=== PATIENT | female | born 1980 | race Caucasian/White ===

== ENCOUNTER → 2018-06-20 | Outpatient (CLI) | payer OTHER ==
[2018-06-20 15:00] VITALS: BP 138/72; PULSE 78; TEMP 98.2
--- NOTE | 2018-06-20 15:24 | P.HPBAR ---
Bariatric H&P - History & Physicial H&P Date: 06/20/18 History & Physicial: Visit/CC: inital clinic visit Patient initial contact: Initial weight: Initial weight in pounds: Height: 5 ft 2 in Initial BMI: Last weight: Current weight: Current weight in pounds: Current BMI: [place] body weight (based on NIH guidelines): 49.895 kg Excess body weight loss: The patient is a 38 year-old F who presents for Bariatric Assessment. Patient presents today as a new patient bariatric evaluation. Patient recently went to a seminar put on by Dr. Latham. She just recently started a 6 month supervised weight loss program. She has done 2 months so far. Patient suffers from GERD symptoms. No DVT or dysphagia in the past. Interested in sleeve gastrectomy. Review of Systems The patient denies any acute changes in vision or hearing, no dysphagia or odynophagia, no chest pain or shortness of breath, no dysuria or hematuria, no headache, no runny nose, no rectal bleeding or melena, no unexplained weight loss Past Medical History Past Medical History: Osteoarthritis (OA) History of Any Multi-Drug Resistant Organisms: None Reported Past Surgical History: Section, Tonsillectomy Past Anesthesia/Blood Transfusion Reactions: No Reported Reaction Past Psychological History: No Psychological Hx Reported Smoking Status: Former smoker Past Alcohol Use History: None Reported Additional Past Alcohol Use History / Comment(s): quit 6 months ago Past Drug Use History: None Reported Surgical - Exam Vital Signs Temp Pulse BP 98.2 F 78 138/72 06/20/18 14:52 06/20/18 14:52 06/20/18 14:52 Physical exam: General: Well-developed, well-nourished HEENT: Normocephalic, sclerae nonicteric Abdomen: Nontender, nondistended Extremities: No edema Neuro: Alert and oriented Bariatric Assessment & Plan (1) Morbid obesity Narrative/Plan: 38-year-old female with morbid obesity. Surgical risks and benefits of sleeve gastrectomy and gastric bypass reviewed. Patient remains interested in sleeve gastrectomy. The risks of bleeding, infection, stenosis, stricture, leak, abscess, fistula formation, peritonitis, poor weight loss, reflux, vomiting, conversion to an open procedure, aborting sleeve gastrectomy, UT, PE, DVT, and were discussed. The patient understands and wishes to proceed. Status: Acute Bariatric Checklist Checklist: Plan: Checklist: EGD: 1. Hiatal hernia: 2. H. Pylori: HgbA1c: Vitamin D: Smoking: Former smoker Primary care physician referral: dr brownlee Psychiatry clearance: Cardiology clearance: Sleep study: Diet journal: VTE risk score: VTE risk level: Rehab needs at discharge:
== END | disposition home or self-care (01) ==
LOC: BARWHC3 14:16
PROVIDERS: ATTEND Surgery
DX: E66.01 Morbid (severe) obesity due to excess calories (principal); Z87.891 Personal history of nicotine dependence; Z68.42 Body mass index [BMI] 45.0-49.9, adult
CPT/HCPCS: 99201

== ENCOUNTER 2020-10-14 15:38 | Emergency (ER) | payer OTHER ==
[2020-10-14 16:00] VITALS: BP 131/75; PULSE 98; RESP 18; TEMP 99.1
[2020-10-14] MEDS ORDERED: KETOROLAC 15 MG/ML 1 ML VIAL IM STA (16:19)
--- NOTE | 2020-10-14 16:38 | ED ---
General Adult HPI - General Chief complaint: Extremity Problem,Nontraumatic Stated complaint: R Leg Pain Time Seen by Provider: 10/14/20 16:03 Source: patient, RN notes reviewed, old records reviewed Mode of arrival: ambulatory Limitations: no limitations - History of Present Illness Initial comments: 40-year-old female patient to the ED for evaluation of right posterior hamstring pain. Patient reports that she has some localized tenderness in her left posterior hamstring region. Denies any other areas of pain or any falls or trauma. Denies any back pain, saddle anesthesia, new onset paresthesias or weakness. Systemic: Pt denies fatigue, fever/chills, rash. Pt denies weakness, night sweats, weight loss. Neuro: Pt denies headache, visual disturbances, syncope or pre-syncope. HEENT: Pt denies ocular discharge or irritation, otalgia, rhinorrhea, pharyngitis or notable lymphadenopathy. Cardiopulmonary: Pt denies chest pain, SOB, heart palpitations, dyspnea on exertion. Abdominal/GI: Pt denies abdominal pain, n/v/d. : Pt denies dysuria, burning w/ urination, frequency/urgency. Denies new onset urinary or bowel incontinence. MSK: Pt denies loss of strength or function in extremities. Neuro: Pt denies new onset weakness, paresthesias. - Related Data Home Medications Medication Instructions Recorded Confirmed Phentermine HCl [Adipex P] 15 mg PO DAILY 06/20/18 06/20/18 Allergies Allergy/AdvReac Type Severity Reaction Status Date / Time shellfish derived [Shellfish] Allergy Rash/Hives Verified 10/14/20 16:00 latex AdvReac Rash/Hives Verified 10/14/20 16:00 Review of Systems ROS Statement: Those systems with pertinent positive or pertinent negative responses have been documented in the HPI. ROS Other: All systems not noted in ROS Statement are negative. Past Medical History Past Medical History: Osteoarthritis (OA) History of Any Multi-Drug Resistant Organisms: None Reported Past Surgical History: Section, Tonsillectomy Additional Past Surgical History / Comment(s): lithotripsy Past Anesthesia/Blood Transfusion Reactions: No Reported Reaction Past Psychological History: Anxiety Smoking Status: Current every day smoker Past Alcohol Use History: None Reported Past Drug Use History: None Reported General Exam - General Exam Comments Initial Comments: Constitutional: NAD, AOX3, Pt has pleasant affect. HEENT: NC/AT, trachea midline, neck supple, no lymphadenopathy. Posterior pharynx non erythematous, without exudates. External ears appear normal, without discharge. Mucous membranes moist. Eyes PERRLA, EOM intact. There is no scleral icterus. No pallor noted. Cardiopulmonary: RRR, no murmurs, rubs or gallops, no JVD noted. Lungs CTAB in anterior and posterior cleary. No peripheral edema. Abdominal exam: Abdomen soft and non-distended. Abdomen non-tender to palpation in all 4 quadrants. Bowel sounds active in LLQ. No hepatosplenomegaly. No ecchymosis Neuro: CN II-XII grossly intact. No nuchal rigidity. No raccon eyes, no flores sign, no hemotympanum. No cervical spinal tenderness. MSK: mild tenderness to the right posterior hamstring region. No skin changes. Distal strength intact and equal. Distal pulses intact and equal. No posterior calf tenderness bilaterally, homans sign negative bilaterally. Posterior tibialis and radial pulse +2 bilaterally. Sensation intact in upper and lower extremities. Full active ROM in upper and lower extremities, 5/5 stregnth. Limitations: no limitations Course Vital Signs 10/14/20 10/14/20 10/14/20 15:57 16:59 17:20 Temperature 99.1 F 99.1 F Pulse Rate 98 98 Respiratory 18 18 18 Rate Blood Pressure 131/75 131/75 O2 Sat by Pulse 97 97 Oximetry Medical Decision Making - Medical Decision Making 40-year-old female patient ED for left posterior hamstring pain. Ultrasound was negative for DVT. There is no external skin changes. Pain reproducible with movement, appears to be musculoskeletal. Distal pulses and strength intact and equal. Patient will use [id number] analgesia Tylenol and Motrin will follow-up with primary care provider tomorrow and return for any worsening symptoms. Case discussed with Dr. Maurice. Disposition Clinical Impression: Myalgia Disposition: HOME SELF-CARE Condition: Stable Instructions (If sedation given, give patient instructions): Musculoskeletal Pain (ED) Additional Instructions: Follow up with PCP tomorrow. Return to ED with any worsening symptoms. Is patient prescribed a controlled substance at d/c from ED?: No Referrals: Henry Coyne MD [Primary Care Provider] - 1-2 days
--- NOTE | 2020-10-14 16:46 | US ---
EXAMINATION TYPE: US venous doppler duplex LE RT DATE OF EXAM: 10/14/2020 4:40 PM COMPARISON: NONE CLINICAL HISTORY: pain. right leg pain x 2 days, no h/o dvt SIDE PERFORMED: Right TECHNIQUE: The lower extremity deep venous system is examined utilizing real time linear array sonog soumya with graded compression, doppler sonography and color-flow sonography. VESSELS IMAGED: Common Femoral Vein Deep Femoral Vein Greater Saphenous Vein * Femoral Vein Popliteal Vein Small Saphenous Vein * Proximal Calf Veins (* superficial vessels) Right Leg: Negative for DVT IMPRESSION: No evidence of deep vein thrombosis in the right leg.
== END 2020-10-14 17:23 | disposition home or self-care (01) ==
LOC: EC 15:38
DX: M79.10 Myalgia, unspecified site (principal); F17.200 Nicotine dependence, unspecified, uncomplicated; Z79.899 Other long term (current) drug therapy; Z91.013 Allergy to seafood; Z91.040 Latex allergy status
CPT/HCPCS: 93971; 99284; 96372; J1885

== ENCOUNTER 2023-03-13 21:20 | Emergency (ER) | payer OTHER ==
[2023-03-13 21:30] VITALS: BP 150/105; PULSE 72; RESP 16; TEMP 98.2
[2023-03-13] MEDS ORDERED: SODIUM CHLORIDE 0.9% 1,000 ML IV STA (21:55)
[2023-03-13] MEDS ORDERED: methylPREDNISolone SOD SUCCI 125 MG/2 ML VIAL IV STA (21:56)
[2023-03-13] MEDS ORDERED: FAMOTIDINE 20 MG/2 ML VIAL IV STA (21:56)
[2023-03-13] MEDS ORDERED: diphenhydrAMINE 50 MG/ML 1 ML VIAL IVP STA (21:56)
--- NOTE | 2023-03-13 22:05 | ED ---
Dizziness HPI - General Chief Complaint: Dizziness Stated Complaint: vertigo Time Seen by Provider: 03/13/23 21:41 Source: patient, RN notes reviewed Mode of arrival: ambulatory Limitations: no limitations - History of Present Illness Initial Comments: This is a 42-year-old female who presents to the emergency department for dizziness. States that over the last 3-4 days, she has had dizziness that seems to get worse with positional changes. Describes this as a room spinning sensation. Believes that she is having problems with vertigo. However, her largest concern is that after the dizziness episodes, she goes into a "brain fog", where she is slow to respond and almost confused for a period of time. She did have some problems with chest pain a couple of days ago and is currently experiencing sinus pressure. However, she believes that the chest pain was indigestion, as it resolved with Tums. Denies any shortness of breath, nausea, or vomiting. Denies any upper respiratory symptoms. Denies any hearing loss, she does have ringing in the ears, however that is not a new problem. Denies any fevers, chills, sore throat, cough, dyspnea, palpitations, abdominal pain, nausea, vomiting, diarrhea, or back pain. MD Complaint: dizziness, lightheadedness Onset/Timin -: days(s) Description: "room spinning" History of Same: No History of Trauma: No - Related Data Home Medications Medication Instructions Recorded Confirmed Phentermine HCl [Adipex P] 15 mg PO DAILY 06/20/18 06/20/18 Previous Rx's Medication Instructions Recorded Meclizine [Antivert] 25 mg PO TID PRN #20 tab 03/13/23 Metoclopramide [Reglan] 10 mg PO Q6H PRN #20 tab 03/13/23 Allergies Allergy/AdvReac Type Severity Reaction Status Date / Time shellfish derived [Shellfish] Allergy Rash/Hives Verified 03/13/23 21:26 latex AdvReac Rash/Hives Verified 03/13/23 21:26 Review of Systems ROS Statement: Those systems with pertinent positive or pertinent negative responses have been documented in the HPI. ROS Other: All systems not noted in ROS Statement are negative. Past Medical History Past Medical History: Osteoarthritis (OA) History of Any Multi-Drug Resistant Organisms: None Reported Past Surgical History: Section, Tonsillectomy Additional Past Surgical History / Comment(s): lithotripsy Past Anesthesia/Blood Transfusion Reactions: No Reported Reaction Past Psychological History: Anxiety Smoking Status: Former smoker, Vaper Past Alcohol Use History: Rare Past Drug Use History: Marijuana General Exam Limitations: no limitations General appearance: alert, in no apparent distress Head exam: Present: atraumatic, normocephalic, normal inspection Eye exam: Present: normal appearance, PERRL, EOMI. Absent: scleral icterus, conjunctival injection, periorbital swelling Pupils: Present: normal accommodation ENT exam: Present: TM's normal bilaterally, normal external ear exam Respiratory exam: Present: normal lung sounds bilaterally. Absent: respiratory distress, wheezes, rales, rhonchi, stridor Cardiovascular Exam: Present: regular rate, normal rhythm, normal heart sounds. Absent: systolic murmur, diastolic murmur, rubs, gallop, clicks Neurological exam: Present: alert, oriented X3, CN II-XII intact Expanded Cerebellar function: Finger to Nose: Normal, Heel to Isabel: Normal, Romberg: Normal Motor strength exam: RUE: 5, LUE: 5, RLE: 5, LLE: 5 Psychiatric exam: Present: normal affect, normal mood Skin exam: Present: warm, dry, intact, normal color. Absent: rash Course Vital Signs 03/13/23 21:26 Temperature 98.2 F Pulse Rate 72 Respiratory 16 Rate Blood Pressure 150/105 O2 Sat by Pulse 99 Oximetry Medical Decision Making - Medical Decision Making This is a 42-year-old female who presents to the emergency department for dizziness. Was pt. sent in by a medical professional or institution? @ -No Did you speak to anyone other than the patient for history? @ -Her spouse Did you review nursing and triage notes? @ -Yes, and I agree, it is accurate with regards to the patient's symptoms. Were old charts reviewed? @ -No Differential Diagnosis? @ -Differential Dizziness: Benign paroxysmal positional Vertigo, Menieres disease, otitis media, acoustic neuroma, vertebrobasilar insufficiency, cerebellar stroke, encephalitis, hypovolemic, arrhythmia, coronary artery syndrome, anemia, this is not meant to be an all-inclusive list EKG interpreted by me (3pts min.)? @ -Sinus bradycardia. Ventricular rate 56 bpm, OR interval 172 ms, QRS duratio n 86 ms, QTC [address] interpreted by me (1pt min.)? @ -Computed tomography scan of the brain without contrast and CT angiogram of the head and neck obtained. My interpretation identifies no evidence of any ischemic changes, intracranial hemorrhage, aneurysm, or mass effect. What testing was considered but not performed? (CT, X-rays, U/S, labs)? Why? @ -None What meds were considered but not given? Why? @ -None Did you discuss the management of the patient with other professionals? @ -No Did you reconcile home meds? @ -No Was smoking cessation discussed for >3mins.? @ -No Was critical care preformed (if so, how long)? @ -No Were there social determinants of health that impacted care today? How? (Homelessness, low income, unemployed, alcoholism, drug addiction, transportation, low edu. Level, literacy, decrease access to med. care, [facility] [facility], rehab)? @ -No Was there de-escalation of care discussed even if they declined? (Discuss DNR or withdrawal of care, Hospice)? @ -No What co-morbidities impacted this encounter? (DM, HTN, Smoking, COPD, CAD, Cancer, CVA, Hep., AIDS, mental health diagnosis, sleep apnea, morbid obesity)? @ -None Was patient admitted / discharged? @ -Discharged. Lab work obtained and found to be nonactionable. The bradycardia on her EKG is a chronic finding according to the patient. Given that she does not have a history of vertigo, stroke workup was obtained with a computed tomography scan of the brain without contrast and CT angiogram of the head and neck. Imaging reveals no acute findings. She does have a shellfish allergy and was given Solu-Medrol, Benadryl, and Pepcid prior to the computed tomography scan. Because she received the Benadryl, she was not immediately given meclizine. However, she did feel like she had improvement in symptoms following the Benadryl. She was able to turn her head and walk around without the dizziness returning. Given that symptoms improved with an antihistamine, are positional in nature, and because her workup was otherwise unremarkable, symptoms most likely related to a vertigo. Additionally, she has no HEAD CAGER signs or symptoms to suggest a central lesion. Patient overall feels substantially improved and requests discharge home. Prescription for meclizine and Reglan provided with dosing instructions reviewed. Advised she start with the meclizine, and if that is not effective, she can try taking the Reglan. Also advised she look up the half somersault maneuver by Dr. Deya Allen on YouTube for additional treatment options. She will follow up with her primary care provider for reevaluation of ongoing symptoms. Undiagnosed new problem with uncertain prognosis? @ -None Drug Therapy requiring intensive monitoring for toxicity (Heparin, Nitro, Insulin, Cardizem)? @ -None Were any procedures done? @ -None Diagnosis/symptom? @ -BPPV Acute, or Chronic, or Acute on Chronic? @ -Acute Uncomplicated (without systemic symptoms) or Complicated (systemic symptoms)? @ -Uncomplicated Side effects of treatment? @ -None Exacerbation, Progression, or Severe Exacerbation] @ -Not applicable Poses a threat to life or bodily function? @ -No Return precautions reviewed in depth, the patient is instructed to return to the emergency department with any new, worsening, or concerning symptoms. Patient verbalized understanding. This case was discussed in detail with the attending ED physician, Dr. Stuart. Presentation, findings, and treatment plan discussed in detail as well. - Lab Data Result diagrams: 03/13/23 22:20 03/13/23 22:20 Lab Results 03/13/23 03/13/23 03/13/23 Range/Units 22:08 22:20 22:20 WBC 6.5 (3.8-10.6) k/uL RBC 3.88 (3.80-5.40) m/uL Hgb 12.5 (11.4-16.0) gm/dL Hct 37.5 (34.0-46.0) % MCV 96.5 (80.0-100.0) fL MCH 32.2 (25.0-35.0) pg MCHC 33.4 (31.0-37.0) g/dL RDW 12.2 (11.5-15.5) % Plt Count 193 (150-450) k/uL MPV 8.5 Neutrophils % 62 % Lymphocytes % 30 % Monocytes % 5 % Eosinophils % 2 % Basophils % 1 % Neutrophils # 4.1 (1.3-7.7) k/uL Lymphocytes # 1.9 (1.0-4.8) k/uL Monocytes # 0.3 (0-1.0) k/uL Eosinophils # 0.1 (0-0.7) k/uL Basophils # 0.0 (0-0.2) k/uL PT 9.9 (9.0-12.0) sec INR 0.9 (<1.2) Sodium (137-145) mmol/L Potassium (3.5-5.1) mmol/L Chloride (98-107) mmol/L Carbon Dioxide (22-30) mmol/L Anion Gap mmol/L BUN (7-17) mg/dL Creatinine (0.52-1.04) mg/dL Est GFR (CKD-EPI)AfAm (>60 ml/min/1.73 sqM) Est GFR (CKD-EPI)NonAf (>60 ml/min/1.73 sqM) Glucose (74-99) mg/dL Plasma Lactic Acid Parveen (0.7-2.0) mmol/L Calcium (8.4-10.2) mg/dL Total Bilirubin (0.2-1.3) mg/dL AST (14-36) U/L ALT (4-34) U/L Alkaline Phosphatase (38-126) U/L Troponin I (0.000-0.034) ng/mL Total Protein (6.3-8.2) g/dL Albumin (3.5-5.0) g/dL Urine Color Light Yellow Urine Appearance Clear (Clear) Urine pH 7.0 (5.0-8.0) Ur Specific Harvey 1.014 (1.001-1.035) Urine Protein Negative (Negative) Urine Glucose (UA) Negative (Negative) Urine Ketones Negative (Negative) Urine Blood Small H (Negative) Urine Nitrite Negative (Negative) Urine Bilirubin Negative (Negative) Urine Urobilinogen <2.0 (<2.0) mg/dL Ur Leukocyte Esterase Negative (Negative) Urine RBC 4 (0-5) /hpf Urine WBC <1 (0-5) /hpf Ur Squamous Epith Cells 1 (0-4) /hpf Urine Mucus Rare H (None) /hpf Urine Opiates Screen Not Detected (NotDetected) Ur Oxycodone Screen Not Detected (NotDetected) Urine Methadone Screen Not Detected (NotDetected) Ur Propoxyphene Screen Not Detected (NotDetected) Ur Barbiturates Screen Not Detected (NotDetected) U Tricyclic Antidepress Not Detected (NotDetected) Ur Phencyclidine Scrn Not Detected (NotDetected) Ur Amphetamines Screen Not Detected (NotDetected) U Methamphetamines Scrn Not Detected (NotDetected) U Benzodiazepines Scrn Not Detected (NotDetected) Urine Cocaine Screen Not Detected (NotDetected) U Marijuana (THC) Screen Detected H (NotDetected) 03/13/23 03/13/23 03/13/23 Range/Units 22:20 22:20 22:20 WBC (3.8-10.6) k/uL RBC (3.80-5.40) m/uL Hgb (11.4-16.0) gm/dL Hct (34.0-46.0) % MCV (80.0-100.0) fL MCH (25.0-35.0) pg MCHC (31.0-37.0) g/dL RDW (11.5-15.5) % Plt Count (150-450) k/uL MPV Neutrophils % % Lymphocytes % % Monocytes % % Eosinophils % % Basophils % % Neutrophils # (1.3-7.7) k/uL Lymphocytes # (1.0-4.8) k/uL Monocytes # (0-1.0) k/uL Eosinophils # (0-0.7) k/uL Basophils # (0-0.2) k/uL PT (9.0-12.0) sec INR (<1.2) Sodium 134 L (137-145) mmol/L Potassium 4.2 (3.5-5.1) mmol/L Chloride 106 (98-107) mmol/L Carbon Dioxide 23 (22-30) mmol/L Anion Gap 5 mmol/L BUN 18 H (7-17) mg/dL Creatinine 0.73 (0.52-1.04) mg/dL Est GFR (CKD-EPI)AfAm >90 (>60 ml/min/1.73 sqM) Est GFR (CKD-EPI)NonAf >90 (>60 ml/min/1.73 sqM) Glucose 114 H (74-99) mg/dL Plasma Lactic Acid Parveen 0.6 L (0.7-2.0) mmol/L Calcium 8.4 (8.4-10.2) mg/dL Total Bilirubin 0.4 (0.2-1.3) mg/dL AST 21 (14-36) U/L ALT 22 (4-34) U/L Alkaline Phosphatase 59 (38-126) U/L Troponin I <0.012 (0.000-0.034) ng/mL Total Protein 6.3 (6.3-8.2) g/dL Albumin 3.6 (3.5-5.0) g/dL Urine Color Urine Appearance (Clear) Urine pH (5.0-8.0) Ur Specific Harvey (1.001-1.035) Urine Protein (Negative) Urine Glucose (UA) (Negative) Urine Ketones (Negative) Urine Blood (Negative) Urine Nitrite (Negative) Urine Bilirubin (Negative) Urine Urobilinogen (<2.0) mg/dL Ur Leukocyte Esterase (Negative) Urine RBC (0-5) /hpf Urine WBC (0-5) /hpf Ur Squamous Epith Cells (0-4) /hpf Urine Mucus (None) /hpf Urine Opiates Screen (NotDetected) Ur Oxycodone Screen (NotDetected) Urine Methadone Screen (NotDetected) Ur Propoxyphene Screen (NotDetected) Ur Barbiturates Screen (NotDetected) U Tricyclic Antidepress (NotDetected) Ur Phencyclidine Scrn (NotDetected) Ur Amphetamines Screen (NotDetected) U Methamphetamines Scrn (NotDetected) U Benzodiazepines Scrn (NotDetected) Urine Cocaine Screen (NotDetected) U Marijuana (THC) Screen (NotDetected) - Radiology Data Radiology results: report reviewed, image reviewed Disposition Clinical Impression: BPPV (benign paroxysmal positional vertigo) Disposition: HOME SELF-CARE Instructions (If sedation given, give patient instructions): Vertigo (ED), Benign Paroxysmal Positional Vertigo (ED), Dizziness (ED) Additional Instructions: Return to the emergency department with any new, worsening, or concerning symptoms. If symptoms return, try taking the Antivert. If that is not effective, you can try taking the Reglan. The Reglan can also be used for nausea. You can also look up the half sommersault maneuver on Youtube by Dr. Deya Allen. This is another treatment option for vertigo symptoms. Follow up with your primary care provider in 1-2 days. Prescriptions: Meclizine [Antivert] 25 mg PO TID PRN #20 tab PRN Reason: Nausea And Vomiting Metoclopramide [Reglan] 10 mg PO Q6H PRN #20 tab PRN Reason: Nausea And Vomiting Is patient prescribed a controlled substance at d/c from ED?: No Referrals: Henry Coyne MD [Primary Care Provider] - 1-2 days
[2023-03-13 22:44] LABS: Basophils % (A) 1 %; Eosinophils # (A) 0.1 k/uL (0-0.7); Eosinophils % (A) 2 %; HCT 37.5 % (34.0-46.0); HGB 12.5 gm/dL (11.4-16.0); Lymphocytes # (A) 1.9 k/uL (1.0-4.8); Lymphocytes % (A) 30 %; MCH 32.2 pg (25.0-35.0); MCHC 33.4 g/dL (31.0-37.0); MCV 96.5 fL (80.0-100.0); Mean Platelet Volume 8.5; Monocytes # (A) 0.3 k/uL (0-1.0); Monocytes % (A) 5 %; Neutrophils # (A) 4.1 k/uL (1.3-7.7); Neutrophils % (A) 62 %; Platelet Count 193 k/uL (150-450); RBC 3.88 m/uL (3.80-5.40); RDW 12.2 % (11.5-15.5); WBC 6.5 k/uL (3.8-10.6)
[2023-03-13 22:49] LABS: INR 0.9 (<1.2); Prothrombin Time 9.9 sec (9.0-12.0)
[2023-03-13 23:05] LABS: Appearance,Urine Clear (Clear); Bilirubin,Urine Negative (Negative); Blood,Urine Small (Negative); Color,Urine Light Yellow; Glucose,Urine (UA) Negative (Negative); Ketones,Urine Negative (Negative); Leukocyte Esterase,Urine Negative (Negative); Mucus,Urine Rare /hpf; Nitrite,Urine Negative (Negative); Protein,Urine Negative (Negative); RBC,Urine 4 /hpf (0-5); Specific Gravity,Urine 1.014 (1.001-1.035); Squamous Epithelial Cell,Urine 1 /hpf (0-4); Urobilinogen,Urine <2.0 mg/dL (<2.0); WBC,Urine <1 /hpf (0-5)
[2023-03-13 23:07] LABS: Amphetamine Screen,Urine Not Detected (NotDetected); Barbiturate Screen,Urine Not Detected (NotDetected); Benzodiazepines Screen,Urine Not Detected (NotDetected); Cocaine Screen,Urine Not Detected (NotDetected); Methadone Screen, Urine Not Detected (NotDetected); Opiate Screen,Urine Not Detected (NotDetected); Oxycodone Screen, Urine Not Detected (NotDetected); Phencyclidine Screen,Urine Not Detected (NotDetected); Tricyclic Antidepressant,Urine Not Detected (NotDetected); Urn Cannabinoid Scrn Detected (NotDetected)
[2023-03-13 23:09] LABS: ALT 22 U/L (4-34); AST 21 U/L (14-36); African American GFR (CKD) >90 (>60 ml/min/1.73 sqM); Albumin 3.6 g/dL (3.5-5.0); Alkaline Phosphatase 59 U/L (38-126); Anion Gap 5 mmol/L; Blood Urea Nitrogen 18 mg/dL (7-17); Calcium 8.4 mg/dL (8.4-10.2); Carbon Dioxide 23 mmol/L (22-30); Chloride 106 mmol/L (98-107); Glucose 114 mg/dL (74-99); Non-African American GFR(CKD) >90 (>60 ml/min/1.73 sqM); Potassium 4.2 mmol/L (3.5-5.1); Sodium 134 mmol/L (137-145); Total Bilirubin 0.4 mg/dL (0.2-1.3); Total Protein 6.3 g/dL (6.3-8.2)
--- NOTE | 2023-03-13 23:24 | CT ---
EXAMINATION TYPE: CT brain wo con CT DLP: 2126.9 mGycm, Automated exposure control for dose reduction was used. DATE OF EXAM: 03/13/2023 11:20 PM COMPARISON: None. CLINICAL INDICATION:Female, 42 years old with history of dizziness, dizzy TECHNIQUE: Brain: Multiple axial CT images of the brain were obtained without IV contrast. Coronal and sagittal reformats reviewed. FINDINGS: Brain: Extra-axial spaces: No abnormal extra-axial fluid collections. Ventricular system: Within normal limits Cerebral parenchyma: No acute intraparenchymal hemorrhage or mass effect. The epps-white junction is well differentiated. Cerebellum: Unremarkable. Mass effect: No evidence of midline shift. Intracranial vasculature: unremarkable Soft tissues: Normal. Calvarium/osseous structures: No depressed skull fracture. Paranasal sinuses and mastoid air cells: Clear Visualized orbits: Orbital contents are intact. IMPRESSION: No acute intracranial process.
--- NOTE | 2023-03-13 23:28 | CT ---
EXAMINATION TYPE: CT angio head neck CT DLP: 2126.9 mGycm, Automated exposure control for dose reduction was used. DATE OF EXAM: 03/13/2023 11:20 PM COMPARISON: CT brain of the same date. CLINICAL INDICATION:Female, 42 years old with history of Dizziness, disorientation; PHH, dizzy TECHNIQUE: Axially acquired helical CT angiogram of the head and neck was obtained with contrast util izing 65 cc of Isovue-370 administered intravenously. Axial images are supplemented with 3D reconstru ctions which were post-processed at an independent workstation. NASCET criteria used. FINDINGS: CTA HEAD: No evidence of acute intracranial hemorrhage, mass effect, or midline shift. The ventricles, sulci, a nd cisterns are unremarkable. The visualized portions of the internal carotid arteries, middle cerebral arteries, anterior cerebral arteries, and posterior cerebral arteries are patent. The basilar and vertebral arteries are patent. CTA NECK: Right Carotid System: The common carotid artery and external carotid artery are patent. The carotid bifurcation demonstrate s no evidence of hemodynamically significant stenosis. The remaining portions of the internal carotid artery demonstrate normal size without significant narrowing. Left Carotid System: The common carotid artery and external carotid artery are patent. The carotid bifurcation demonstrate s no evidence of hemodynamically significant stenosis. The remaining portions of the internal carotid artery demonstrate normal size without significant narrowing. Vertebral arteries are patent without evidence hemodynamically significant stenosis. There is a three-vessel aortic arch. The origins of the great vessels are patent. No evidence of hemo dynamically significant stenosis. IMPRESSION: 1. No evidence of dissection of the cervical internal carotid arteries or vertebral arteries or any e vidence of significant stenosis at the carotid bifurcations. 2. No evidence of high-grade stenosis or intracranial aneurysm.
[2023-03-13] MEDS ORDERED: METOCLOPRAMIDE 10 MG TAB PO STA (23:41)
[2023-03-13] MEDS ORDERED: MECLIZINE 12.5 MG TAB PO STA (23:41)
== END 2023-03-14 00:54 | disposition home or self-care (01) ==
LOC: EC 21:20
DX: H81.13 Benign paroxysmal vertigo, bilateral (principal); F17.290 Nicotine dependence, other tobacco product, uncomplicated; F12.90 Cannabis use, unspecified, uncomplicated; Z91.040 Latex allergy status; Z91.018 Allergy to other foods
CPT/HCPCS: 36415; 93005; 80053; 83605; 84484; 85025; 85610; 81001; 80306; 70496; 70450; 70498; 99284; 96374; 96375 ×2; 96361; J1200; J2930; Q9967

== ENCOUNTER 2023-04-13 18:57 | Inpatient (IN) | payer OTHER ==
[2023-04-13] MEDS ORDERED: methylPREDNISolone SOD SUCCIN 1,000 MG in SODIUM CHLORIDE 0.9% 250 ML IVPB STA (21:40)
[2023-04-13 22:13] LABS: Basophils % (A) 1 %; Eosinophils # (A) 0.1 k/uL (0-0.7); Eosinophils % (A) 1 %; HCT 42.4 % (34.0-46.0); HGB 14.6 gm/dL (11.4-16.0); Lymphocytes # (A) 2.4 k/uL (1.0-4.8); Lymphocytes % (A) 27 %; MCH 32.8 pg (25.0-35.0); MCHC 34.5 g/dL (31.0-37.0); MCV 95.1 fL (80.0-100.0); Monocytes # (A) 0.4 k/uL (0-1.0); Monocytes % (A) 4 %; Neutrophils # (A) 6.1 k/uL (1.3-7.7); Neutrophils % (A) 67 %; Platelet Count 238 k/uL (150-450); RBC 4.46 m/uL (3.80-5.40); RDW 12.2 % (11.5-15.5); WBC 9.1 k/uL (3.8-10.6)
[2023-04-13 22:26] LABS: ALT 24 U/L (4-34); AST 22 U/L (14-36); African American GFR (CKD) >90 (>60 ml/min/1.73 sqM); Albumin 4.1 g/dL (3.5-5.0); Alkaline Phosphatase 69 U/L (38-126); Anion Gap 10 mmol/L; Blood Urea Nitrogen 17 mg/dL (7-17); Calcium 9.1 mg/dL (8.4-10.2); Carbon Dioxide 21 mmol/L (22-30); Chloride 106 mmol/L (98-107); Glucose 95 mg/dL (74-99); Non-African American GFR(CKD) >90 (>60 ml/min/1.73 sqM); Potassium 3.9 mmol/L (3.5-5.1); Sodium 137 mmol/L (137-145); Total Bilirubin 0.5 mg/dL (0.2-1.3); Total Protein 6.9 g/dL (6.3-8.2)
[2023-04-13 22:27] LABS: C Reactive Protein <0.5 mg/dL (<1.0)
--- NOTE | 2023-04-13 23:08 | CT ---
EXAMINATION TYPE: CT brain wo con CT DLP: 1143.4 mGycm, Automated exposure control for dose reduction was used. DATE OF EXAM: 04/13/2023 11:01 PM COMPARISON: 03/13/2022. CLINICAL INDICATION:Female, 42 years old with history of optic neuritis, Vision loss to Left eye x3da ys. Rt leg tingling and numbness x1wk. TECHNIQUE: Brain: Axial CT images of the brain were obtained with coronal and sagittal reformats created and rev iewed. Contrast used: None. Oral contrast used: None. FINDINGS: Brain: Extra-axial spaces: No abnormal extra-axial fluid collections. Ventricular system: Within normal limits Cerebral parenchyma: No specific low-density area in the right posterior parietal region is unchanged from prior No acute intraparenchymal hemorrhage or mass effect. The epps-white junction is well dif ferentiated. Cerebellum: Unremarkable. Mass effect: No evidence of midline shift. Intracranial vasculature: unremarkable Soft tissues: Normal. Calvarium/osseous structures: No depressed skull fracture. Paranasal sinuses and mastoid air cells: Mild scattered paranasal sinus disease. Visualized orbits: Orbital contents are intact. IMPRESSION: Nonspecific white matter changes within the right posterior parietal region, consider further evaluat ion with MRI as clinically warranted. Similar to 03/13/2023. Finding could represent demyelination.
--- NOTE | 2023-04-13 23:10 | ED ---
General Adult HPI - General Chief complaint: Eye Problems Stated complaint: vision issues Time Seen by Provider: 04/13/23 21:13 Source: patient Mode of arrival: ambulatory Limitations: no limitations - History of Present Illness Initial comments: 42-year-old female presents to the emergency department reporting left vision loss. States that it has been progressive over the past couple of days. She awoke this morning and had complete vision loss in the left eye. States that it hurts. She saw a vp securities at 3:50 PM. States that she was there for 3 hours and had a full eye exam. Patient does have a piece of paper accompanying her which states that there is concern for optic neuritis on the left. Recommend MRI and steroids. Patient also admits to paresthesias in the right lower extremity. No history of similar issues in the past. Does admit to a headache. No fevers. No head trauma. No weakness in her extremities. Upper extremities are not affected at this time. No other alleviating, precipitating or modifying factors - Related Data Home Medications Medication Instructions Recorded Confirmed Ibuprofen [Motrin] 800 mg PO TID PRN 04/14/23 04/14/23 Previous Rx's Medication Instructions Recorded Acetaminophen Tab [Tylenol] 650 mg PO Q6HR PRN tab 04/17/23 Ergocalciferol [Vitamin D2 (1250 1,250 mcg PO Q7D #10 cap 04/17/23 Mcg = 99972 Iu)] predniSONE 10 mg PO DAILY #30 tab 04/17/23 Allergies Allergy/AdvReac Type Severity Reaction Status Date / Time shellfish derived [Shellfish] Allergy Rash/Hives Verified 04/14/23 11:04 latex AdvReac Rash/Hives Verified 04/14/23 11:04 Review of Systems ROS Statement: Those systems with pertinent positive or pertinent negative responses have been documented in the HPI. ROS Other: All systems not noted in ROS Statement are negative. Past Medical History Past Medical History: Osteoarthritis (OA) Additional Past Medical History / Comment(s): Kidney stones History of Any Multi-Drug Resistant Organisms: None Reported Past Surgical History: Section, Tonsillectomy Additional Past Surgical History / Comment(s): lithotripsy Past Anesthesia/Blood Transfusion Reactions: No Reported Reaction Past Psychological History: Anxiety Smoking Status: Former smoker, Vaper Past Alcohol Use History: Rare Past Drug Use History: Marijuana - Past Family History Mother Family Medical History: Cancer, Hypertension Father Family Medical History: Hypertension General Exam Limitations: no limitations General appearance: alert, in no apparent distress Head exam: Present: atraumatic, normocephalic, normal inspection Eye exam: Present: normal appearance, PERRL, EOMI. Absent: scleral icterus, conjunctival injection, periorbital swelling ENT exam: Present: normal exam, mucous membranes moist Neck exam: Present: normal inspection. Absent: tenderness, meningismus, lymphadenopathy Respiratory exam: Present: normal lung sounds bilaterally. Absent: respiratory distress, wheezes, rales, rhonchi, stridor Cardiovascular Exam: Present: regular rate, normal rhythm, normal heart sounds. Absent: systolic murmur, diastolic murmur, rubs, gallop, clicks GI/Abdominal exam: Present: soft, normal bowel sounds. Absent: distended, tenderness, guarding, rebound, rigid Extremities exam: Present: normal inspection, full ROM, normal capillary refill. Absent: tenderness, pedal edema, joint swelling, calf tenderness Back exam: Present: normal inspection Neurological exam: Present: alert, oriented X3, CN II-XII intact Psychiatric exam: Present: normal affect, normal mood Skin exam: Present: warm, dry, intact, normal color. Absent: rash Course Vital Signs 04/13/23 04/14/23 18:58 02:24 Temperature 97.7 F Pulse Rate 73 63 Respiratory 20 16 Rate Blood Pressure 122/74 109/63 O2 Sat by Pulse 100 97 Oximetry Medical Decision Making - Medical Decision Making Was pt. sent in by a medical professional or institution (, PA, POLICE WORKER, urgent care, hospital, or fci...) When possible be specific @ -no Did you speak to anyone other than the patient for history (EMS, parent, family, police, friend...)? What history was obtained from this source @ -no Did you review nursing and triage notes (agree or disagree)? Why? @ -I reviewed and agree with nursing and triage notes Were old charts reviewed (outside hosp., previous admission, EMS record, old EKG, old radiological studies, urgent care reports/EKG's, fci records)? Report findings @ -no old charts were reviewed Differential Diagnosis (chest pain, altered mental status, abdominal pain women, abdominal pain men, vaginal bleeding, weakness, fever, dyspnea, syncope, headache, dizziness, GI bleed, back pain, seizure, CVA, palpatations, mental health, musculoskeletal)? @ -cva,CRVO, CRAO, retinal detachment EKG interpreted by me (3pts min.). @ -not done X-rays interpreted by me (1pt min.). @ -not done CT interpreted by me (1pt min.). @ -yes - concerning for MS U/S interpreted by me (1pt. min.). @ -None done What testing was considered but not performed or refused? (CT, X-rays, U/S, labs)? Why? @ -None What meds were considered but not given or refused? Why? @ -None Did you discuss the management of the patient with other professionals (professionals i.e. , PA, POLICE WORKER, lab, RT, psych nurse, mental health social worker, state superintendent of schools, teacher, loan servicing officer, business case analyst)? Give summary @ -Dr Saxena - reqesting MRI Was smoking cessation discussed for >3mins.? @ -No Was critical care preformed (if so, how long)? @ -No Were there social determinants of health that impacted care today? How? (Homelessness, low income, unemployed, alcoholism, drug addiction, tra nsportation, low edu. Level, literacy, decrease access to med. care, halfway, rehab)? @ -No Was there de-escalation of care discussed even if they declined (Discuss DNR or withdrawal of care, Hospice)? DNR status @ -No What co-morbidities impacted this encounter? (DM, HTN, Smoking, COPD, CAD, Cancer, CVA, ARF, Chemo, Hep., AIDS, mental health diagnosis, sleep apnea, morbid obesity)? @ -None Was patient admitted / discharged? Hospital course, mention meds given and route, prescriptions, significant lab abnormalities, going to OR and other pertinent info. @ -Upon arrival the patient is placed into room 19. A thorough history and physical exam was performed. His visual acuity is assessed and is extremely poor in the left eye - hand waving only appreciated. Laboratory studies are conducted. Patient is sent for CT which demonstrates concern for demyelinating condition. Patient was given 1 g of methylprednisolone. Recommended admission. Called and spoke with Dr. saxena Is Requesting MRI of the Brain and Orbits. Spoke with Dr. martin for admission Undiagnosed new problem with uncertain prognosis? @ -yes Drug Therapy requiring intensive monitoring for toxicity (Heparin, Nitro, Insulin, Cardizem)? @ -No Were any procedures done? @ -no Diagnosis/symptom? @ -acute visal loss left eye, acute optic neuritis left eye, suspected MS Acute, or Chronic, or Acute on Chronic? @ -acute Uncomplicated (without systemic symptoms) or Complicated (systemic symptoms)? @ -complicated Side effects of treatment? @ -No Exacerbation, Progression, or Severe Exacerbation? @ -No Poses a threat to life or bodily function? How? (Chest pain, [place], [place], pneumonia, PE, COPD, DKA, ARF, appy, cholecystitis, CVA, Diverticulitis, Homicidal, Suicidal, threat to staff... and all critical care pts) @ -no - Lab Data Result diagrams: 04/15/23 06:01 04/15/23 06:01 Lab Results 04/13/23 04/13/23 Range/Units 21:45 21:45 WBC 9.1 (3.8-10.6) k/uL RBC 4.46 (3.80-5.40) m/uL Hgb 14.6 (11.4-16.0) gm/dL Hct 42.4 (34.0-46.0) % MCV 95.1 (80.0-100.0) fL MCH 32.8 (25.0-35.0) pg MCHC 34.5 (31.0-37.0) g/dL RDW 12.2 (11.5-15.5) % Plt Count 238 (150-450) k/uL MPV 8.0 Neutrophils % 67 % Lymphocytes % 27 % Monocytes % 4 % Eosinophils % 1 % Basophils % 1 % Neutrophils # 6.1 (1.3-7.7) k/uL Lymphocytes # 2.4 (1.0-4.8) k/uL Monocytes # 0.4 (0-1.0) k/uL Eosinophils # 0.1 (0-0.7) k/uL Basophils # 0.0 (0-0.2) k/uL ESR 9 (0-20) mm/hr Sodium 137 (137-145) mmol/L Potassium 3.9 (3.5-5.1) mmol/L Chloride 106 (98-107) mmol/L Carbon Dioxide 21 L (22-30) mmol/L Anion Gap 10 mmol/L BUN 17 (7-17) mg/dL Creatinine 0.66 (0.52-1.04) mg/dL Est GFR (CKD-EPI)AfAm >90 (>60 ml/min/1.73 sqM) Est GFR (CKD-EPI)NonAf >90 (>60 ml/min/1.73 sqM) Glucose 95 (74-99) mg/dL Calcium 9.1 (8.4-10.2) mg/dL Total Bilirubin 0.5 (0.2-1.3) mg/dL AST 22 (14-36) U/L ALT 24 (4-34) U/L Alkaline Phosphatase 69 (38-126) U/L C-Reactive Protein <0.5 (<1.0) mg/dL Total Protein 6.9 (6.3-8.2) g/dL Albumin 4.1 (3.5-5.0) g/dL Disposition Clinical Impression: Vision loss of left eye, Multiple sclerosis Disposition: ADMITTED IP TO THIS [facility] Condition: Good Is patient prescribed a controlled substance at d/c from ED?: No Time of Disposition: 23:53 Decision to Admit Reason: Admit from EC Decision Date: 04/13/23 Decision Time: 23:53
[2023-04-13 23:14] LABS: Erythrocyte Sedimentation Rate 9 mm/hr (0-20)
[2023-04-13] MEDS ORDERED: NALOXONE 0.4 MG/ML 1 ML VIAL IV PRN (23:54)
[2023-04-14] MEDS ORDERED: LORazepam 1 MG TAB PO STA (08:22)
--- NOTE | 2023-04-14 14:26 | MR ---
EXAMINATION TYPE: MR brain/orbits wo/w con DATE OF EXAM: 04/14/2023 COMPARISON: CT brain April 13, 2023 HISTORY: MS. Vision loss to Left eye x4days. Rt leg tingling and numbness x1wk TECHNIQUE: Multiplanar, multisequence images of the brain and brainstem along with orbits are all performed with out and with IV contrast, utilizing 10 mL intravenous Gadavist gadolinium contrast is administered in travenously. Demyelinating disease protocol with additional Sagittal Flair sequence performed. FINDINGS: T2 Lesions Present : Yes Approximate Number of Lesions: Approximately 15 Locations Identified : Scattered Size of Reference Lesion(s): 1. 9 x 9 x 8 mm deep right parietal lesion axial image 17 and sagittal image 191 Enhancing Lesion(s) Present: No T1 Hypointense Lesion(s) Present: Yes Change from Prior: n/a Diffusion weighted images demonstrate no evidence of a recent infarct or other diffusion abnormality. There is no worrisome extra-axial fluid collection. The ventricular system and cisternal spaces ar e normal in size and appearance. The brain volume is age appropriate. Midline structures demonstrate normal morphology. The craniocervical junction appears within normal limits. Post contrast images demonstrate no abnormal enhancement. The dural venous sinuses appear pa tent. The paranasal sinuses are clear. The globes appear intact bilaterally. Intraconal fat is preserved. Rectus muscles are symmetric and w ithin normal limits. There is asymmetric enhancement segment of the left optic nerve proximally rough ly 1.2 cm segment just posterior to the retina seen best image 10 series 901. Suprasellar cistern is maintained. Optic chiasm is not effaced. IMPRESSION: 1. Mild nonspecific white matter changes present in the basis of known multiple sclerosis. No abnorma l enhancing lesions are evident. 2. Abnormal enhancement of the left optic nerve consistent with active optic neuritis which correlate s with patient's symptoms.
[2023-04-14] MEDS ORDERED: LACTULOSE 20 GM/30 ML CUP PO PRN (16:29)
[2023-04-14] MEDS ORDERED: ONDANSETRON 4 MG/2 ML VIAL IVP PRN (16:29)
[2023-04-14] MEDS ORDERED: CALCIUM CARBONATE 500 MG CHEWABLE PO PRN (16:29)
--- NOTE | 2023-04-14 16:30 | P.HPIM ---
History of Present Illness H&P Date: 04/14/23 Chief Complaint: Loss of vision left eye This is a very pleasant 42-year-old patient who follows with Dr. Coyne. Chronic stable medical conditions include kidney stones, urinary incontinence, GERD, anxiety. Patient is accompanied by her mother and aunt at the bedside. About 5 days ago patient is developed pain in the left eye. Started getting a bit blurry. went to see Dr. Dr. Coyne. He then referred her to Dr. Hudson professor of biostatistics. Patient with diagnosed diabetic retrobulbar optic neuritis and send out of the ER. Patient for last 10 days also noticed some numbness in the right leg. No trouble walking. About a month ago patient had an episode of vertigo was having some trouble with his speech stent. Also has been feeling some heaviness in the left arm. Patient is chronically incontinent. No headache. Started on steroids in the ER. Review of systems: GEN.: Tired EYES: None HEENT: None NECK: None RESPIRATORY: None CARDIOVASCULAR: None GASTROINTESTINAL: None GENITOURINARY: None MUSCULOSKELETAL: None LYMPHATICS: None HEMATOLOGICAL: None PSYCHIATRY: None NEUROLOGICAL: As above, does sleep quite a bit Past medical history to include: Kidney stones, urinary incontinence, GERD, anxiety Social history: Patient lives with her 2 children ages 14 and 17. 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 Physical examination: VITAL SIGNS: 98.9, 69, 14, 1:30/87, 95% room air GENERAL: BMI 43.9, sitting up but awake not in distress. EYES: Pupils equal. Conjunctiva normal. HEENT: External appearance of nose and ears normal, oral cavity grossly normal. NECK: JVD not raised; masses not palpable. HEART: First and second heart sounds are normal; no edema. LUNGS: Respiratory rate normal; clear to auscultation. ABDOMEN: Soft, nontender, liver spleen not palpable, no masses palpable. PSYCH: Alert and oriented x3; mood and affect normal. MUSCULOSKELETAL:No Clubbing/cyanosis;muscles-grossly intact NEUROLOGICAL: Cranial nerves grossly intact; no facial asymmetry, power and sensation grossly intact. Vision through the left eye blurry. LYMPHATICS: No lymph nodes palpable in the axilla and neck INVESTIGATIONS, reviewed in the clinical context: White count 9.1 hemoglobin 14.6 platelets 238 sodium 137 potassium 3.9 creatinine 0.66 CRP less than 0.5 CT brain:White matter changes within the right posterior parietal region, similar to March 13. Brain orbit MRI. Mild nonspecific white matter changes present in the bases of abnormal enhancing lesions evident. Abnormal enhancement of the left optic nerve. Consistent no active optic neuritis. Assessment plan: -Acute left eye optic neuritis, failed up as a possible underlying diagnoses of multiple sclerosis. This has not been formally diagnosed. Will need a lumbar puncture. Neurology's been consulted. IV retired prednisone to 50 mg daily -GERD Pepcid when necessary -Chronic urine incontinence -Morbid obesity BMI 43.9 Weight loss measures -Rule out hypothyroid -Anxiety not otherwise specified Xanax when necessary Past Medical History Past Medical History: Osteoarthritis (OA) Additional Past Medical History / Comment(s): Kidney stones History of Any Multi-Drug Resistant Organisms: None Reported Past Surgical History: Section, Tonsillectomy Additional Past Surgical History / Comment(s): lithotripsy Past Anesthesia/Blood Transfusion Reactions: No Reported Reaction Past Psychological History: Anxiety Smoking Status: Former smoker, Vaper Past Alcohol Use History: Rare Past Drug Use History: Marijuana - Past Family History Mother Family Medical History: Cancer, Hypertension Father Family Medical History: Hypertension Medications and Allergies Home Medications Medication Instructions Recorded Confirmed Type Metoclopramide [Reglan] 10 mg PO Q6H PRN #20 tab 03/13/23 04/14/23 Rx Ibuprofen [Motrin] 800 mg PO TID PRN 04/14/23 04/14/23 History Meclizine [Antivert] 25 mg PO TID PRN 04/14/23 04/14/23 History Allergies Allergy/AdvReac Type Severity Reaction Status Date / Time shellfish derived [Shellfish] Allergy Rash/Hives Verified 04/14/23 11:04 latex AdvReac Rash/Hives Verified 04/14/23 11:04 Physical Exam Vitals: Vital Signs Temp Pulse Pulse Resp BP BP Pulse Ox 04/14/23 08:00 14 04/14/23 06:55 98.9 F 69 14 130/87 95 04/14/23 02:24 63 16 109/63 97 04/13/23 18:58 97.7 F 73 20 122/74 100 Intake and Output 04/13/23 04/14/23 04/14/23 22:59 06:59 14:59 Intake Total 590 Balance 590 Intake: Oral 590 Other: # Voids 2 Weight 108.862 kg 108.862 kg Results CBC & Chem 7: 04/13/23 21:45 04/13/23 21:45 Labs: Abnormal Lab Results - Last 24 Hours (Table) 04/13/23 Range/Units 21:45 Carbon Dioxide 21 L (22-30) mmol/L Thrombosis Risk Factor Assmnt - Choose All That Apply Any of the Below Risk Factors Present?: Yes Each Factor Represents 1 point: Age 41-60 years Thrombosis Risk Factor Assessment Total Risk Factor Score: 1 Thrombosis Risk Factor Assessment Level: Low Risk
[2023-04-14] MEDS: ENOXAPARIN 40 MG/0.4 ML SYRINGE SQ SCH ×2 (17:56→22:26)
[2023-04-14] MEDS: LORazepam 0.5 MG TAB PO PRN (22:26)
[2023-04-14] MEDS: methylPREDNISolone SOD SUCCIN 1,000 MG in SODIUM CHLORIDE 0.9% 250 ML IVPB SCH (22:27)
--- NOTE | 2023-04-15 09:12 | P.CNNES ---
History of Present Illness Consult date: 04/14/23 Requesting physician: Tiesha Springer Reason for Consult: Acute visual loss left eye, optic neuritis, suspected MS History of Present Illness: Patient is a 42-year-old female, otherwise healthy, who came to the hospital at 6:57 PM for subacute onset of monocular left eye vision loss. Patient states her symptoms started on 04/10/2023 with some blurred vision in the left eye, and some painful eye movements. The blurred vision got lot worse on Sunday. She saw an utility gelatin maker at [facility] who did not find any abnormality. Next day on , she started feeling partial loss of vision, like she has looked at the sun. She saw an hearse driver, on Sunday at 3:50 PM who performed a full eye examination, who felt patient has probable left optic neuritis on the left. Recommended MRI and steroids. Patient was recommended to go to the ER. Patient has been having recurrent neurological symptoms since October 2022 as mentioned below. Patient states that around Li time, she started having pain in the left elbow, like tennis elbow. Shortly after she developed numbness in the left upper arm, that extended to the forearm and then extended down the forearm up to the above wrist. About 1-2 months later, the same symptoms started involving the right arm as well. She was seen by her primary physician, who gave her steroid pack, which helped, but the symptoms have not resolved. Patient states that about 2 months ago she had an episode of vertigo, that lasted for quite some time. About 1-1/2 to 2 weeks ago she developed numbness of the right lateral hip region, that extended all the way to the toes of the right foot. She still has numbness of the right leg. Regarding balance, patient states it is "okay". No previous history of optic neuritis. She does have some urgency, frequency and slight incontinence of urine at times. No bowel issues. Vital signs on arrival blood pressure 122/74, pulse is 73 temperature 97.7. Blood test shows normal CBC, CMP, ESR is 9, CRP <0.5. CT head showed nonspecific white matter changes within the right posterior parietal region, consider further evaluation with MRI as clinically warranted. Similar to 03/13/2023. Findings could represent demyelination. Patient had a CTA of head and neck performed 03/13/2023 for dizziness, disorientation, which revealed no evidence of dissection of the cervical internal carotid arteries or vertebral arteries or any evidence of significant stenosis at the carotid bifurcations. No evidence of high-grade stenosis or intracranial aneurysm. Patient denies any tobacco use or alcohol. She does Vape. Denies any diabetes or hypertension. No family history of MS. Review of Systems Constitutional: Denies chills, Denies fever Eyes: left blurred vision, left pain, left loss of vision, denies diplopia Ears: deny: decreased hearing, ear discharge Ears, nose, mouth and throat: Reports headache, Denies sore throat Cardiovascular: Denies chest pain, Denies shortness of breath Respiratory: Denies cough, Denies excessive sputum Gastrointestinal: Denies abdominal pain, Denies diarrhea, Denies nausea, Denies vomiting Genitourinary: Reports stress incontinence, Reports urgency, Reports urinary frequency, Denies dysuria, Denies hematuria Musculoskeletal: Denies myalgias, Denies neck pain Integumentary: Denies pruritus, Denies rash Neurological: Reports as per HPI Psychiatric: Denies anxiety, Denies depression Hematologic/Lymphatic: Denies easy bleeding, Denies easy bruising Past Medical History Past Medical History: Osteoarthritis (OA) Additional Past Medical History / Comment(s): Kidney stones History of Any Multi-Drug Resistant Organisms: None Reported Past Surgical History: Section, Tonsillectomy Additional Past Surgical History / Comment(s): lithotripsy Past Anesthesia/Blood Transfusion Reactions: No Reported Reaction Past Psychological History: Anxiety Smoking Status: Former smoker, Vaper Past Alcohol Use History: Rare Past Drug Use History: Marijuana - Past Family History Mother Family Medical History: Cancer, Hypertension Father Family Medical History: Hypertension Medications and Allergies Home Medications Medication Instructions Recorded Confirmed Type Metoclopramide [Reglan] 10 mg PO Q6H PRN #20 tab 03/13/23 04/14/23 Rx Ibuprofen [Motrin] 800 mg PO TID PRN 04/14/23 04/14/23 History Meclizine [Antivert] 25 mg PO TID PRN 04/14/23 04/14/23 History Allergies Allergy/AdvReac Type Severity Reaction Status Date / Time shellfish derived [Shellfish] Allergy Rash/Hives Verified 04/14/23 11:04 latex AdvReac Rash/Hives Verified 04/14/23 11:04 Physical Examination - Vital Signs Vital Signs: Vital Signs Temp Pulse Pulse Resp BP BP Pulse Ox 04/14/23 08:00 14 04/14/23 06:55 98.9 F 69 14 130/87 95 04/14/23 02:24 63 16 109/63 97 04/13/23 18:58 97.7 F 73 20 122/74 100 Intake and Output 04/13/23 04/14/23 04/14/23 22:59 06:59 14:59 Intake Total 590 Balance 590 Intake: Oral 590 Other: # Voids 2 Weight 108.862 kg 108.862 kg Patient is a middle aged female, very pleasant, in no acute distress. Patient is alert awake oriented to time place and person. Speech and language functions are normal. Patient can name and repeat very well. No aphasia or dysarthria. Attention, concentration and fund of knowledge is adequate. On cranial nerve examination, pupils are equal, round and reacting to light. Patient has left APD. Patient's vision is normal in the right eye, but she is almost blind in the left eye, with only handwaving. Visual cleary are full on confrontation in the right eye. Extraocular muscles are intact with no nystagmus. Face is symmetric, tongue protrudes to the midline. Palatal elevation and sensation normal, hearing and shoulder shrug normal, facial sensation normal. On muscle strength testing, there is slight right drift, but no pronation. Her strength is normal in the arms distally and proximally. In the lower limbs (right/left) hip flexion 5-/5, ankle dorsiflexion 5-/5, knee extension 5/5. Deep tendon reflexes are (right/left) biceps 1+/1+, brachioradialis 1/1, knees 2/3, ankle 3/2 and plantar is flat on the right, upgoing on the left. Sensory to touch is slightly decreased in the right arm and right leg as compared to the left side. Cerebellar function showed tremulousness for [id number] testing on the right but not on the left. [id number] testing was also tremulous on the right. Tone and bulk of muscles normal. Gait: Patient's routine gait appears normal, but has difficulty with walking on her heels especially with the right leg would not move forward. She was able to walk on her toes and tandem. Romberg patient slightly swayed, but otherwise negative. On general examination, there is no carotid bruit or murmur, S1-S2 audible. Chest is clear on consultation. Abdomen is soft nontender. No organomegaly, bowel sounds present. Peripheral pulses are present. No edema. Results - Laboratory Findings CBC and BMP: 04/13/23 21:45 04/13/23 21:45 Abnormal Lab Findings: Abnormal Labs 04/13/23 21:45 Carbon Dioxide 21 L Assessment and Plan Assessment: * Acute optic neuritis left eye, with near complete vision loss * Patient has 3 other isolated focal neurological symptoms, as mentioned above in detail, since October 2022, which suggests dissemination of demyelination in time. MRI of the brain and orbits revealed abnormal enhancement of the left optic nerve as well as multiple other nonenhancing white matter lesions, suggestive of dissemination in space. All these findings are consistent with a diagnosis of relapsing remitting multiple sclerosis. Plan: * Patient has been started on Solu-Medrol 1 g IV PB daily since yesterday, 04/13/2023. This will be continued for a total of 5 days. Patient may need oral tapering dose of prednisone after completion of 5 day IV treatment. * As a diagnosis is fairly clear, there is no need for lumbar puncture to look for oligoclonal bands. * We will check MRI of the cervical spine and thoracic spine with and without contrast to evaluate for other areas of demyelination. * We will perform detailed blood tests to rule out any mimickers of MS. * Discussed in detail with patient, and multiple family members present in the room. * Neurology will follow. Thank you for the consult.
[2023-04-15 09:17] LABS: Basophils # (A) 0.01 X 10*3/uL (0.00-0.10); Basophils % (A) 0.1 %; Eosinophils # (A) 0 X 10*3/uL (0.04-0.35); Eosinophils % (A) 0 %; HCT 40.4 % (37.2-46.3); HGB 13.3 g/dL (12.0-15.0); Immature Grans, Automated 0.6 %; Lymphocytes # (A) 0.84 X 10*3/uL (0.90-5.00); Lymphocytes % (A) 6.5 %; MCHC 32.9 g/dL (32.0-37.0); MCV 94.2 fL (80.0-97.0); Mean Platelet Volume 11.8 fL (9.5-12.2); Monocytes % (A) 0.8 %; NRBC Per 100 WBC 0 /100 WBCS (0.0-0.0); Neutrophils # (A) 11.83 X 10*3/uL (1.80-7.70); Platelet Count 221 X 10*3/uL (140-440); RBC 4.29 X 10*6/uL (4.10-5.20); RDW 12.3 % (11.5-14.5); WBC 12.86 X 10*3/uL (4.50-10.00)
[2023-04-15 10:44] LABS: Anion Gap 12.1 mmol/L (10.00-18.00); BUN/Creat Ratio 23.44 Ratio (12.00-20.00); Blood Urea Nitrogen 17.3 mg/dL (9.0-27.0); Calcium 9.4 mg/dL (8.7-10.3); Carbon Dioxide 18.5 mmol/L (20.0-27.5)
[2023-04-15] MEDS: ACETAMINOPHEN TAB 325 MG TAB PO PRN (12:51)
[2023-04-15 14:10] LABS: T4, Free (Free Thyroxine) 1.55 ng/dL (0.78-2.19)
[2023-04-15] MEDS ORDERED: ERGOCALCIFEROL 1,250 MCG (50,000 IU) CAPSULE PO SCH (16:45)
[2023-04-15] MEDS: BUTALB/APAP/CAFF 50-325-40MG TAB PO PRN (17:36)
[2023-04-15] MEDS: MELATONIN 3 MG TABLET PO PRN (22:09)
[2023-04-15] MEDS: LORazepam 0.5 MG TAB PO PRN (22:09)
[2023-04-15] MEDS: methylPREDNISolone SOD SUCCIN 1,000 MG in SODIUM CHLORIDE 0.9% 250 ML IVPB SCH (22:10)
--- NOTE | 2023-04-16 02:06 | P.PN ---
Subjective Progress Note Date: 04/15/23 Patient was seen for a follow-up. Patient states that she is feeling better. She can see with her left eye a bit more with steroids. Still numbness in the right leg. She had a headache involving left orbital region from optic neuritis. Patient says that she does have have headaches every day. She drinks from 1 cup to half a pot of coffee per day. She may be withdrawing from caffeine. Tylenol sometimes helps. Objective - Vital Signs Vital signs: Vital Signs Temp 98.9 F 04/15/23 14:28 Pulse 71 04/15/23 14:28 Resp 16 04/15/23 14:28 BP 122/76 04/15/23 14:28 Pulse Ox 97 04/15/23 14:28 FiO2 Intake & Output 04/14/23 04/15/23 04/15/23 18:59 06:59 18:59 Intake Total 1200 850 Balance 1200 850 Intake: Intake, IV Titration 250 Amount methylPREDNISolone SOD 250 SUCCIN 1,000 mg In Sodium Chloride 0.9% 250 ml @ 250 mls/hr IVPB DAILY@ 2200 [facility] Rx#:[id number] Oral 1200 600 Other: # Voids 3 3 - Exam Patient's mentation is normal. Examination unchanged. - Labs CBC & Chem 7: 04/15/23 06:01 04/15/23 06:01 Labs: Abnormal Lab Results - Last 24 Hours (Table) 04/14/23 04/14/23 04/15/23 Range/Units 16:51 18:23 06:01 WBC 12.86 H (4.50-10.00) X 10*3/uL Immature Gran # 0.08 H (0.00-0.04) X 10*3/uL Neutrophils # 11.83 H (1.80-7.70) X 10*3/uL Lymphocytes # 0.84 L (0.90-5.00) X 10*3/uL Monocytes # 0.10 L (0.20-1.00) X 10*3/uL Eosinophils # 0 L (0.04-0.35) X 10*3/uL Carbon Dioxide (20.0-27.5) mmol/L BUN/Creatinine Ratio (12.00-20.00) Ratio Glucose (70-110) mg/dL Vitamin B12 974.0 H (200.0-944.0) pg/mL Vitamin D 25-Hydroxy 15.9 L (30.0-100.0) ng/mL TSH 0.317 L (0.465-4.680) mIU/L 04/15/23 Range/Units 06:01 WBC (4.50-10.00) X 10*3/uL Immature Gran # (0.00-0.04) X 10*3/uL Neutrophils # (1.80-7.70) X 10*3/uL Lymphocytes # (0.90-5.00) X 10*3/uL Monocytes # (0.20-1.00) X 10*3/uL Eosinophils # (0.04-0.35) X 10*3/uL Carbon Dioxide 18.5 L (20.0-27.5) mmol/L BUN/Creatinine Ratio 23.44 H (12.00-20.00) Ratio Glucose 168 H (70-110) mg/dL Vitamin B12 (200.0-944.0) pg/mL Vitamin D 25-Hydroxy (30.0-100.0) ng/mL TSH (0.465-4.680) mIU/L Assessment and Plan Assessment: * Acute optic neuritis left eye, with near complete vision loss * Patient has 3 other isolated focal neurological symptoms, as mentioned above in detail, since October 2022, which suggests dissemination of demyelination in time. MRI of the brain and orbits revealed abnormal enhancement of the left optic nerve as well as multiple other nonenhancing white matter lesions, suggestive of dissemination in space. All these findings are consistent with a diagnosis of relapsing remitting multiple sclerosis. Plan: * Patient has been started on Solu-Medrol 1 g IV PB daily since yesterday, 04/13/2023. This will be continued for a total of 5 days. Today is day #3. Patient may need oral tapering dose of prednisone after completion of 5 day IV treatment. * As a diagnosis is fairly clear, there is no need for lumbar puncture to look for oligoclonal bands. * Await MRI of the cervical spine and thoracic spine with and without contrast to evaluate for other areas of demyelination. * Patient's blood tests so far showing B12 974, folate 10.3, vitamin D is now 15.9, TSH is slightly decreased 0.317, with free T4 1.55, hemoglobin A1c 5.2. Sjogren's antibody, MMA, Lyme titer, KAIDEN and angiotensin converting enzyme level pending. We will start vitamin D 50,000 unit weekly. * Patient is interested in getting a [facility] opinion [facility] (as an [facility]). I encouraged her and agree for second opinion. * Dr. Karsten Chiang to resume neurology service in the morning.
[2023-04-16] MEDS: ACETAMINOPHEN TAB 325 MG TAB PO PRN (06:44)
[2023-04-16] MEDS: ENOXAPARIN 40 MG/0.4 ML SYRINGE SQ SCH (07:09)
[2023-04-16] MEDS: BUTALB/APAP/CAFF 50-325-40MG TAB PO PRN (08:17)
--- NOTE | 2023-04-16 14:22 | P.PN ---
Subjective Progress Note Date: 04/16/23 I'm seeing the patient for the first time during this hospital admission. Please refer to Dr. Robledo's notes for further details. Patient states the she presented because of the blurry vision over the left eye as well as having numbness over the right leg and some weakness in the right leg. She feels her symptoms slightly improving. Today is day 4 out of 5 of IV steroids. She has not seen a neurologist as an outpatient since that she did not know the what her symptoms were due to and it was the seeing her primary care physician. Objective - Vital Signs Vital signs: Vital Signs Temp 97.4 F L 04/16/23 06:58 Pulse 102 H 04/16/23 06:58 Resp 20 04/16/23 06:58 BP 154/77 04/16/23 06:58 Pulse Ox 99 04/16/23 06:58 FiO2 Intake & Output 04/15/23 04/16/23 04/16/23 18:59 06:59 18:59 Intake Total 1200 500 Balance 1200 500 Intake: Oral 1200 500 Other: # Voids 4 3 - Exam GENERAL: The patient is lying in bed and is not in acute distress. NEUROLOGICAL: Higher mental function: The patient is awake, alert, oriented to self, place and time. Patient is following commands. No aphasia and no neglect. Cranial nerves: The pupils are round, equal and reactive to light and accommodation. Has left APD. Visual cleary is blurry vision on left eye but is able to seem object near close while right eye is full to confrontation. Extraocular movement is intact no nystagmus is noted. F The facial strength is normal throughout. Tongue is midline and moved [id number] without any difficulty. No dysarthria is noted. Shoulder shrug is normal bilaterally. Motor: The strength is right thigh is 4+ to 5-. Otherwise 5 over 5 throughout. Normal tone and bulk. Cerebellum: Normal finger to nose bilaterally. Sensation: Sensation is decrease to touch over the right lower. Otherwise normal to touch throughout. - Labs CBC & Chem 7: 04/15/23 06:01 04/15/23 06:01 Assessment and Plan Assessment: Acute optic neuritis left eye, with near complete vision loss * Patient has 3 other isolated focal neurological symptoms, as mentioned above in detail, since October 2022, which suggests dissemination of demyelination in time. MRI of the brain and orbits revealed abnormal enhancement of the left optic nerve as well as multiple other nonenhancing white matter lesions, suggestive of dissemination in space. All these findings are consistent with a diagnosis of relapsing remitting multiple sclerosis. Plan: * Patient has been started on Solu-Medrol 1 g IV PB daily since 04/13/2023. This will be continued for a total of 5 days. Today is day #4. Per Dr. Robledo, patient may need oral tapering dose of prednisone after completion of 5 day IV treatment. * As a diagnosis is fairly clear, there is no need for lumbar puncture to look for oligoclonal bands per Dr. Robledo and I agree with that. * Await MRI of the cervical spine and thoracic spine with and without contrast to evaluate for other areas of demyelination. * Patient's blood tests so far showing B12 974, folate 10.3, vitamin D is now 15.9, TSH is slightly decreased 0.317, with free T4 1.55, hemoglobin A1c 5.2. Sjogren's antibody, MMA, Lyme titer, KAIDEN and angiotensin converting enzyme level pending. Continue vitamin D 50,000 unit weekly. * Patient is interested in getting a second opinion at [facility] (as an outpatient). I gave her a referral script. The plan is discussed with patient and her nurse. Time with Patient: Less than 30
--- NOTE | 2023-04-16 15:28 | MR ---
EXAMINATION TYPE: MR khan/mark wo/w con DATE OF EXAM: 04/16/2023 1:36 PM COMPARISON: NONE HISTORY: Acute visual loss left eye, optic neuritis, evaluate for MS. CONTRAST: The patient was injected with 10 mL intravenous Gadavist gadolinium contrast. Multiplanar MultiSpin echo imaging of the cervical spine was performed. C2-C3: No evidence for degenerative disc disease. No disc bulge/herniation or protrusion. No Canal stenosis. Foramina are patent bilaterally. C3-C4: No evidence for degenerative disc disease. No disc bulge/herniation or protrusion. No Canal stenosis. Foramina are patent bilaterally. C4-C5: Mild decreased signal and loss of height compatible with mild degenerative disc disease. Mild posterocentral disc bulge without herniation or protrusion. No Canal stenosis. Foramina are patent b ilaterally. C5-C6: Mild decreased signal and loss of height compatible with mild degenerative disc disease. Mild posterocentral disc bulge without herniation or protrusion. No Canal stenosis. Foramina are patent b ilaterally. C6-C7:No evidence for degenerative disc disease. No disc bulge/herniation or protrusion. No Canal s tenosis. Foramina are patent bilaterally. C7-T1: No evidence for degenerative disc disease. No disc bulge/herniation or protrusion. No Canal stenosis. Foramina are patent bilaterally. No cervical spine fracture. There is normal alignment. Cervical spinal cord is of normal signal. C raniovertebral junction relationships are within normal limits. No pathologic enhancement. IMPRESSION: 1. Mild disc bulge at C4-5 C5-6. 2. No cervical spinal cord lesions are seen. No enhancing lesions noted. EXAMINATION TYPE: MR tidwell wo/w con DATE OF EXAM: 04/16/2023 1:36 PM COMPARISON: NONE HISTORY: Acute visual loss left eye, optic neuritis, evaluate for MS. Multiplanar MultiSpin echo imaging of the thoracic spine was performed. Pre and postcontrast enhance d images are submitted. Disc spaces: Mild decreased signal loss of height at T7-8 with mild posterior disc bulge and minimal effacement ventral thecal sac. The remaining levels are felt to be within normal limits. No disc ramiro iation or central stenosis. Mild ventral spondylosis identified. Spinal canal: No evidence for canal stenosis. No intrinsic or extrinsic lesion. Thoracic spinal cord: Thoracic spinal cord is of normal caliber and signal. Paraspinal soft tissues: No evidence for paraspinal mass. No destructive lesions seen. Vertebral segments: No evidence for fracture or bony lesion. IMPRESSION: 1. No areas of abnormal signal within the thoracic spinal cord or areas of pathologic enhancement. 2. Degenerative disc disease and disc bulging at T7-T8 3. Diminutive partially imaged left kidney and compensatory hypertrophy of a partially imaged right k idney.
--- NOTE | 2023-04-16 16:46 | P.PN ---
Progress Note - Text Progress Note Date: 04/15/23 Chief Complaint: Loss of vision left eye This is a very pleasant 42-year-old patient who follows with Dr. Coyne. Chronic stable medical conditions include kidney stones, urinary incontinence, GERD, anxiety. Patient is accompanied by her mother and aunt at the bedside. About 5 days ago patient is developed pain in the left eye. Started getting a bit blurry. went to see Dr. Dr. Coyne. He then referred her to Dr. Hudson supervisor riveting. Patient with diagnosed diabetic retrobulbar optic neuritis and send out of the ER. Patient for last 10 days also noticed some numbness in the right leg. No trouble walking. About a month ago patient had an episode of vertigo was having some trouble with his speech stent. Also has been feeling some heaviness in the left arm. Patient is chronically incontinent. No headache. Started on steroids in the ER. April 15: No new symptoms. Still poor vision through left eye. IV methylprednisolone. MRI of the brain and orbit results noted. Ambulatory. Current medications reviewed Past medical history to include: Kidney stones, urinary incontinence, GERD, anxiety Social history: Patient lives with her 2 children ages 14 and 17. 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 Physical examination: VITAL SIGNS: 98.9, 65, 16, 124/71, 97% room air GENERAL: BMI 43.9, comfortable. EYES: Pupils equal. Conjunctiva normal. HEENT: External appearance of nose and ears normal, oral cavity grossly normal. NECK: JVD not raised; masses not palpable. HEART: First and second heart sounds are normal; no edema. LUNGS: Respiratory rate normal; clear to auscultation. ABDOMEN: Soft, nontender, liver spleen not palpable, no masses palpable. PSYCH: Alert and oriented x3; mood and affect normal. MUSCULOSKELETAL:No Clubbing/cyanosis;muscles-grossly intact NEUROLOGICAL: Cranial nerves grossly intact; no facial asymmetry, power and sensation grossly intact. Vision through the left eye blurry. INVESTIGATIONS, reviewed in the clinical context: MRI brain orbit with and without contrast: Mild a visiting white matter changes present the basis of known MS. No abnormal enhancing lesions evident. Left optic nerve consistent active optic neuritis. Vitamin B12 974 vitamin D 15.9 TSH 0.3 free T4 1 0.55 White count 9.1 hemoglobin 14.6 platelets 238 sodium 137 potassium 3.9 creatinine 0.66 CRP less than 0.5 CT brain:White matter changes within the right posterior parietal region, sim r to March 13. Brain orbit MRI. Mild nonspecific white matter changes present in the bases of abnormal enhancing lesions evident. Abnormal enhancement of the left optic nerve. Consistent no active optic neuritis. Assessment plan: -Acute left eye optic neuritis, probable underlying diagnoses of multiple sclerosis. IV methylprednisolone-thousand milligrams daily, started on Sunday -GERD Pepcid when necessary -Chronic urine incontinence -Morbid obesity BMI 43.9 Weight loss measures -Hypothyroid ruled out -Anxiety not otherwise specified Xanax when necessary Continue with steroids. Follow with neurology.
--- NOTE | 2023-04-16 16:48 | P.PN ---
Progress Note - Text Progress Note Date: 04/16/23 Chief Complaint: Loss of vision left eye This is a very pleasant 42-year-old patient who follows with Dr. Coyne. Chronic stable medical conditions include kidney stones, urinary incontinence, GERD, anxiety. Patient is accompanied by her mother and aunt at the bedside. About 5 days ago patient is developed pain in the left eye. Started getting a bit blurry. went to see Dr. Dr. Coyne. He then referred her to Dr. Hudson band manager. Patient with diagnosed diabetic retrobulbar optic neuritis and send out of the ER. Patient for last 10 days also noticed some numbness in the right leg. No trouble walking. About a month ago patient had an episode of vertigo was having some trouble with his speech stent. Also has been feeling some heaviness in the left arm. Patient is chronically incontinent. No headache. Started on steroids in the ER. April 15: No new symptoms. Still poor vision through left eye. IV methylprednisolone. MRI of the brain and orbit results noted. Ambulatory. April 16: Very slight improvement in the left eye vision. Still hazy. IV steroids. Thoracocervical spine: No spinal neck suspicious for MS. Some disc bulging at T7-T8. Current medications reviewed Past medical history to include: Kidney stones, urinary incontinence, GERD, anxiety Social history: Patient lives with her 2 children ages 14 and 17. 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 Physical examination: VITAL SIGNS: 98.9, 65, 16, 124/71, 97% room air GENERAL: BMI 43.9, comfortable. EYES: Pupils equal. Conjunctiva normal. HEENT: External appearance of nose and ears normal, oral cavity grossly normal. NECK: JVD not raised; masses not palpable. HEART: First and second heart sounds are normal; no edema. LUNGS: Respiratory rate normal; clear to auscultation. ABDOMEN: Soft, nontender, liver spleen not palpable, no masses palpable. PSYCH: Alert and oriented x3; mood and affect normal. MUSCULOSKELETAL:No Clubbing/cyanosis;muscles-grossly intact NEUROLOGICAL: Cranial nerves grossly intact; no facial asymmetry, power and sensation grossly intact. Vision through the left eye blurry. INVESTIGATIONS, reviewed in the clinical context: MRI brain orbit with and without contrast: Mild a visiting white matter changes present the basis of known MS. No abnormal enhancing lesions evident. Left optic nerve consistent active optic neuritis. Vitamin B12 974 vitamin D 15.9 TSH 0.3 free T4 1 0.55 White count 9.1 hemoglobin 14.6 platelets 238 sodium 137 potassium 3.9 creatinine 0.66 CRP less than 0.5 CT brain:White matter changes within the right posterior parietal region, similar to March 13. Brain orbit MRI. Mild nonspecific white matter changes present in the bases of abnormal enhancing lesions evident. Abnormal enhancement of the left optic nerve. Consistent no active optic neuritis. Assessment plan: -Acute left eye optic neuritis, probable underlying diagnoses of multiple sclerosis. IV methylprednisolone-thousand milligrams daily, started on Sunday -GERD Pepcid when necessary -Chronic urine incontinence -Morbid obesity BMI 43.9 Weight loss measures -Hypothyroid ruled out -Anxiety not otherwise specified Xanax when necessary Continue with steroids. Follow with neurology. MRI results noted.
[2023-04-16] MEDS: methylPREDNISolone SOD SUCCIN 1,000 MG in SODIUM CHLORIDE 0.9% 250 ML IVPB SCH (21:08)
[2023-04-16] MEDS: LORazepam 0.5 MG TAB PO PRN (22:15)
[2023-04-16] MEDS: MELATONIN 3 MG TABLET PO PRN (22:15)
[2023-04-17] MEDS: ENOXAPARIN 40 MG/0.4 ML SYRINGE SQ SCH (08:40)
--- NOTE | 2023-04-17 14:19 | P.PN ---
Subjective Progress Note Date: 04/17/23 Patient seen at bedside and today and she feels minimal improvement in the left eye but has not noticed any drastic improvement in the right lower extremity. Otherwise denies of any neurological issues. Today is day 5 of IV Solu-Medrol Objective - Vital Signs Vital signs: Vital Signs Temp 98.3 F 04/17/23 12:09 Pulse 91 04/17/23 12:09 Resp 18 04/17/23 12:09 BP 128/83 04/17/23 12:09 Pulse Ox 97 04/17/23 12:09 FiO2 Intake & Output 04/16/23 04/17/23 04/17/23 18:59 06:59 18:59 Intake Total 400 Balance 400 Intake: Oral 400 Other: Voiding Method Toilet # Voids 3 - Exam GENERAL: The patient is lying in bed and is not in acute distress. NEUROLOGICAL: Higher mental function: The patient is awake, alert, oriented to self, place and time. Patient is following commands. No aphasia and no neglect. Cranial nerves: The pupils are round, equal and reactive to light and accommodation. Has left APD. Visual cleary is blurry vision on left eye but is able to seem object near close while right eye is full to confrontation. Extraocular movement is intact no nystagmus is noted. F The facial strength is normal throughout. Tongue is midline and moved [id number] without any difficulty. No dysarthria is noted. Shoulder shrug is normal bilaterally. Motor: The strength is right thigh is 4+ to 5-. Otherwise 5 over 5 throughout. Normal tone and bulk. Cerebellum: Normal finger to nose bilaterally. Sensation: Sensation is decrease to touch over the right lower. Otherwise normal to touch throughout. - Labs CBC & Chem 7: 04/15/23 06:01 04/15/23 06:01 Assessment and Plan Assessment: Acute optic neuritis left eye, with near complete vision loss * Patient has 3 other isolated focal neurological symptoms, as mentioned above in detail, since October 2022, which suggests dissemination of demyelination in time. MRI of the brain and orbits revealed abnormal enhancement of the left optic nerve as well as multiple other nonenhancing white matter lesions, suggestive of dissemination in space. All these findings are consistent with a diagnosis of relapsing remitting multiple sclerosis. Plan: * Patient has been started on Solu-Medrol 1 g IV PB daily since 04/13/2023. This will be continued for a total of 5 days. Today is day #5. Per Dr. Robledo, patient may need oral tapering dose of prednisone after completion of 5 day IV treatment. * As a diagnosis is fairly clear, there is no need for lumbar puncture to look for oligoclonal bands per Dr. Robledo and I agree with that. * MRI of the cervical spine w/ and w/o: Reported as mild disc bulge at C5-C6 and C5-C6. No cervical spinal cord lesion are seen. No enhancing lesion noted. * MRI thoracic spine with and without contrast: It is reported as no area of abnormal signal with in the thoracic spine cord or area of pathological enhan cement. Degenerative disc disease and disc bulging at T7 and T8. D * Patient's blood tests so far showing B12 974, folate 10.3, vitamin D is now 15.9, TSH is slightly decreased 0.317, with free T4 1.55, hemoglobin A1c 5.2. Sjogren's antibody: negative, MMA: Normal, Lyme titer: negative, KAIDEN and an giotensin converting enzyme level: negative: 21 . Continue vitamin D 50,000 unit weekly. * Patient is interested in getting a second opinion at [facility] (as an outpatient). I gave her a referral script. The plan is discussed with patient and primary team. Otherwise no additional neurological work-up. Time with Patient: Less than 30
[2023-04-17] MEDS: methylPREDNISolone SOD SUCCIN 1,000 MG in SODIUM CHLORIDE 0.9% 250 ML IVPB SCH (18:51)
[2023-04-17 19:09] VITALS: BP 123/85; PULSE 78; RESP 16; TEMP 98.6
--- NOTE | 2023-04-17 20:24 | P.DS ---
Providers Date of admission: 04/14/23 00:06 Expected date of discharge: 04/17/23 Attending physician: Joshua Robertson Consults: 04/14/23 00:05 Consult Physician Urgent Consulting Provider: Lei Robledo Consult Reason/Comments: Acute visual loss left eye, optic neuritis, suspected MS Do you want consulting provider notified?: Already Contacted Primary care physician: Henry Coyne [facility] Course: Chief Complaint: Loss of vision left eye This is a very pleasant 42-year-old patient who follows with Dr. Coyne. Chronic stable medical conditions include kidney stones, urinary incontinence, GERD, anxiety. Patient is accompanied by her mother and aunt at the bedside. About 5 days ago patient is developed pain in the left eye. Started getting a bit blurry. went to see Dr. Dr. Coyne. He then referred her to Dr. Hudson tableau administrator. Patient with diagnosed diabetic retrobulbar optic neuritis and send out of the ER. Patient for last 10 days also noticed some numbness in the right leg. No trouble walking. About a month ago patient had an episode of vertigo was having some trouble with his speech stent. Also has been feeling some heaviness in the left arm. Patient is chronically incontinent. No headache. Started on steroids in the ER. April 15: No new symptoms. Still poor vision through left eye. IV methylprednisolone. MRI of the brain and orbit results noted. Ambulatory. April 16: Very slight improvement in the left eye vision. Still hazy. IV steroids. Thoracocervical spine: No spinal neck suspicious for MS. Some disc bulging at T7-T8. April 17: Very minimal improvement in the left eye vision. Other neuro findings unchanged. Patient today would've completed 5 days of IV steroids. Sending home prednisone taper. Patient wishes to follow-up with neurology and he knows to [place]. Discussed with neurology. Past medical history to include: Kidney stones, urinary incontinence, GERD, anxiety Social history: Patient lives with her 2 children ages 14 and 17. 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 Physical examination: VITAL SIGNS: 98.3, 91, 18, 120/83, 97% room air GENERAL: BMI 43.9, comfortable. EYES: Pupils equal. Conjunctiva normal. HEENT: External appearance of nose and ears normal, oral cavity grossly normal. NECK: JVD not raised; masses not palpable. HEART: First and second heart sounds are normal; no edema. LUNGS: Respiratory rate normal; clear to auscultation. ABDOMEN: Soft, nontender, liver spleen not palpable, no masses palpable. PSYCH: Alert and oriented x3; mood and affect normal. MUSCULOSKELETAL:No Clubbing/cyanosis;muscles-grossly intact NEUROLOGICAL: Cranial nerves grossly intact; no facial asymmetry, power and sensation grossly intact. Vision through the left eye blurry. INVESTIGATIONS, reviewed in the clinical context: MRI brain orbit with and without contrast: Mild a visiting white matter changes present the basis of known MS. No abnormal enhancing lesions evident. Left optic nerve consistent active optic neuritis. Vitamin B12 974 vitamin D 15.9 TSH 0.3 free T4 1 0.55 White count 9.1 hemoglobin 14.6 platelets 238 sodium 137 potassium 3.9 creatinine 0.66 CRP less than 0.5 CT brain:White matter changes within the right posterior parietal region, similar to March 13. Brain orbit MRI. Mild nonspecific white matter changes present in the bases of abnormal enhancing lesions evident. Abnormal enhancement of the left optic nerve. Consistent no active optic neuritis. Assessment plan: -Acute left eye optic neuritis, probable underlying diagnoses of multiple sclerosis. IV methylprednisolone-thousand milligrams daily, given her 5 days. Being discharged on prednisone taper. Patient will follow-up with urology at any [facility] to [place]. -GERD Pepcid when necessary -Chronic urine incontinence -Morbid obesity BMI 43.9 Weight loss measures -Hypothyroid ruled out -Anxiety not otherwise specified Xanax when necessary Disposition: Home Plan - Discharge Summary Discharge Rx Participant: No New Discharge Prescriptions: New Ergocalciferol [Vitamin D2 (1250 Mcg = 87451 Iu)] 1,250 mcg PO Q7D #10 cap Acetaminophen Tab [Tylenol] 650 mg PO Q6HR PRN tab PRN Reason: Mild Pain Or Fever > 100.5 predniSONE 10 mg PO DAILY #30 tab Continue Ibuprofen [Motrin] 800 mg PO TID PRN PRN Reason: Pain Discontinued Meclizine [Antivert] 25 mg PO TID PRN PRN Reason: Vertigo Metoclopramide [Reglan] 10 mg PO Q6H PRN #20 tab PRN Reason: Nausea And Vomiting Discharge Medication List Ibuprofen [Motrin] 800 mg PO TID PRN 04/14/23 [History] Acetaminophen Tab [Tylenol] 650 mg PO Q6HR PRN tab 04/17/23 [Rx] Ergocalciferol [Vitamin D2 (1250 Mcg = 04073 Iu)] 1,250 mcg PO Q7D #10 cap 04/17/23 [Rx] predniSONE 10 mg PO DAILY #30 tab 04/17/23 [Rx] Follow up Appointment(s)/Referral(s): Neurology, [Other] - 1 Week Henry Coyne MD [Primary Care Provider] - 1-2 days Discharge/Stand Alone Forms: Who Do I Call?, Community Resources, Outpatient Counseling
== END 2023-04-17 20:25 | disposition home or self-care (01) | DRG 43 ==
LOC: EC 18:57 → 5NMEDONC 04-14 00:06
PROVIDERS: ADMIT Hospitalist; ATTEND Hospitalist
DX: G35 Multiple sclerosis (principal); E66.01 Morbid (severe) obesity due to excess calories; Z68.41 Body mass index [BMI] 40.0-44.9, adult; Z71.3 Dietary counseling and surveillance; H46.9 Unspecified optic neuritis; F41.9 Anxiety disorder, unspecified; R32 Unspecified urinary incontinence; M51.24 Other intervertebral disc displacement, thoracic region; F17.290 Nicotine dependence, other tobacco product, uncomplicated; K21.9 Gastro-esophageal reflux disease without esophagitis; Z87.442 Personal history of urinary calculi; Z91.040 Latex allergy status; Z91.013 Allergy to seafood
CPT/HCPCS: 36415; 70450; 70543; 70553; 72156; 72157; 80048; 80053; 82164; 82306; 82607; 82746; 83036; 83921; 84439; 84443; 85025; 85652; 86038; 86140; 86235; 86618; 96365; 96366; 99285

== ENCOUNTER → 2023-06-01 | Outpatient (CLI) | payer OTHER | END | disposition home or self-care (01) | LOC: LABWHC1 13:22 | PROVIDERS: ATTEND Psychiatry & Neurology Neurology | DX: G35 Multiple sclerosis (principal); H46.9 Unspecified optic neuritis; D64.9 Anemia, unspecified; R53.82 Chronic fatigue, unspecified | CPT/HCPCS: 36415; 86480 ==

== ENCOUNTER 2023-11-07 18:55 | Emergency (ER) | payer OTHER ==
[2023-11-07 18:59] VITALS: RESP 18; TEMP 98.2
[2023-11-07] MEDS ORDERED: SODIUM CHLORIDE 0.9% 1,000 ML IV STA (19:21)
[2023-11-07] MEDS ORDERED: KETOROLAC 15 MG/ML 1 ML VIAL IVP STA (19:21)
[2023-11-07 20:14] LABS: Basophils # (A) 0.1 k/uL (0-0.2); Basophils % (A) 1 %; Eosinophils # (A) 0.2 k/uL (0-0.7); Eosinophils % (A) 2 %; HCT 39.3 % (34.0-46.0); HGB 13.5 gm/dL (11.4-16.0); Lymphocytes # (A) 3.5 k/uL (1.0-4.8); Lymphocytes % (A) 34 %; MCH 32.2 pg (25.0-35.0); MCHC 34.3 g/dL (31.0-37.0); Mean Platelet Volume 8.1; Monocytes # (A) 0.5 k/uL (0-1.0); Monocytes % (A) 5 %; Neutrophils # (A) 5.9 k/uL (1.3-7.7); Neutrophils % (A) 57 %; Platelet Count 213 k/uL (150-450); RBC 4.18 m/uL (3.80-5.40); RDW 13.7 % (11.5-15.5); WBC 10.2 k/uL (3.8-10.6)
[2023-11-07 20:27] LABS: ALT 16 U/L (4-34); AST 18 U/L (14-36); African American GFR (CKD) >90 (>60 ml/min/1.73 sqM); Alkaline Phosphatase 78 U/L (38-126); Amylase 68 U/L (30-110); Blood Urea Nitrogen 18 mg/dL (7-17); Carbon Dioxide 20 mmol/L (22-30); Glucose 100 mg/dL (74-99); Lipase 101 U/L (23-300); Non-African American GFR(CKD) >90 (>60 ml/min/1.73 sqM); Potassium 3.9 mmol/L (3.5-5.1); Sodium 139 mmol/L (137-145); Total Bilirubin 0.3 mg/dL (0.2-1.3); Total Protein 6.6 g/dL (6.3-8.2)
[2023-11-07 20:51] LABS: Anion Gap 11 mmol/L; Chloride 108 mmol/L (98-107)
[2023-11-07 21:20] LABS: Calcium Oxalate Crystals,Urine Occasional /hpf; Mucus,Urine Occasional /hpf; RBC,Urine 3 /hpf (0-5); Squamous Epithelial Cell,Urine 4 /hpf (0-4); WBC,Urine 1 /hpf (0-5)
[2023-11-07 21:24] LABS: Appearance,Urine Slightly Cloudy (Clear); Bilirubin,Urine Negative (Negative); Blood,Urine Trace (Negative); Color,Urine Dark Yellow; Glucose,Urine (UA) Negative (Negative); Ketones,Urine Negative (Negative); Nitrite,Urine Negative (Negative); Protein,Urine Negative (Negative); Urobilinogen,Urine <2.0 mg/dL (<2.0)
[2023-11-07 21:25] LABS: Leukocyte Esterase,Urine Negative (Negative)
--- NOTE | 2023-11-07 22:01 | ED ---
Abdominal Pain HPI - General Chief Complaint: Abdominal Pain Stated Complaint: abd pain Time Seen by Provider: 11/07/23 19:03 Source: patient Mode of arrival: ambulatory Limitations: no limitations - History of Present Illness Initial Comments: 43-year-old female presenting with chief complaint of abdominal pain. Patient states that she had sudden onset pain near the umbilicus and on the left side of the abdomen this evening. Pain was sharp in nature. Patient states that she felt like there was a lump in the area. No history of hernia. She states that symptoms started while she was eating. No other alleviating or aggravating factors. No fever, chills, nausea, vomiting, diarrhea, cough, congestion, sore throat, chest pain, difficulty breathing, dysuria, hematuria. - Related Data Home Medications Medication Instructions Recorded Confirmed Ibuprofen [Motrin] 800 mg PO TID PRN 04/14/23 11/07/23 Dextroamphetamine/Amphetamine 20 mg PO DAILY 11/07/23 11/07/23 [Adderall] Ergocalciferol [Vitamin D2 (1250 1,250 mcg PO GREER 11/07/23 11/07/23 Mcg = 95472 Iu)] Meloxicam [Mobic] 15 mg PO DAILY 11/07/23 11/07/23 Oxybutynin Chloride [oxyBUTYnin 15 mg PO DAILY 11/07/23 11/07/23 chloride ER] Pregabalin [Lyrica] 75 mg PO BID 11/07/23 11/07/23 traZODone HCL [Desyrel] 50 mg PO HS PRN 11/07/23 11/07/23 Allergies Allergy/AdvReac Type Severity Reaction Status Date / Time shellfish derived [Shellfish] Allergy Rash/Hives Verified 11/07/23 19:47 latex AdvReac Rash/Hives Verified 11/07/23 19:47 Review of Systems ROS Statement: Those systems with pertinent positive or pertinent negative responses have been documented in the HPI. ROS Other: All systems not noted in ROS Statement are negative. Past Medical History Past Medical History: Osteoarthritis (OA) Additional Past Medical History / Comment(s): Kidney stones History of Any Multi-Drug Resistant Organisms: None Reported Past Surgical History: Section, Tonsillectomy Additional Past Surgical History / Comment(s): lithotripsy Past Anesthesia/Blood Transfusion Reactions: No Reported Reaction Past Psychological History: Anxiety Smoking Status: Former smoker, Vaper Past Alcohol Use History: Rare Past Drug Use History: Marijuana - Past Family History Mother Family Medical History: Cancer, Hypertension Father Family Medical History: Hypertension General Exam Limitations: no limitations General appearance: alert, in no apparent distress Head exam: Present: atraumatic, normocephalic, normal inspection Eye exam: Present: normal appearance, EOMI Neck exam: Present: normal inspection Respiratory exam: Present: normal lung sounds bilaterally. Absent: respiratory distress, wheezes, rales, rhonchi, stridor Cardiovascular Exam: Present: regular rate, normal rhythm, normal heart sounds. Absent: systolic murmur, diastolic murmur, rubs, gallop, clicks GI/Abdominal exam: Present: soft. Absent: distended, tenderness, guarding, rebo und, rigid, hernia Extremities exam: Present: normal inspection Neurological exam: Present: alert, oriented X3 Psychiatric exam: Present: normal affect, normal mood Skin exam: Present: warm, dry, intact, normal color. Absent: rash Course Vital Signs 11/07/23 11/07/23 18:56 23:07 Temperature 98.2 F Pulse Rate 90 72 Respiratory 18 18 Rate Blood Pressure 134/78 128/62 O2 Sat by Pulse 100 99 Oximetry Medical Decision Making - Medical Decision Making Was pt. sent in by a medical professional or institution ([facility], [facility], urgent care, hospital, or fpc...) When possible be specific @ -No Did you speak to anyone other than the patient for history (EMS, parent, family, police, friend...)? What history was obtained from this source @ -No Did you review nursing and triage notes (agree or disagree)? Why? @ -I reviewed and agree with nursing and triage notes Were old charts reviewed (outside hosp., previous admission, EMS record, old EKG, old radiological studies, urgent care reports/EKG's, fpc records)? Report findings @ -No old charts were reviewed Differential Diagnosis (chest pain, altered mental status, abdominal pain women, abdominal pain men, vaginal bleeding, weakness, fever, dyspnea, syncope, headache, dizziness, GI bleed, back pain, seizure, CVA, palpatations, mental health, musculoskeletal)? @ -MDM Differential Abdominal Pain Women: Appendicitis, Cholecystitis, diverticulosis, ischemic bowel, pancreatitis, hepatitis, UTI, gastroenteritis, AAA, incarcerated hernia, bowel obstruction, constipation, inflammatory bowel, hepatitis, peptic ulcer disease, splenic infarction, perforated viscus, vulvitis, ovarian torsion, PID, kidney stone, placenta abruption... This is not meant to be an all-inclusive list EKG interpreted by me (3pts min.). @ -As above X-rays interpreted by me (1pt min.). @ -None done CT interpreted by me (1pt min.). @ -None done U/S interpreted by me (1pt. min.). @ -None done What testing was considered but not performed or refused? (CT, X-rays, U/S, labs)? Why? @ -None What meds were considered but not given or refused? Why? @ -None Did you discuss the management of the patient with other professionals (professionals i.e. , PA, ED[facility] GR[facility]ER, lab, RT, psych nurse, addiction social worker, laborer pullet farm, teacher, transportation security officer, case folder)? Give summary @ -No Was smoking cessation discussed for >3mins.? @ -No Was critical care preformed (if so, how long)? @ -No Were there social determinants of health that impacted care today? How? (Homelessness, low income, unemployed, alcoholism, drug addiction, transportation, low edu. Level, literacy, decrease access to med. care, retirement, rehab)? @ -No Was there de-escalation of care discussed even if they declined (Discuss DNR or withdrawal of care, Hospice)? DNR status @ -No What co-morbidities impacted this encounter? (DM, HTN, Smoking, COPD, CAD, Cancer, CVA, ARF, Chemo, Hep., AIDS, mental health diagnosis, sleep apnea, morbid obesity)? @ -None Was patient admitted / discharged? Hospital course, mention meds given and route , prescriptions, significant lab abnormalities, going to OR and other pertinent info. @ -43-year-old female presenting with chief complaint of abdominal pain. Patient is also concerned she may have felt a lump on her abdomen over the affected area. On physical examination there is no guarding or specific tenderness. I do not appreciate a hernia on palpation of the abdomen, when the patient is standing I do not see or palpate any hernia as well. Lab work shows no leukocytosis or anemia. BUN 18, patient is receiving IV fluids. Patient received IV Toradol for pain control. Urine shows no infectious process or bleeding. On reassessment patient reports significant improvement in her symptoms. She feels comfortable with discharge home and following up with PCP. She is educated on alarms symptoms that should prompt reevaluation. Follow-up with PCP. Report back to ER with any new or worsening symptoms. Discussed return parameters and answered all questions. Patient conveyed verbal understanding and agreed to the plan. I discussed this case in detail with my attending Dr. Cruz Undiagnosed new problem with uncertain prognosis? @ -No Drug Therapy requiring intensive monitoring for toxicity (Heparin, Nitro, Insulin, Cardizem)? @ -No Were any procedures done? @ -No Diagnosis/symptom? @ -Abdominal pain Acute, or Chronic, or Acute on Chronic? @ -Acute Uncomplicated (without systemic symptoms) or Complicated (systemic symptoms)? @ -Uncomplicated Side effects of treatment? @ -No Exacerbation, Progression, or Severe Exacerbation? @ -No Poses a threat to life or bodily function? How? (Chest pain, USA, DE, pneumonia, PE, COPD, DKA, ARF, appy, cholecystitis, CVA, Diverticulitis, Homicidal, Suicidal, threat to staff... and all critical care pts) @ -Low likelihood - Lab Data Result diagrams: 11/07/23 19:34 11/07/23 19:34 Lab Results 11/07/23 11/07/23 11/07/23 Range/Units 19:34 19:34 19:34 WBC 10.2 (3.8-10.6) k/uL RBC 4.18 (3.80-5.40) m/uL Hgb 13.5 (11.4-16.0) gm/dL Hct 39.3 (34.0-46.0) % MCV 94.0 (80.0-100.0) fL MCH 32.2 (25.0-35.0) pg MCHC 34.3 (31.0-37.0) g/dL RDW 13.7 (11.5-15.5) % Plt Count 213 (150-450) k/uL MPV 8.1 Neutrophils % 57 % Lymphocytes % 34 % Monocytes % 5 % Eosinophils % 2 % Basophils % 1 % Neutrophils # 5.9 (1.3-7.7) k/uL Lymphocytes # 3.5 (1.0-4.8) k/uL Monocytes # 0.5 (0-1.0) k/uL Eosinophils # 0.2 (0-0.7) k/uL Basophils # 0.1 (0-0.2) k/uL Sodium 139 (137-145) mmol/L Potassium 3.9 (3.5-5.1) mmol/L Chloride 108 H (98-107) mmol/L Carbon Dioxide 20 L (22-30) mmol/L Anion Gap 11 mmol/L BUN 18 H (7-17) mg/dL Creatinine 0.68 (0.52-1.04) mg/dL Est GFR (CKD-EPI)AfAm >90 (>60 ml/min/1.73 sqM) Est GFR (CKD-EPI)NonAf >90 (>60 ml/min/1.73 sqM) Glucose 100 H (74-99) mg/dL Plasma Lactic Acid Parveen (0.7-2.0) mmol/L Calcium 9.0 (8.4-10.2) mg/dL Total Bilirubin 0.3 (0.2-1.3) mg/dL AST 18 (14-36) U/L ALT 16 (4-34) U/L Alkaline Phosphatase 78 (38-126) U/L Total Protein 6.6 (6.3-8.2) g/dL Albumin 4.0 (3.5-5.0) g/dL Amylase 68 (30-110) U/L Lipase 101 (23-300) U/L Urine Color Dark Yellow Urine Appearance Slightly Cloudy H (Clear) Urine pH 6.0 (5.0-8.0) Ur Specific Goodrich 1.030 (1.001-1.035) Urine Protein Negative (Negative) Urine Glucose (UA) Negative (Negative) Urine Ketones Negative (Negative) Urine Blood Trace (Negative) Urine Nitrite Negative (Negative) Urine Bilirubin Negative (Negative) Urine Urobilinogen <2.0 (<2.0) mg/dL Ur Leukocyte Esterase Negative (Negative) Urine RBC 3 (0-5) /hpf Urine WBC 1 (0-5) /hpf Ur Squamous Epith Cells 4 (0-4) /hpf Calcium Oxalate Crystal Occasional H (None) /hpf Urine Mucus Occasional H (None) /hpf Urine HCG, Qual (Not Detectd) 11/07/23 11/07/23 Range/Units 19:34 19:34 WBC (3.8-10.6) k/uL RBC (3.80-5.40) m/uL Hgb (11.4-16.0) gm/dL Hct (34.0-46.0) % MCV (80.0-100.0) fL MCH (25.0-35.0) pg MCHC (31.0-37.0) g/dL RDW (11.5-15.5) % Plt Count (150-450) k/uL MPV Neutrophils % % Lymphocytes % % Monocytes % % Eosinophils % % Basophils % % Neutrophils # (1.3-7.7) k/uL Lymphocytes # (1.0-4.8) k/uL Monocytes # (0-1.0) k/uL Eosinophils # (0-0.7) k/uL Basophils # (0-0.2) k/uL Sodium (137-145) mmol/L Potassium (3.5-5.1) mmol/L Chloride (98-107) mmol/L Carbon Dioxide (22-30) mmol/L Anion Gap mmol/L BUN (7-17) mg/dL Creatinine (0.52-1.04) mg/dL Est GFR (CKD-EPI)AfAm (>60 ml/min/1.73 sqM) Est GFR (CKD-EPI)NonAf (>60 ml/min/1.73 sqM) Glucose (74-99) mg/dL Plasma Lactic Acid Parveen 0.8 (0.7-2.0) mmol/L Calcium (8.4-10.2) mg/dL Total Bilirubin (0.2-1.3) mg/dL AST (14-36) U/L ALT (4-34) U/L Alkaline Phosphatase (38-126) U/L Total Protein (6.3-8.2) g/dL Albumin (3.5-5.0) g/dL Amylase (30-110) U/L Lipase (23-300) U/L Urine Color Urine Appearance (Clear) Urine pH (5.0-8.0) Ur Specific Goodrich (1.001-1.035) Urine Protein (Negative) Urine Glucose (UA) (Negative) Urine Ketones (Negative) Urine Blood (Negative) Urine Nitrite (Negative) Urine Bilirubin (Negative) Urine Urobilinogen (<2.0) mg/dL Ur Leukocyte Esterase (Negative) Urine RBC (0-5) /hpf Urine WBC (0-5) /hpf Ur Squamous Epith Cells (0-4) /hpf Calcium Oxalate Crystal (None) /hpf Urine Mucus (None) /hpf Urine HCG, Qual Not Detected (Not Detectd) Disposition Clinical Impression: Abdominal pain Disposition: HOME SELF-CARE Condition: Good Instructions (If sedation given, give patient instructions): Abdominal Pain (ED) Additional Instructions: Follow-up with PCP. Report back to ER with any new or worsening symptoms. Is patient prescribed a controlled substance at d/c from ED?: No Referrals: Henry Coyne MD [Primary Care Provider] - 1-2 days Time of Disposition: 22:01
[2023-11-07 23:12] VITALS: BP 128/62; PULSE 72
== END 2023-11-07 22:10 | disposition home or self-care (01) ==
LOC: EC 18:55
DX: R10.9 Unspecified abdominal pain (principal); M19.90 Unspecified osteoarthritis, unspecified site; F41.9 Anxiety disorder, unspecified; F12.90 Cannabis use, unspecified, uncomplicated; F17.290 Nicotine dependence, other tobacco product, uncomplicated; Z79.1 Long term (current) use of non-steroidal anti-inflammatories (NSAID); Z79.899 Other long term (current) drug therapy; Z91.040 Latex allergy status; Z91.013 Allergy to seafood
CPT/HCPCS: 36415; 80053; 82150; 83605; 83690; 85025; 81001; 81025; 99284; 96374; 96361; J1885

== ENCOUNTER 2024-02-27 10:13 | Inpatient (IN) | payer OTHER ==
--- NOTE | 2024-02-27 10:47 | ED ---
General Adult HPI - General Chief complaint: Neuro Symptoms/Deficit Stated complaint: headache Time Seen by Provider: 02/27/24 10:21 Source: patient, RN notes reviewed (and weakness) Mode of arrival: ambulatory Limitations: no limitations - History of Present Illness Initial comments: Patient is a pleasant 43-year-old female present to the emergency department with concern for headache and weakness. Patient does have chronic MS. Patient did receive an infusion yesterday and symptoms have worsened since that time. Patient does have history of chronic headaches and has had previous CTs and MRIs. Headaches have been similar however this 1 feels worse. Headache has gradually worsened over the past 24 hours. Patient has generalized weakness. Patient has blurry vision. Patient has decreased sensation left side of her face which is chronic. Patient has reported optic neuritis. Patient states she has been more off balance recently and generally weak. Patient has had urinary incontinence twice in the past 2 days. - Related Data Home Medications Medication Instructions Recorded Confirmed Ibuprofen [Motrin] 800 mg PO TID PRN 04/14/23 11/07/23 Dextroamphetamine/Amphetamine 20 mg PO DAILY 11/07/23 11/07/23 [Adderall] Ergocalciferol [Vitamin D2 (1250 1,250 mcg PO GREER 11/07/23 11/07/23 Mcg = 83447 Iu)] Meloxicam [Mobic] 15 mg PO DAILY 11/07/23 11/07/23 Oxybutynin Chloride [oxyBUTYnin 15 mg PO DAILY 11/07/23 11/07/23 chloride ER] Pregabalin [Lyrica] 75 mg PO BID 11/07/23 11/07/23 traZODone HCL [Desyrel] 50 mg PO HS PRN 11/07/23 11/07/23 Allergies Allergy/AdvReac Type Severity Reaction Status Date / Time natalizumab [From Tysabri] Allergy Rash/Hives Verified 02/27/24 10:19 shellfish derived [Shellfish] Allergy Rash/Hives Verified 11/07/23 19:47 latex AdvReac Rash/Hives Verified 11/07/23 19:47 Review of Systems ROS Statement: Those systems with pertinent positive or pertinent negative responses have been documented in the HPI. ROS Other: All systems not noted in ROS Statement are negative. Constitutional: Denies: fever Eyes: Reports: as per HPI. Denies: eye pain ENT: Denies: ear pain Respiratory: Denies: cough, dyspnea Cardiovascular: Denies: chest pain Endocrine: Denies: fatigue Gastrointestinal: Denies: abdominal pain Genitourinary: Denies: dysuria Musculoskeletal: Denies: back pain Neurological: Reports: as per HPI, headache, weakness Past Medical History Past Medical History: Osteoarthritis (OA) Additional Past Medical History / Comment(s): Kidney stones. mulitple sclorsis History of Any Multi-Drug Resistant Organisms: None Reported Past Surgical History: Section, Tonsillectomy Additional Past Surgical History / Comment(s): lithotripsy Past Anesthesia/Blood Transfusion Reactions: No Reported Reaction Past Psychological History: Anxiety Smoking Status: Former smoker, Vaper Past Alcohol Use History: Rare Past Drug Use History: Marijuana - Past Family History Mother Family Medical History: Cancer, Hypertension Father Family Medical History: Hypertension General Exam Limitations: no limitations General appearance: alert, in no apparent distress Head exam: Present: normocephalic Eye exam: Present: normal appearance, PERRL, EOMI ENT exam: Present: normal oropharynx Neck exam: Present: normal inspection Respiratory exam: Present: normal lung sounds bilaterally Cardiovascular Exam: Present: regular rate, normal rhythm GI/Abdominal exam: Present: soft. Absent: tenderness Extremities exam: Present: normal inspection Neurological exam: Present: alert, oriented X3, CN II-XII intact (Except decreased sensation left side of face. A), other (Mild slurred speech). Absent: motor sensory deficit Expanded Neurological exam: Present: protecting the airway Patient oriented to: Present: person, place, time Cranial nerves: EOM's Intact: Normal Sensory exam: Upper Extremity Light Touch: Normal, Lower Extremity Light Touch: Normal Motor strength exam: RUE: 5, LUE: 5, RLE: 5, LLE: 5 Eye Response: (4) open spontaneously Motor Response: (6) obeys commands Verbal Response: (5) oriented Psychiatric exam: Present: normal affect, normal mood Skin exam: Present: normal color Course Vital Signs 02/27/24 02/27/24 02/27/24 10:15 10:35 10:45 Temperature 98 F Pulse Rate 75 84 79 Respiratory 16 18 18 Rate Blood Pressure 168/108 135/106 117/77 O2 Sat by Pulse 98 98 96 Oximetry Medical Decision Making - Medical Decision Making Was pt. sent in by a medical professional or institution (ULISES Moreno, [employer] REPA[employer]ER, urgent care, hospital, or fci...) When possible be specific @ -No Did you speak to anyone other than the patient for history (EMS, parent, family, police, friend...)? What history was obtained from this source @ -Patient does have female accompanying her that agrees she does have some mild slurred speech Did you review nursing and triage notes (agree or disagree)? Why? @ -I reviewed and agree with nursing and triage notes Were old charts reviewed (outside hosp., previous admission, EMS record, old EKG, old radiological studies, urgent care reports/EKG's, fci records)? Report findings @ -No old charts were reviewed Differential Diagnosis (chest pain, altered mental status, abdominal pain women, abdominal pain men, vaginal bleeding, weakness, fever, dyspnea, syncope, headache, dizziness, GI bleed, back pain, seizure, CVA, palpatations, mental health, musculoskeletal)? @ -Differential Weakness: Hypoglycemia, shock, sepsis, hyponatremia, anemia, infection, OK, ETOH, adverse medicine reaction, overdose, stroke, this is not meant to be an all-inclusive list. EKG interpreted by me (3pts min.). @ -As above X-rays interpreted by me (1pt min.). @ -None done CT interpreted by me (1pt min.). @ -None done U/S interpreted by me (1pt. min.). @ -None done What testing was considered but not performed or refused? (CT, X-rays, U/S, labs)? Why? @ -Considered imaging of the brain however patient has previously had this with similar symptoms What meds were considered but not given or refused? Why? @ -Considered steroids however Dr. Robertson recommends deferring this to neurology Did you discuss the management of the patient with other professionals (professionals i.e. ULISES Moreno, [employer] B[employer] REPAIRER, lab, RT, psych nurse, social work case manager, technical information specialist, teacher, medical information officer, case assembler)? Give summary @ -Case was discussed with Dr. Robertson will admit covering Dr. Coyne with neurology consult Was smoking cessation discussed for >3mins.? @ -No Was critical care preformed (if so, how long)? @ -No Were there social determinants of health that impacted care today? How? (Homelessness, low income, unemployed, alcoholism, drug addiction, transportation, low edu. Level, literacy, decrease access to med. care, prison, rehab)? @ -No Was there de-escalation of care discussed even if they declined (Discuss DNR or withdrawal of care, Hospice)? DNR status @ -No What co-morbidities impacted this encounter? (DM, HTN, Smoking, COPD, CAD, Cancer, CVA, ARF, Chemo, Hep., AIDS, mental health diagnosis, sleep apnea, morbid obesity)? @ -Patient has underlying MS Was patient admitted / discharged? Hospital course, mention meds given and route, prescriptions, significant lab abnormalities, going to OR and other pertinent info. @ -Patient updated on plan. Patient will be provided medications for headache and will be held for admission with neurology consult. Admission orders written. Undiagnosed new problem with uncertain prognosis? @ -No Drug Therapy requiring intensive monitoring for toxicity (Heparin, Nitro, Insulin, Cardizem)? @ -No Were any procedures done? @ -No Diagnosis/symptom? @ -Weakness, headache Acute, or Chronic, or Acute on Chronic? @ -Acute, acute Uncomplicated (without systemic symptoms) or Complicated (systemic symptoms)? @ -Default Side effects of treatment? @ -No Exacerbation, Progression, or Severe Exacerbation? @ -No Poses a threat to life or bodily function? How? (Chest pain, USA, OK, pneumonia, PE, COPD, DKA, ARF, appy, cholecystitis, CVA, Diverticulitis, Homicidal, Suicidal, threat to staff... and all critical care pts) @ -No Disposition Clinical Impression: Multiple sclerosis, Weakness Disposition: ADMITTED IP TO THIS HOSP Is patient prescribed a controlled substance at d/c from ED?: No Referrals: Henry Coyne MD [Primary Care Provider] - 1-2 days Time of Disposition: 11:11
[2024-02-27] MEDS ORDERED: MORPHINE SULFATE 4 MG/ML SYRINGE IV PRN (11:11)
[2024-02-27] MEDS ORDERED: NALOXONE 0.4 MG/ML 1 ML VIAL IV PRN (11:11)
[2024-02-27] MEDS: diphenhydrAMINE 50 MG/ML 1 ML VIAL IVP STA (11:19)
[2024-02-27] MEDS: METOCLOPRAMIDE 5 MG/ML 2 ML VIAL IVP STA (11:20)
[2024-02-27] MEDS: SODIUM CHLORIDE 0.9% 1,000 ML IV STA (11:23)
[2024-02-27 11:38] LABS: Basophils # (A) 0.1 k/uL (0-0.2); Basophils % (A) 1 %; Eosinophils # (A) 0.2 k/uL (0-0.7); Eosinophils % (A) 4 %; HCT 39.5 % (34.0-46.0); HGB 13.1 gm/dL (11.4-16.0); Lymphocytes # (A) 1.3 k/uL (1.0-4.8); Lymphocytes % (A) 27 %; MCH 32.4 pg (25.0-35.0); MCHC 33.3 g/dL (31.0-37.0); MCV 97.4 fL (80.0-100.0); Mean Platelet Volume 8.2; Monocytes # (A) 0.3 k/uL (0-1.0); Monocytes % (A) 7 %; Neutrophils # (A) 2.7 k/uL (1.3-7.7); Neutrophils % (A) 59 %; Platelet Count 153 k/uL (150-450); RBC 4.05 m/uL (3.80-5.40); RDW 14.3 % (11.5-15.5); WBC 4.6 k/uL (3.8-10.6)
[2024-02-27] MEDS: ACETAMINOPHEN TAB 325 MG TAB PO PRN (11:43)
[2024-02-27 11:57] LABS: ALT 23 U/L (4-34); AST 20 U/L (14-36); African American GFR (CKD) >90 (>60 ml/min/1.73 sqM); Albumin 3.8 g/dL (3.5-5.0); Alkaline Phosphatase 73 U/L (38-126); Anion Gap 5 mmol/L; Blood Urea Nitrogen 15 mg/dL (7-17); Calcium 8.9 mg/dL (8.4-10.2); Carbon Dioxide 24 mmol/L (22-30); Chloride 111 mmol/L (98-107); Glucose 99 mg/dL (74-99); Magnesium 1.7 mg/dL (1.6-2.3); Non-African American GFR(CKD) >90 (>60 ml/min/1.73 sqM); Potassium 3.6 mmol/L (3.5-5.1); Sodium 140 mmol/L (137-145); Total Bilirubin 0.3 mg/dL (0.2-1.3); Total Protein 6.3 g/dL (6.3-8.2)
[2024-02-27 12:14] LABS: T4, Free (Free Thyroxine) 0.75 ng/dL (0.78-2.19)
[2024-02-27] MEDS ORDERED: LACTULOSE 20 GM/30 ML CUP PO PRN (12:27)
[2024-02-27] MEDS ORDERED: ONDANSETRON 4 MG/2 ML VIAL IVP PRN (12:27)
[2024-02-27] MEDS ORDERED: CALCIUM CARBONATE 500 MG CHEWABLE PO PRN (12:27)
[2024-02-27] MEDS: traMADol 50 MG TAB PO PRN (14:11)
[2024-02-27] MEDS: ENOXAPARIN 40 MG/0.4 ML SYRINGE SQ SCH (14:13)
[2024-02-27] MEDS: carBAMazepine 200 MG TAB PO SCH (14:14)
[2024-02-27] MEDS: SODIUM CHLORIDE 0.9% 1,000 ML IV SCH (14:16)
--- NOTE | 2024-02-27 14:41 | P.HPIM ---
History of Present Illness H&P Date: 02/27/24 Chief Complaint: Tired This is a very pleasant 43-year-old patient who follows with Dr. Coyne. Chronic stable medical conditions include kidney stones, urinary incontinence, GERD, anxiety. Also diagnosis of multiple sclerosis. Left optic neuritis. Patient is accompanied by 18-year-old daughter in the ER. At the baseline patient has some lower extremity weakness. Urine incontinence. Some blurriness of the left eye. Occasional headaches. Yesterday patient received IV injection of Ocrevus. Intravenous. Still has some headache. Feeling tired. Monitor for neurological deficit worse except for some worsening of left eye blurriness. Speech at baseline is also a bit slow. No fever no chills. Review of systems: GEN.: Tired EYES: As above HEENT: None NECK: None RESPIRATORY: None CARDIOVASCULAR: None GASTROINTESTINAL: None GENITOURINARY: None MUSCULOSKELETAL: None LYMPHATICS: None HEMATOLOGICAL: None PSYCHIATRY: None NEUROLOGICAL: As above, Past medical history to include: Kidney stones, urinary incontinence, GERD, anxiety, left optic neuritis/multiple sclerosis Social history: Patient lives with her 2 children ages 14 and 18. 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 Physical examination: VITAL SIGNS: 98, 79, 18, 1 one 7 x 77, 96% room air GENERAL: BMI 45.7, reclining in bed tired EYES: Pupils equal. Conjunctiva normal. HEENT: External appearance of nose and ears normal, oral cavity grossly normal. NECK: JVD not raised; masses not palpable. HEART: First and second heart sounds are normal; no edema. LUNGS: Respiratory rate normal; clear to auscultation. ABDOMEN: Soft, nontender, liver spleen not palpable, no masses palpable. PSYCH: Alert and oriented x3; mood and affect tired MUSCULOSKELETAL:No Clubbing/cyanosis;muscles-grossly intact NEUROLOGICAL: Cranial nerves grossly intact; no facial asymmetry, power and sensation grossly intact. Vision through the left eye blurry. LYMPHATICS: No lymph nodes palpable in the axilla and neck INVESTIGATIONS, reviewed in the clinical context: February 26: White count 4.6 hemoglobin 13.1 platelets 153 potassium 3.6 creatinine 0.65 TSH 1.4 Previous test: March 2023 MRI brain orbit with and without contrast: Mild a visiting white matter changes present the basis of known MS. No abnormal enhancing lesions evident. Left optic nerve consistent active optic neuritis. CT brain:White matter changes within the right posterior parietal region, similar to March 13. Brain orbit MRI. Mild nonspecific white matter changes present in the bases of abnormal enhancing lesions evident. Abnormal enhancement of the left optic nerve. Consistent no active optic neuritis. Assessment plan: -Possible systemic effect of Ocremus-with generalized symptoms. Not allergy. Patient neurological symptoms not too different from her baseline. -Chronic multiple sclerosis 6 monthlyOcrevus -Chronic left eye optic neuritis,-multiple sclerosis. 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 Home medications resumed. Subcu Lovenox. Neurochecks. Neurology consulted. Discussed with patient. Past Medical History Past Medical History: Osteoarthritis (OA) Additional Past Medical History / Comment(s): Kidney stones. mulitple sclorsis History of Any Multi-Drug Resistant Organisms: None Reported Past Surgical History: Section, Tonsillectomy Additional Past Surgical History / Comment(s): lithotripsy Past Anesthesia/Blood Transfusion Reactions: No Reported Reaction Past Psychological History: Anxiety Smoking Status: Former smoker, Vaper Past Alcohol Use History: Rare Past Drug Use History: Marijuana - Past Family History Mother Family Medical History: Cancer, Hypertension Father Family Medical History: Hypertension Medications and Allergies Home Medications Medication Instructions Recorded Confirmed Type Dextroamphetamine/Amphetamine 40 mg PO DIRECTED 11/07/23 02/27/24 History [Adderall] Ergocalciferol [Vitamin D2 (1250 1,250 mcg PO GREER 11/07/23 02/27/24 History Mcg = 66012 Iu)] Meloxicam [Mobic] 15 mg PO DAILY 11/07/23 02/27/24 History traZODone HCL [Desyrel] 50 mg PO HS 11/07/23 02/27/24 History Baclofen 10 mg PO HS 02/27/24 02/27/24 History Fesoterodine Fumarate 8 mg PO DAILY 02/27/24 02/27/24 History [Fesoterodine Fumarate ER] Fish Oil (Unknown Strength) 1 tab PO DAILY 02/27/24 02/27/24 History Linaclotide [Linzess] 290 mcg PO DAILY 02/27/24 02/27/24 History Magnesium (Unknown Strength) 1 tab PO DAILY 02/27/24 02/27/24 History Ocrelizumab [Ocrevus] 1 dose IV Q180D 02/27/24 02/27/24 History Pregabalin 150 mg PO BID 02/27/24 02/27/24 History Vitamin B Complex 1 cap PO DAILY 02/27/24 02/27/24 History carBAMazepine 200 mg PO BID 02/27/24 02/27/24 History Allergies Allergy/AdvReac Type Severity Reaction Status Date / Time latex Allergy Rash/Hives Verified 02/27/24 11:25 natalizumab [From Tysabri] Allergy Rash/Hives Verified 02/27/24 11:25 shellfish derived [Shellfish] Allergy Rash/Hives Verified 02/27/24 11:25 codeine AdvReac Nausea & Verified 02/27/24 11:25 Vomiting Physical Exam Vitals: Vital Signs Temp Pulse Resp BP Pulse Ox 02/27/24 14:24 73 18 114/76 98 02/27/24 10:45 79 18 117/77 96 02/27/24 10:35 84 18 135/106 98 02/27/24 10:15 98 F 75 16 168/108 98 Intake and Output 02/26/24 02/27/24 02/27/24 22:59 06:59 14:59 Other: Weight 113.398 kg Results CBC & Chem 7: 02/27/24 11:25 02/27/24 11:25 Labs: Abnormal Lab Results - Last 24 Hours (Table) 02/27/24 Range/Units 11:25 Chloride 111 H (98-107) mmol/L Free T4 0.75 L (0.78-2.19) ng/dL
--- NOTE | 2024-02-27 15:22 | P.CNNES ---
History of Present Illness Consult date: 02/27/24 Requesting physician: Dhiraj Salcedo Reason for Consult: Weak, MS History of Present Illness: Patient is a 43-year-old female, who was diagnosed with relapsing remitting multiple sclerosis came to the hospital today at 10:13 AM for worsening neurological symptoms. Patient was diagnosed with relapsing remitting multiple sclerosis on 04/14/2023 after she presented with acute left optic neuritis. Patient was treated with steroids, discharged home. Patient subsequently saw Dr. María Nance in [facility], who started her on Tysabri. Patient stayed on Tysabri for 5 months, but on the last infusion, she developed severe allergic reaction with rash all over the body. She then was off DMT's for few months until started Ocrevus yesterday. She received the first dose of Ocrevus yesterday. Patient has a lot of neurological symptoms since she was diagnosed with MS. However it seems to be getting worse. Patient has developed numbness of the left facial region, and the left ophthalmic division for the last 1 month, that has got worse recently. Her right leg has numbness with pins and needle sensation in both legs since the diagnosis. However lately she is dragging her right leg more in the last couple weeks. For last few weeks, patient has been having "Jell-O legs" when going up and down steps bilaterally, but last week is worse. Her speech is not the best. She is trying to find the words. She is "messing up with things and words", noticeable by her kids. She has some paraphasic errors, saying to her repeatedly "hold my house" when she actually meant "hold my hand". She has particular problems counting many, with performing basic gnats for the last 1 to 2 months. She has developed "terrible ringing in the ears" for the last 1 to 2 months. She has developed bladder control issues with some urgency particularly worse in the last couple days. She had accident 3 times since last 2 days. Today she is complaining of a bad headache. She is noticing her depth perception is off this morning. Patient's vitals on arrival blood pressure 168/108, temperature 98.0 and pulse rate 75. Subsequent blood pressures are normal. Blood test shows normal CBC with differential, normal CMP. Patient's previous blood test shows negative KAIDEN, Sjogren's antibodies, Lyme titer, QuantiFERON TB Gold, B12 974, MMA 0.10, folate 10.30. Angiotensin-converting enzyme was normal 21. Hemoglobin A1c 5.2. Patient still vapes. Denies any alcohol use. Review of Systems Constitutional: Reports weight gain, Denies chills, Denies fever Eyes: bilateral blurred vision, denies diplopia, denies pain, denies loss of vision Ears: bilateral: decreased hearing, tinnitus Ears, nose, mouth and throat: Reports headache, Denies sore throat, Denies vertigo Cardiovascular: Reports shortness of breath, Denies chest pain Respiratory: Denies cough, Denies excessive sputum Gastrointestinal: Reports nausea, Reports vomiting, Denies abdominal pain, Denies diarrhea Genitourinary: Reports urge incontinence, Reports urgency, Denies dysuria Musculoskeletal: Reports neck pain, Denies low back pain Integumentary: Denies pruritus, Denies rash Neurological: Reports as per HPI Psychiatric: Reports anxiety, Reports depression (sometimes) Endocrine: Reports fatigue, Reports weight change Past Medical History Past Medical History: Osteoarthritis (OA) Additional Past Medical History / Comment(s): Kidney stones. mulitple sclorsis History of Any Multi-Drug Resistant Organisms: None Reported Past Surgical History: Section, Tonsillectomy Additional Past Surgical History / Comment(s): lithotripsy Past Anesthesia/Blood Transfusion Reactions: No Reported Reaction Past Psychological History: Anxiety Smoking Status: Former smoker, Vaper Past Alcohol Use History: Rare Past Drug Use History: Marijuana - Past Family History Mother Family Medical History: Cancer, Hypertension Father Family Medical History: Hypertension Medications and Allergies Home Medications Medication Instructions Recorded Confirmed Type Dextroamphetamine/Amphetamine 40 mg PO DIRECTED 11/07/23 02/27/24 History [Adderall] Ergocalciferol [Vitamin D2 (1250 1,250 mcg PO GREER 11/07/23 02/27/24 History Mcg = 33880 Iu)] Meloxicam [Mobic] 15 mg PO DAILY 11/07/23 02/27/24 History traZODone HCL [Desyrel] 50 mg PO HS 11/07/23 02/27/24 History Baclofen 10 mg PO HS 02/27/24 02/27/24 History Fesoterodine Fumarate 8 mg PO DAILY 02/27/24 02/27/24 History [Fesoterodine Fumarate ER] Fish Oil (Unknown Strength) 1 tab PO DAILY 02/27/24 02/27/24 History Linaclotide [Linzess] 290 mcg PO DAILY 02/27/24 02/27/24 History Magnesium (Unknown Strength) 1 tab PO DAILY 02/27/24 02/27/24 History Ocrelizumab [Ocrevus] 1 dose IV Q180D 02/27/24 02/27/24 History Pregabalin 150 mg PO BID 02/27/24 02/27/24 History Vitamin B Complex 1 cap PO DAILY 02/27/24 02/27/24 History carBAMazepine 200 mg PO BID 02/27/24 02/27/24 History Allergies Allergy/AdvReac Type Severity Reaction Status Date / Time latex Allergy Rash/Hives Verified 02/27/24 11:25 natalizumab [From Tysabri] Allergy Rash/Hives Verified 02/27/24 11:25 shellfish derived [Shellfish] Allergy Rash/Hives Verified 02/27/24 11:25 codeine AdvReac Nausea & Verified 02/27/24 11:25 Vomiting Physical Examination - Vital Signs Vital Signs: Vital Signs Temp Pulse Resp BP Pulse Ox 02/27/24 10:45 79 18 117/77 96 02/27/24 10:35 84 18 135/106 98 02/27/24 10:15 98 F 75 16 168/108 98 Intake and Output 02/26/24 02/27/24 02/27/24 22:59 06:59 14:59 Other: Weight 113.398 kg Patient is a middle aged female, in no acute distress. Patient is alert awake oriented to time place and person. Speech and language functions are normal. Occasionally she stutters. Sometimes she answers not correctly regarding time frames. Occasionally she appears to have some dysarthria. Patient can name and repeat very well. Attention, concentration and fund of knowledge is slightly impaired. Detailed cognitive function testing deferred. On cranial nerve examination, pupils are equal, round and reacting to light, visual cleary are full on confrontation, with no neglect on double simultaneous stimulation. Extraocular muscles are intact with slight nystagmus to the left side. Patient has very subtle asymmetry of the left side only with active testing. Her tongue protrudes to the midline. Palatal elevation and sensation normal, hearing and shoulder shrug normal, facial sensation decreased in the left V1 (ophthalmic) distribution. On muscle strength testing, there is no pronator drift. The strength is (right/left) deltoid 5/5, biceps 5-/5, campaign advisor 4+/4, hip flexion 5-/5, ankle dorsiflexion 5/5. Deep tendon reflexes are (right/left) biceps 2+/2+, brachioradialis 1/1, knees 1+/2+, ankles 2+/2+ and plantars are flat bilaterally. Sensory to touch produce pins and needle sensation in both legs. Sensations are equal in the upper limbs. No neglect on double simultaneous stimulation. Cerebellar function showed no ataxia for [id number] testing although patient was shaky bilaterally. No dysdiadochokinesia. No ataxia for [id number] testing on either side. Tone and bulk of muscles normal. Gait deferred.. On general examination, there is no carotid bruit or murmur, S1-S2 audible. Chest is clear on consultation. Abdomen is soft nontender. No organomegaly, bowel sounds present. Peripheral pulses are present. No peripheral edema. Results - Laboratory Findings CBC and BMP: 02/27/24 11:25 02/27/24 11:25 Abnormal Lab Findings: Abnormal Labs 02/27/24 11:25 Chloride 111 H Free T4 0.75 L Assessment and Plan Assessment: * Relapsing remitting MS, with possible MS exacerbation, versus symptoms related to receiving Ocrevus for the first time. Patient has numerous neurological symptoms including visual disturbance, speech difficulty, worsening of the numbness in the legs, bladder control issues, dragging right leg. Localization difficult to assess. * Patient has received first dose of Ocrevus yesterday. * Vapor Plan: * Patient has just received Ocrevus first dose yesterday. * Patient also had MRI of the brain performed within the month at her neurologist hospital in [facility]. * We will contact her neurologist Dr. María Nance to discuss further management. * PT, OT, speech therapy * Thank you for the consult. Addendum: I called patient's neurologist office in [facility]. Patient's neurologist Dr. Nance is on medical leave. I was able to contact her partner Dr. Josseline Segura, who is also an MS specialist. She informed me that patient's last MRI of the brain was performed on 01/18/2023, which revealed very rare white matter lesions. She recommended patient undergo an MRI of the brain with and without contrast. Recommended give 1 dose of Solu-Medrol 1 g. If the MRI reveals new lesions, then continue full dose Solu-Medrol for 3 to 5 days. Otherwise if no new or enhancing lesions, then just 1 dose should suffice. As patient has recently received Ocrevus, she needs to tough it out to make sure that she gets the full dose in 2 weeks. In the meantime, we will continue to treat her symptoms. Time with Patient: Greater than 30
[2024-02-27] MEDS: BACLOFEN 10 MG TAB PO SCH (20:22)
[2024-02-27] MEDS: traZODone HCL 50 MG TAB PO SCH (20:22)
[2024-02-27] MEDS: PREGABALIN 75 MG CAP PO SCH (20:22)
[2024-02-27] MEDS: ALPRAZolam 0.25 MG TAB PO PRN (23:54)
[2024-02-28 07:36] VITALS: RESP 16
[2024-02-28] MEDS ORDERED: NON FORMULARY DRUG (Vitamin B Complex [Vitamin B Complex] 1 EACH Capsule) PO SCH (09:00)
[2024-02-28] MEDS: TROSPIUM CHLORIDE 20 MG TABLET PO SCH (09:06)
[2024-02-28] MEDS: PATIENT'S OWN (Linaclotide [Linzess] 290 MCG Capsule) PO SCH (09:11)
[2024-02-28] MEDS: methylPREDNISolone SOD SUCCIN 1,000 MG in SODIUM CHLORIDE 0.9% 250 ML IVPB ONE (11:11)
[2024-02-28] MEDS: MELOXICAM 7.5 MG TAB PO SCH (11:56)
[2024-02-28 13:59] LABS: Appearance,Urine Clear (Clear); Bilirubin,Urine Negative (Negative); Blood,Urine Trace (Negative); Color,Urine Colorless; Glucose,Urine (UA) Negative (Negative); Ketones,Urine Negative (Negative); Leukocyte Esterase,Urine Negative (Negative); Mucus,Urine Rare /hpf; Nitrite,Urine Negative (Negative); PH, Urine 7.5 (5.0-8.0); Protein,Urine Negative (Negative); RBC,Urine 7 /hpf (0-5); Specific Gravity,Urine 1.008 (1.001-1.035); Squamous Epithelial Cell,Urine 2 /hpf (0-4); Urobilinogen,Urine <2.0 mg/dL (<2.0); WBC,Urine 4 /hpf (0-5)
--- NOTE | 2024-02-28 16:30 | MR ---
EXAMINATION TYPE: MR brain wo/w con DATE OF EXAM: 02/28/2024 COMPARISON: CT brain 04/13/2023, MRI 04/14/2023 HISTORY: MS, exacerbation, evaluate for new lesion CONTRAST: Performed utilizing 11.5 mL intravenous Gadavist gadolinium contrast. TECHNIQUE: Multiplanar, multisequence imaging of the brain is performed on a 3.0 Paz magnet. Demye linating disease protocol with additional Sagittal Flair sequence is performed. Study is performed wi thin 24 hours of arrival to the hospital. FINDINGS: T2 White Matter Lesions Present : Yes Approximate Number of Lesions: Multiple scattered Locations Identified : Subcortical white matter bilateral centrum semiovale, right periventricular. Size of Largest Lesion(s): 1. There is a 0.5 cm hyperintensity series 702 image 23. This may be new from comparison. 2. Subcortical white matter change right centrum semiovale measuring 0.3 cm. Series 702 image 25 3. 0.5 cm subcortical white matter change in the superior left frontal lobe. Series 702 image 28, sta ble. 4. 0.6 cm subcortical white matter change left frontal lobe. Series 702 image 27, stable. Enhancing Lesion(s) Present: No Change from Prior: Stable Diffusion-weighted imaging is performed. No abnormal hyperintensity is present to suggest an acute i ntracranial infarct or acute ischemic change. Ventricles and sulci are appropriate for the patient age. There are no abnormal extra-axial fluid collections. The ventricular system and cisternal spaces are normal in size and appearance. The brain volume is age appropriate. The craniocervical junction loi ears within normal limits. The dural venous sinuses appear patent. No abnormal enhancement is present on post contrast images. . The visualized sinuses are clear. Visu alized orbits are unremarkable. IMPRESSION: 1. Scattered small hyperintensities within the subcortical white matter and right periventricular wh ite matter are nonspecific but can be compatible with multiple sclerosis. Differential diagnosis incl udes vasculitis, chronic microvascular ischemic change, migraine headaches, among other etiologies. 2. The right periventricular hyperintensity appears to be an interval finding from the prior exam. No enlarging lesions are identified.
--- NOTE | 2024-02-28 18:01 | P.PN ---
Progress Note - Text Progress Note Date: 02/28/24 Chief Complaint: Tired This is a very pleasant 43-year-old patient who follows with Dr. Coyne. Chronic stable medical conditions include kidney stones, urinary incontinence, GERD, anxiety. Also diagnosis of multiple sclerosis. Left optic neuritis. Patient is accompanied by 18-year-old daughter in the ER. At the baseline patient has some lower extremity weakness. Urine incontinence. Some blurriness of the left eye. Occasional headaches. Yesterday patient rece ived IV injection of Ocrevus. Intravenous. Still has some headache. Feeling tired. Monitor for neurological deficit worse except for some worsening of left eye blurriness. Speech at baseline is also a bit slow. No fever no chills. February 27: I seen the patient earlier this morning. Later MRI was done. No enhancing lesions. Discussed with Dr. Robledo from neurology. Patient did receive a dose of Solu-Medrol earlier today. Next dose is not due until tomorrow. Spoke to then patient again. She is concerned about her increased incontinence and weakness in the legs. Patient will be reviewed tomorrow by neurology and further decision from there. Active Medications Acetaminophen (Acetaminophen Tab 325 Mg Tab) 650 mg PO Q6HR PRN PRN Reason: Mild Pain or Fever > 100.5 Last Admin: 02/27/24 22:24 Dose: 650 mg Alprazolam (Alprazolam 0.25 Mg Tab) 0.25 mg PO Q6HR PRN PRN Reason: Anxiety Last Admin: 02/27/24 23:54 Dose: 0.25 mg Baclofen (Baclofen 10 Mg Tab) 10 mg PO HS [facility] Last Admin: 02/27/24 20:22 Dose: 10 mg Calcium Carbonate/Glycine (Calcium Carbonate 500 Mg Chewable) 1,000 mg PO Q4HR PRN PRN Reason: Dyspepsia Carbamazepine (Carbamazepine 200 Mg Tab) 200 mg PO BID [facility] Last Admin: 02/28/24 09:06 Dose: 200 mg Enoxaparin Sodium (Enoxaparin 40 Mg/0.4 Ml Syringe) 40 mg SQ DAILY [facility] Last Admin: 02/28/24 09:05 Dose: 40 mg Ergocalciferol (Ergocalciferol 1,250 Mcg (50,000 Iu) Capsule) 1,250 mcg PO [facility] Lactulose (Lactulose 20 Gm/30 Ml Cup) 20 gm PO DAILY PRN PRN Reason: Constipation Meloxicam (Meloxicam 7.5 Mg Tab) 15 mg PO DAILY [facility] Last Admin: 02/28/24 11:56 Dose: 15 mg Naloxone HCl (Naloxone 0.4 Mg/Ml 1 Ml Vial) 0.2 mg IV Q2M PRN PRN Reason: Opioid Reversal Patient's Own ( Linaclotide [Linzess ] 290 Mcg Capsule) 290 mcg PO DAILY [facility] Last Admin: 02/28/24 09:11 Dose: Not Given Ondansetron HCl (Ondansetron 4 Mg/2 Ml Vial) 4 mg IVP Q8HR PRN PRN Reason: Nausea And Vomiting Pregabalin (Pregabalin 75 Mg Cap) 150 mg PO BID [facility] Last Admin: 02/28/24 09:06 Dose: 150 mg Tramadol HCl (Tramadol 50 Mg Tab) 50 mg PO Q6H PRN PRN Reason: Moderate Pain (Scale 4 to 6) Last Admin: 02/27/24 14:11 Dose: 50 mg Trazodone HCl (Trazodone Hcl 50 Mg Tab) 50 mg PO HS [facility] Last Admin: 02/27/24 20:22 Dose: 50 mg Trospium (Trospium Chloride 20 Mg Tablet) 20 mg PO BID [facility] Last Admin: 02/28/24 09:06 Dose: 20 mg Past medical history to include: Kidney stones, urinary incontinence, GERD, anxiety, left optic neuritis/multiple sclerosis Social history: Patient lives with her 2 children ages 14 and 18. 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 Physical examination: VITAL SIGNS: 98.1, 86, 16, 1 one 8 x 77, 96% room air GENERAL: BMI 45.7, reclining in bed tired EYES: Pupils equal. Conjunctiva normal. HEENT: External appearance of nose and ears normal, oral cavity grossly normal. NECK: JVD not raised; masses not palpable. HEART: First and second heart sounds are normal; no edema. LUNGS: Respiratory rate normal; clear to auscultation. ABDOMEN: Soft, nontender, liver spleen not palpable, no masses palpable. PSYCH: Alert and oriented x3; mood and affect tired MUSCULOSKELETAL:No Clubbing/cyanosis;muscles-grossly intact NEUROLOGICAL: Cranial nerves grossly intact; no facial asymmetry, power and sensation grossly intact. Vision through the left eye blurry. [Patient does have trouble walking, for few weeks] LYMPHATICS: No lymph nodes palpable in the axilla and neck INVESTIGATIONS, reviewed in the clinical context: MRI brain [February 27] no new enhancing lesions. MRI was reviewed by neurologist Dr. Robledo 2. February 26: White count 4.6 hemoglobin 13.1 platelets 153 potassium 3.6 creatinine 0.65 TSH 1.4 Previous test: March 2023 MRI brain orbit with and without contrast: Mild a visiting white matter changes present the basis of known MS. No abnormal enhancing lesions evident. Left optic nerve consistent active optic neuritis. CT brain:White matter changes within the right posterior parietal region, similar to March 13. Brain orbit MRI. Mild nonspecific white matter changes present in the bases of abnormal enhancing lesions evident. Abnormal enhancement of the left optic nerve. Consistent no active optic neuritis. Assessment plan: -Possible systemic effect of Ocremus-with generalized symptoms. Not allergy. Patient neurological symptoms not too different from her baseline. -Chronic multiple sclerosis, with some acute flareup in last few days. 6 monthlyOcrevus-received a dose the day before admission. Received 1 dose of 1000 mg IV Solu-Medrol today. -Chronic left eye optic neuritis,-multiple sclerosis. 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 Dr. Huston will review the patient tomorrow and discussed with the neurologist for further plan. Past Medical History Past Medical History: Osteoarthritis (OA) Additional Past Medical History / Comment(s): Kidney stones. mulitple sclorsis History of Any Multi-Drug Resistant Organisms: None Reported Past Surgical History: Section, Tonsillectomy Additional Past Surgical History / Comment(s): lithotripsy Past Anesthesia/Blood Transfusion Reactions: No Reported Reaction Past Psychological History: Anxiety Smoking Status: Former smoker, Vaper Past Alcohol Use History: Rare Past Drug Use History: Marijuana
--- NOTE | 2024-02-29 10:47 | P.PN ---
Subjective Progress Note Date: 02/28/24 Patient was seen for a follow-up. Patient states she is feeling slightly better. Offers no new complaints. Objective - Vital Signs Vital signs: Vital Signs Temp 98.1 F 02/28/24 07:25 Pulse 66 02/28/24 07:25 Resp 16 02/28/24 07:25 BP 98/62 02/28/24 07:25 Pulse Ox 97 02/28/24 07:25 FiO2 Intake & Output 02/27/24 02/28/24 02/28/24 18:59 06:59 18:59 Intake Total 180 Balance 180 Weight 113.398 kg 113.398 kg Intake: Oral 180 Other: # Voids 2 - Exam Examination unchanged. Mentation normal. Speech is improved. - Labs CBC & Chem 7: 02/27/24 11:25 02/27/24 11:25 Assessment and Plan Assessment: * Relapsing remitting MS, with possible MS exacerbation, versus symptoms related to receiving Ocrevus for the first time. Patient has numerous neurological symptoms including visual disturbance, speech difficulty, worsening of the numbness in the legs, bladder control issues, dragging right leg. Localization difficult to assess. * Patient has received first dose of Ocrevus day prior to arrival. * Vapor Plan: * Patient has just received Ocrevus first dose, the day prior to arrival to hospital. * MRI of the brain with and without contrast revealed scattered small hyperintensities within the subcortical white matter and right periventricular white matter are nonspecific but can be compatible with multiple sclerosis. D ifferential diagnosis includes vasculitis, chronic microvascular ischemic change, migraine headache, among other etiologies. The right periventricular hyperintensity appears to be an interval finding from the prior exam. No enlarging lesions are identified. No abnormal enhancement present on post contrast images. I personally reviewed MRI, agree with the findings. * I had spoken to patient's neurologist office in [facility] yesterday. Patient's neurologist Dr. Nance is on medical leave. I was able to contact her partner Dr. Josseline Segura, who is also an MS specialist. She informed me that patient's last MRI of the brain was performed on 01/18/2023, which revealed very rare white matter lesions. She recommended patient undergo an MRI of the brain with and without contrast. Recommended give 1 dose of Solu- Medrol 1 g. If the MRI reveals new lesions, then continue full dose Solu- Medrol for 3 to 5 days. Otherwise if no new or enhancing lesions, then just 1 dose should suffice. As patient has recently received Ocrevus, she needs to tough it out to make sure that she gets the full dose in 2 weeks. In the meantime, we will continue to treat her symptoms. * PT, OT, speech therapy * Neurologically clear. However patient wants to stay in the hospital and we will observe her overnight. * If symptoms persist, we will discuss with her neurologist again about above test results.
[2024-02-29] MEDS: methylPREDNISolone SOD SUCCIN 1,000 MG in SODIUM CHLORIDE 0.9% 250 ML IVPB SCH (13:17)
--- NOTE | 2024-02-29 15:51 | P.PN ---
Progress Note - Text Progress Note Date: 02/29/24 Chief Complaint: Tired This is a very pleasant 43-year-old patient who follows with Dr. Coyne. Chronic stable medical conditions include kidney stones, urinary incontinence, GERD, anxiety. Also diagnosis of multiple sclerosis. Left optic neuritis. Patient is accompanied by 18-year-old daughter in the ER. At the baseline patient has some lower extremity weakness. Urine incontinence. Some blurriness of the left eye. Occasional headaches. Yesterday patient rece ived IV injection of Ocrevus. Intravenous. Still has some headache. Feeling tired. Monitor for neurological deficit worse except for some worsening of left eye blurriness. Speech at baseline is also a bit slow. No fever no chills. February 27: I seen the patient earlier this morning. Later MRI was done. No enhancing lesions. Discussed with Dr. Robledo from neurology. Patient did receive a dose of Solu-Medrol earlier today. Next dose is not due until tomorrow. Spoke to then patient again. She is concerned about her increased incontinence and weakness in the legs. Patient will be reviewed tomorrow by neurology and further decision from there. February 28: Patient is using a walker to ambulate. Mother at the bedside. Seen by Dr. Huston this afternoon. More IV's Solu-Medrol ordered. Possibly 1 more dose tomorrow. Active Medications Acetaminophen (Acetaminophen Tab 325 Mg Tab) 650 mg PO Q6HR PRN PRN Reason: Mild Pain or Fever > 100.5 Last Admin: 02/29/24 09:41 Dose: 650 mg Alprazolam (Alprazolam 0.25 Mg Tab) 0.25 mg PO Q6HR PRN PRN Reason: Anxiety Last Admin: 02/28/24 23:32 Dose: 0.25 mg Baclofen (Baclofen 10 Mg Tab) 10 mg PO HS [facility] Last Admin: 02/28/24 21:48 Dose: 10 mg Calcium Carbonate/Glycine (Calcium Carbonate 500 Mg Chewable) 1,000 mg PO Q4HR PRN PRN Reason: Dyspepsia Carbamazepine (Carbamazepine 200 Mg Tab) 200 mg PO BID [facility] Last Admin: 02/29/24 08:11 Dose: 200 mg Enoxaparin Sodium (Enoxaparin 40 Mg/0.4 Ml Syringe) 40 mg SQ DAILY [facility] Last Admin: 02/29/24 08:11 Dose: 40 mg Ergocalciferol (Ergocalciferol 1,250 Mcg (50,000 Iu) Capsule) 1,250 mcg PO [facility] Methylprednisolone Sodium Succinate 1,000 mg/ Sodium Chloride 250 mls @ 250 mls/hr IVPB DAILY [facility] Stop: 03/02/24 13:01 Last Admin: 02/29/24 13:17 Dose: 250 mls/hr Lactulose (Lactulose 20 Gm/30 Ml Cup) 20 gm PO DAILY PRN PRN Reason: Constipation Meloxicam (Meloxicam 7.5 Mg Tab) 15 mg PO DAILY [facility] Last Admin: 02/29/24 08:10 Dose: 15 mg Naloxone HCl (Naloxone 0.4 Mg/Ml 1 Ml Vial) 0.2 mg IV Q2M PRN PRN Reason: Opioid Reversal Patient's Own ( Linaclotide [Linzess ] 290 Mcg Capsule) 290 mcg PO DAILY [facility] Last Admin: 02/29/24 08:12 Dose: Not Given Ondansetron HCl (Ondansetron 4 Mg/2 Ml Vial) 4 mg IVP Q8HR PRN PRN Reason: Nausea And Vomiting Pregabalin (Pregabalin 75 Mg Cap) 150 mg PO BID [facility] Last Admin: 02/29/24 08:11 Dose: 150 mg Tramadol HCl (Tramadol 50 Mg Tab) 50 mg PO Q6H PRN PRN Reason: Moderate Pain (Scale 4 to 6) Last Admin: 02/27/24 14:11 Dose: 50 mg Trazodone HCl (Trazodone Hcl 50 Mg Tab) 50 mg PO HS [facility] Last Admin: 02/28/24 21:49 Dose: 50 mg Trospium (Trospium Chloride 20 Mg Tablet) 20 mg PO BID [facility] Last Admin: 02/29/24 08:11 Dose: 20 mg Past medical history to include: Kidney stones, urinary incontinence, GERD, anxiety, left optic neuritis/multiple sclerosis Social history: Patient lives with her 2 children ages 14 and 18. 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 Physical examination: VITAL SIGNS: 98.6, 84, 16, 136 x 92, 98% room air GENERAL: BMI 45.7, up in bed EYES: Pupils equal. Conjunctiva normal. HEENT: External appearance of nose and ears normal, oral cavity grossly normal. NECK: JVD not raised; masses not palpable. HEART: First and second heart sounds are normal; no edema. LUNGS: Respiratory rate normal; clear to auscultation. ABDOMEN: Soft, nontender, liver spleen not palpable, no masses palpable. PSYCH: Alert and oriented x3; mood and affect tired MUSCULOSKELETAL:No Clubbing/cyanosis;muscles-grossly intact NEUROLOGICAL: Cranial nerves grossly intact; no facial asymmetry, . Vision through the left eye blurry. [Patient does have trouble walking, from using walker s] INVESTIGATIONS, reviewed in the clinical context: MRI brain [February 27] no new enhancing lesions. MRI was reviewed by neurologist Dr. Robledo 2. February 26: White count 4.6 hemoglobin 13.1 platelets 153 potassium 3.6 creatinine 0.65 TSH 1.4 Previous test: March 2023 MRI brain orbit with and without contrast: Mild a visiting white matter changes present the basis of known MS. No abnormal enhancing lesions evident. Left optic nerve consistent active optic neuritis. CT brain:White matter changes within the right posterior parietal region, similar to March 13. Brain orbit MRI. Mild nonspecific white matter changes present in the bases of abnormal enhancing lesions evident. Abnormal enhancement of the left optic nerve. Consistent no active optic neuritis. Assessment plan: -Possible systemic effect of Ocremus-with generalized symptoms. Not allergy. Patient neurological symptoms not too different from her baseline. -Acute on chronic multiple sclerosis, with some flareup in last few days. 6 monthly Ocrevus-received a dose the day before admission. IV [id number] 2 -Chronic left eye optic neuritis,-multiple sclerosis. 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 Discussed with patient. Using walker for safety right now. Past Medical History Past Medical History: Osteoarthritis (OA) Additional Past Medical History / Comment(s): Kidney stones. mulitple sclorsis History of Any Multi-Drug Resistant Organisms: None Reported Past Surgical History: Section, Tonsillectomy Additional Past Surgical History / Comment(s): lithotripsy Past Anesthesia/Blood Transfusion Reactions: No Reported Reaction Past Psychological History: Anxiety Smoking Status: Former smoker, Vaper Past Alcohol Use History: Rare Past Drug Use History: Marijuana
--- NOTE | 2024-03-01 07:11 | P.PN ---
Subjective Progress Note Date: 02/29/24 Patient was seen for a follow-up. Patient's mother was also present today. Patient states that she has "little headaches". She does have a walker at home as well as a cane. She often tends to lose balance. Patient's balance has been an issue since the diagnosis of MS, however is worse recently. Her speech is stable at this time. Objective - Vital Signs Vital signs: Vital Signs Temp 97.4 F L 03/01/24 02:01 Pulse 71 03/01/24 02:01 Resp 16 03/01/24 02:01 BP 130/78 03/01/24 02:01 Pulse Ox 99 03/01/24 02:01 FiO2 Intake & Output 02/29/24 03/01/24 03/01/24 18:59 06:59 18:59 Intake Total 354 Balance 354 Intake: Oral 354 Other: Voiding Method Toilet # Voids 4 1 - Exam Patient is alert and awake. Speech and language functions are normal. Sometimes she has word finding difficulty however. On muscle strength testing (right/left) hip flexion 4+/5, ankle dorsiflexion 5- /5, upper extremity strength is normal. Cerebellar functions revealed shakiness for [id number] testing. Patient walks with a walker, and without walker, she was feeling off-balance. - Labs CBC & Chem 7: 02/27/24 11:25 02/27/24 11:25 Assessment and Plan Assessment: * Relapsing remitting MS, with possible MS exacerbation, versus recrudescence. Patient's symptoms have been progressively getting worse even prior to receiving oculus. Possible MS exacerbation. Patient has numerous neurological symptoms including visual disturbance, speech difficulty, worseni ng of the numbness in the legs, bladder control issues, dragging right leg. Localization difficult to assess. * Patient has received first dose of Ocrevus day prior to arrival. * Vapor Plan: * Patient has just received Ocrevus first dose, the day prior to arrival to hospital. * MRI of the brain with and without contrast revealed scattered small hyperintensities within the subcortical white matter and right periventricular white matter are nonspecific but can be compatible with multiple sclerosis. Differential diagnosis includes vasculitis, chronic microvascular ischemic change, migraine headache, among other etiologies. The right periventricular hyperintensity appears to be an interval finding from the prior exam. No enlarging lesions are identified. No abnormal enhancement present on postcontrast images. I personally reviewed MRI, agree with the findings. * I again discussed with patient's neurologist Dr. Segura today. Informed heard the results of MRI. She mentioned that the patient feels "nervous", could arrange all 3 doses, but with such minimal change, she was more wondering about recrudescence. I discussed with patient and she feels her symptoms have been getting worse progressively in the last few weeks. Concerned about possible MS exacerbation. We will complete a three-day course of Solu-Medrol. Patient will receive a second dose of Solu-Medrol today (Sunday), and the third (last) dose tomorrow on Sunday and thereafter can be discharged after the infusion is completed. No need for oral tapering dose of prednisone. Dr. Segura office will contact patient for a follow-up appointment. * PT, OT, speech therapy
[2024-03-01 08:54] VITALS: BP 113/72; PULSE 56; TEMP 98.3
--- NOTE | 2024-03-01 17:58 | P.DS ---
Providers Date of admission: 02/27/24 11:29 Expected date of discharge: 03/01/24 Attending physician: Joshua Robertson Consults: 02/27/24 11:11 Consult Physician Routine Consulting Provider: Lei Robledo Consult Reason/Comments: weak, ms Do you want consulting provider notified?: Yes Primary care physician: [facility] Course: Chief Complaint: Tired This is a very pleasant 43-year-old patient who follows with Dr. Coyne. Chronic stable medical conditions include kidney stones, urinary incontinence, GERD, anxiety. Also diagnosis of multiple sclerosis. Left optic neuritis. Patient is accompanied by 18-year-old daughter in the ER. At the baseline patient has some lower extremity weakness. Urine incontinence. Some blurriness of the left eye. Occasional headaches. Yesterday patient received IV injection of Ocrevus. Intravenous. Still has some headache. Feeling tired. Monitor for neurological deficit worse except for some worsening of left eye blurriness. Speech at baseline is also a bit slow. No fever no chills. February 27: I seen the patient earlier this morning. Later MRI was done. No enhancing lesions. Discussed with Dr. Robledo from neurology. Patient did receive a dose of Solu-Medrol earlier today. Next dose is not due until tomorrow. Spoke to then patient again. She is concerned about her increased incontinence and weakness in the legs. Patient will be reviewed tomorrow by neurology and further decision from there. February 28: Patient is using a walker to ambulate. Mother at the bedside. Seen by Dr. Huston this afternoon. More IV's Solu-Medrol ordered. Possibly 1 more dose tomorrow. March 01: Patient received her third dose of Solu-Medrol today. Doing better. Keen to go home. She will follow-up with the neurologist in the next 2 to 3 days. She will call on Sunday. She does feel better. Walking is better. Being sent home with a walker to be on the safe side. Past medical history to include: Kidney stones, urinary incontinence, GERD, anxiety, left optic neuritis/multiple sclerosis Social history: Patient lives with her 2 children ages 14 and 18. 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 Physical examination: VITAL SIGNS: 98.3, 56, 16, 1 one 3 x 72, 98% room air GENERAL: BMI 45.7, comfortable EYES: Pupils equal. Conjunctiva normal. HEENT: External appearance of nose and ears normal, oral cavity grossly normal. NECK: JVD not raised; masses not palpable. HEART: First and second heart sounds are normal; no edema. LUNGS: Respiratory rate normal; clear to auscultation. ABDOMEN: Soft, nontender, liver spleen not palpable, no masses palpable. PSYCH: Alert and oriented x3; mood and affect tired MUSCULOSKELETAL:No Clubbing/cyanosis;muscles-grossly intact NEUROLOGICAL: Cranial nerves grossly intact; no facial asymmetry, . Vision through the left eye blurry. [Patient does have trouble walking, from using walker s] INVESTIGATIONS, reviewed in the clinical context: MRI brain [February 27] no new enhancing lesions. MRI was reviewed by neurologist Dr. Robledo 2. February 26: White count 4.6 hemoglobin 13.1 platelets 153 potassium 3.6 creatinine 0.65 TSH 1.4 Previous test: March 2023 MRI brain orbit with and without contrast: Mild a visiting white matter changes present the basis of known MS. No abnormal enhancing lesions evident. Left opt ic nerve consistent active optic neuritis. CT brain:White matter changes within the right posterior parietal region, similar to March 13. Brain orbit MRI. Mild nonspecific white matter changes present in the bases of abnormal enhancing lesions evident. Abnormal enhancement of the left optic nerve. Consistent no active optic neuritis. Assessment plan: -Acute on chronic multiple sclerosis, with some flareup in last few days. 6 monthly Ocrevus-received a dose the day before admission. IV Ygfg-Nfsant-3718 mg. 3 doses received -Chronic left eye optic neuritis,-multiple sclerosis. 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 mulitple sclorsis History of Any Multi-Drug Resistant Organisms: None Reported Past Surgical History: Section, Tonsillectomy Additional Past Surgical History / Comment(s): lithotripsy Past Anesthesia/Blood Transfusion Reactions: No Reported Reaction Past Psychological History: Anxiety Smoking Status: Former smoker, Vaper Past Alcohol Use History: Rare Past Drug Use History: Marijuana Plan - Discharge Summary New Discharge Prescriptions: Continue traZODone HCL [Desyrel] 50 mg PO HS Dextroamphetamine/Amphetamine [Adderall] 40 mg PO DIRECTED Magnesium (Unknown Strength) 1 tab PO DAILY Fesoterodine Fumarate [Fesoterodine Fumarate ER] 8 mg PO DAILY Pregabalin 150 mg PO BID Meloxicam [Mobic] 15 mg PO DAILY Ergocalciferol [Vitamin D2 (1250 Mcg = 35245 Iu)] 1,250 mcg PO GREER Fish Oil (Unknown Strength) 1 tab PO DAILY Baclofen 10 mg PO HS carBAMazepine 200 mg PO BID Ocrelizumab [Ocrevus] 1 dose IV Q180D Vitamin B Complex 1 cap PO DAILY No Action Linaclotide [Linzess] 290 mcg PO DAILY Discharge Medication List Dextroamphetamine/Amphetamine [Adderall] 40 mg PO DIRECTED 11/07/23 [History] Ergocalciferol [Vitamin D2 (1250 Mcg = 12495 Iu)] 1,250 mcg PO GREER 11/07/23 [History] Meloxicam [Mobic] 15 mg PO DAILY 11/07/23 [History] traZODone HCL [Desyrel] 50 mg PO HS 11/07/23 [History] Baclofen 10 mg PO HS 02/27/24 [History] Fesoterodine Fumarate [Fesoterodine Fumarate ER] 8 mg PO DAILY 02/27/24 [History] Fish Oil (Unknown Strength) 1 tab PO DAILY 02/27/24 [History] Linaclotide [Linzess] 290 mcg PO DAILY 02/27/24 [History] Magnesium (Unknown Strength) 1 tab PO DAILY 02/27/24 [History] Ocrelizumab [Ocrevus] 1 dose IV Q180D 02/27/24 [History] Pregabalin 150 mg PO BID 02/27/24 [History] Vitamin B Complex 1 cap PO DAILY 02/27/24 [History] carBAMazepine 200 mg PO BID 02/27/24 [History] Follow up Appointment(s)/Referral(s): jsoe cruz mejia [Other] - 3 Days Henry Coyne MD [Primary Care Provider] - 1-2 days Patient Instructions/Handouts: Multiple Sclerosis (DC) Activity/Diet/Wound Care/Special Instructions: f/u dr roberto billingsley - 3 days Discharge Disposition: HOME SELF-CARE
[2024-03-02] MEDS ORDERED: ERGOCALCIFEROL 1,250 MCG (50,000 IU) CAPSULE PO SCH (09:00)
== END 2024-03-01 13:24 | disposition home or self-care (01) | DRG 43 ==
LOC: EC 10:13 → 6NMEDSUR 11:11 → OBSVTOIN 11:29 → 5NMEDONC 11:33 → 6NMEDSUR 20:09
PROVIDERS: ADMIT Hospitalist; ATTEND Hospitalist
DX: G35 Multiple sclerosis (principal); E66.01 Morbid (severe) obesity due to excess calories; Z68.42 Body mass index [BMI] 45.0-49.9, adult; H46.9 Unspecified optic neuritis; Z28.310 Unvaccinated for COVID-19; Z28.21 Immunization not carried out because of patient refusal; M19.90 Unspecified osteoarthritis, unspecified site; N20.0 Calculus of kidney; H93.13 Tinnitus, bilateral; R47.81 Slurred speech; R32 Unspecified urinary incontinence; F41.9 Anxiety disorder, unspecified; Z87.442 Personal history of urinary calculi; K21.9 Gastro-esophageal reflux disease without esophagitis; Z87.891 Personal history of nicotine dependence; Z88.5 Allergy status to narcotic agent; Z88.8 Allergy status to other drugs, medicaments and biological substances; Z91.040 Latex allergy status; Z79.02 Long term (current) use of antithrombotics/antiplatelets; Z79.899 Other long term (current) drug therapy; Z79.1 Long term (current) use of non-steroidal anti-inflammatories (NSAID); Z71.3 Dietary counseling and surveillance
CPT/HCPCS: 70553; 80053; 81001; 83735; 84439; 84443; 84481; 85025; 96361; 96372; 96374; 96375; 99285

== ENCOUNTER → 2024-09-25 | Outpatient (CLI) | payer OTHER ==
--- NOTE | 2024-09-25 10:30 | US ---
EXAMINATION TYPE: US kidneys/renal and bladder DATE OF EXAM: 09/25/2024 COMPARISON: NONE CLINICAL INDICATION: Female, 44 years old with history of R10.9 UNSPECIFIED ABDOMINAL PAIN; TECHNIQUE: Grayscale and color Doppler imaging of the bilateral kidneys and urinary bladder: FINDINGS: EXAM MEASUREMENTS: Right Kidney: 12.7 x 6.4 x 6.6 cm Left Kidney: 10.0 x 4.7 x 4.7 cm Right Kidney: wnl Left Kidney: visualized portions wnl, limited by overlying bowel gas Bladder: not fully distended, appears wnl as seen There is no evidence for hydronephrosis at this point in time. Cortical medullary differentiation is maintained bilaterally. No nephrolithiasis is seen. No masses are identified. The urinary bladder i s anechoic. IMPRESSION: No hydronephrosis or nephrolithiasis. [facility], , 09/25/2024 10:28 AM
== END | disposition home or self-care (01) ==
LOC: RADUSWWP 09:47
PROVIDERS: ATTEND Family Medicine
DX: R10.9 Unspecified abdominal pain (principal)
CPT/HCPCS: 76770

== ENCOUNTER → 2024-10-20 | Outpatient (CLI) | payer OTHER ==
--- NOTE | 2024-10-20 14:29 | CT ---
EXAMINATION TYPE: CT abdomen pelvis wo con DATE OF EXAM: 10/20/2024 COMPARISON: None CLINICAL INDICATION: Female, 44 years old with history of R10.31 R10.11 R10.9; PHH, Right sided stabb ing pain X 1 month TECHNIQUE: CT scan of the abdomen and pelvis is performed without oral or IV contrast. CT DLP: 1227.[address] CTDI: mGy Automated exposure control for dose reduction was used. FINDINGS: Within the limitations of a non-contrast study, the following observations are made. The lungs are clear. Gallbladder is normal and there is no gallstone, wall thickening, pericholecystic fluid or distention . There is no biliary ductal dilatation. There is no organomegaly of the liver, pancreas, spleen or adrenal glands. There is a 4.5 mm right renal calcification. There is suggestion of slight dilatation of the right co llecting system and the possibility of minimal hydronephrosis cannot be excluded. There is hypertroph y of the right kidney. The left kidney is atrophic and there is a nonobstructing 3.4 mm calcification within the left kidney. The caliber of the abdominal aorta is normal and there is no retroperitoneal adenopathy or hemorrhage . The bowel loops are normal in caliber is no evidence of obstruction. No inflammatory changes are iden tified in the mesentery and there is no free intraperitoneal air or fluid. There is no pelvic mass, free fluid, abscess or adenopathy. There is an 8.5 mm sclerotic density in t he left iliac wing which possibly represents a bone island. IMPRESSION: 1. Single small bilateral renal calculi.. 2. Cannot exclude minimal hydronephrosis of the right kidney and short-term follow-up is recommended [facility], , 10/20/2024 2:26 PM
== END | disposition home or self-care (01) ==
LOC: RADCTMAIN 12:15
PROVIDERS: ATTEND Family Medicine
DX: N20.0 Calculus of kidney (principal); R10.31 Right lower quadrant pain; R10.11 Right upper quadrant pain
CPT/HCPCS: 74176

== ENCOUNTER 2024-10-30 17:17 | Emergency (ER) | payer OTHER ==
--- NOTE | 2024-10-30 19:17 | ED ---
Back Pain HPI - General Chief Complaint: Back Pain/Injury Stated Complaint: SOB,KIDNEY PAIN Time Seen by Provider: 10/30/24 18:19 Source: patient, RN notes reviewed, old records reviewed Limitations: no limitations - History of Present Illness Initial Comments: This is a 44-year-old female to the ER for evaluation of flank pain severe right flank pain with history of hydronephrosis and abnormal CAT scan with history of kidney stones. Patient has had pain for a month with significantly increasing pain and persistent pain bring her to the ER today with concern for a outpatient CT scan results and be because of the symptoms MD Complaint: back pain -: hour(s) Similar Symptoms Previously: Yes Place: home Radiation: none Severity: moderate Severity scale (1-10): 7 Quality: sharp, stabbing Consistency: constant Improves With: none Worsens With: none Context: other Associated Symptoms: denies other symptoms - Related Data Home Medications Medication Instructions Recorded Confirmed Dextroamphetamine/Amphetamine 40 mg PO DIRECTED 11/07/23 02/27/24 [Adderall] Ergocalciferol [Vitamin D2 (1250 1,250 mcg PO GREER 11/07/23 02/27/24 Mcg = 77924 Iu)] Meloxicam [Mobic] 15 mg PO DAILY 11/07/23 02/27/24 traZODone HCL [Desyrel] 50 mg PO HS 11/07/23 02/27/24 Baclofen 10 mg PO HS 02/27/24 02/27/24 Fesoterodine Fumarate 8 mg PO DAILY 02/27/24 02/27/24 [Fesoterodine Fumarate ER] Fish Oil (Unknown Strength) 1 tab PO DAILY 02/27/24 02/27/24 Linaclotide [Linzess] 290 mcg PO DAILY 02/27/24 02/27/24 Magnesium (Unknown Strength) 1 tab PO DAILY 02/27/24 02/27/24 Ocrelizumab [Ocrevus] 1 dose IV Q180D 02/27/24 02/27/24 Pregabalin 150 mg PO BID 02/27/24 02/27/24 Vitamin B Complex 1 cap PO DAILY 02/27/24 02/27/24 carBAMazepine 200 mg PO BID 02/27/24 02/27/24 Allergies Allergy/AdvReac Type Severity Reaction Status Date / Time latex Allergy Rash/Hives Verified 10/30/24 17:29 natalizumab [From Tysabri] Allergy Rash/Hives Verified 10/30/24 17:29 shellfish derived [Shellfish] Allergy Rash/Hives Verified 10/30/24 17:29 codeine AdvReac Nausea & Verified 10/30/24 17:29 Vomiting Review of Systems ROS Statement: Those systems with pertinent positive or pertinent negative responses have been documented in the HPI. ROS Other: All systems not noted in ROS Statement are negative. Past Medical History Past Medical History: Osteoarthritis (OA) Additional Past Medical History / Comment(s): Kidney stones. mulitple sclorsis History of Any Multi-Drug Resistant Organisms: None Reported Past Surgical History: Section, Tonsillectomy Additional Past Surgical History / Comment(s): lithotripsy Past Anesthesia/Blood Transfusion Reactions: No Reported Reaction Past Psychological History: Anxiety Smoking Status: Former smoker, Vaper Past Alcohol Use History: Rare Past Drug Use History: Marijuana - Past Family History Mother Family Medical History: Cancer, Hypertension Additional Family Medical History / Comment(s): cervical cancer Father Family Medical History: Hypertension Additional Family Medical History / Comment(s): hypoglycemia General Exam Limitations: no limitations General appearance: alert, in no apparent distress Head exam: Present: atraumatic, normocephalic, normal inspection Eye exam: Present: normal appearance, PERRL, EOMI. Absent: scleral icterus, conjunctival injection, periorbital swelling ENT exam: Present: normal exam, mucous membranes moist Neck exam: Present: normal inspection. Absent: tenderness, meningismus, lymphadenopathy Respiratory exam: Present: normal lung sounds bilaterally. Absent: respiratory distress, wheezes, rales, rhonchi, stridor Cardiovascular Exam: Present: regular rate, normal rhythm, normal heart sounds. Absent: systolic murmur, diastolic murmur, rubs, gallop, clicks GI/Abdominal exam: Present: soft, normal bowel sounds. Absent: distended, tenderness, guarding, rebound, rigid Extremities exam: Present: normal inspection, full ROM, normal capillary refill. Absent: tenderness, pedal edema, joint swelling, calf tenderness Back exam: Present: normal inspection Neurological exam: Present: alert, oriented X3, CN II-XII intact Psychiatric exam: Present: normal affect, normal mood Skin exam: Present: warm, dry, intact, normal color. Absent: rash Course Vital Signs 10/30/24 10/30/24 17:27 21:18 Temperature 98.6 F 98.5 F Pulse Rate 82 76 Respiratory 17 18 Rate Blood Pressure 124/81 126/88 O2 Sat by Pulse 100 100 Oximetry - Reevaluation(s) Reevaluation #1: 10/30/24 21:19 Medical records reviewed Reevaluation #2: 10/30/24 21:19 Patient symptoms improved Reevaluation #3: 10/30/24 21:19 Patient informed of results and questions answered Reevaluation #4: Was pt. sent in by a medical professional or institution (, [facility], PREP MANAGER, urgent care, hospital, or [facility]...) When possible be specific @ -no Did you speak to anyone other than the patient for history (EMS, parent, family, police, friend...)? What history was obtained from this source @ -no Did you review nursing and triage notes (agree or disagree)? Why? @ -agree Are old charts reviewed (outside hosp., previous admission, EMS record, old EKG, old radiological studies, urgent care reports/EKG's, [facility] records)? Report findings @ -yes Differential Diagnosis (chest pain, altered mental status, abdominal pain women, abdominal pain men, vaginal bleeding, weakness, fever, dyspnea, syncope, headache, dizziness, GI bleed, back pain, seizure, CVA, palpatations, mental health, musculoskeletal)? @ -prior EKG interpreted by me (3pts min.). @ -no X-rays interpreted by me (1pt min.). @ -no CT interpreted by me (1pt min.). @ -yes negative for acute disease U/S interpreted by me (1pt. min.). @ -no What testing was considered but not performed or refused? (CT, X-rays, U/S, labs)? Why? @ -none What meds were considered but not given or refused? Why? @ -none Did you discuss the management of the patient with other professionals (professionals i.e. [facility] Moreno, PREP MANAGER, lab, RT, psych nurse, social economist, clerical adjudicator, teacher, disciplinary hearing officer, correctional counselor/case manager)? Give summary @ -no Was smoking cessation discussed for >3mins.? @ -no Was critical care preformed (if so, how long)? @ -no Were there social determinants of health that impacted care today? How? (Homelessness, low income, unemployed, alcoholism, drug addiction, transportation, low edu. Level, literacy, decrease access to med. care, intermediate, rehab)? @ -none Was there de-escalation of care discussed even if they declined (Discuss DNR or withdrawal of care, Hospice)? DNR status @ -no What co-morbidities impacted this encounter? (DM, HTN, Smoking, COPD, CAD, Cancer, CVA, ARF, Chemo, Hep., AIDS, mental health diagnosis, sleep apnea, morbid obesity)? @ -none Was patient admitted / discharged? Hospital course, mention meds given and route, prescriptions, significant lab abnormalities, going to OR and other pertinent info. @ - 44 female to the ER for evaluation of severe back pain flank pain right flank pain with no cause found here in the ER normal lab testing normal urine normal CT scan. Patient will be discharged home Discharge Undiagnosed new problem with uncertain prognosis? @ -no Drug Therapy requiring intensive monitoring for toxicity (Heparin, Nitro, Insulin, Cardizem)? @ -no Were any procedures done? @ -no Diagnosis/symptom? @ -Back pain Acute, or Chronic, or Acute on Chronic? @ -Acute Uncomplicated (without systemic symptoms) or Complicated (systemic symptoms)? @ -Complicated Side effects of treatment? @ -no Exacerbation, Progression, or Severe Exacerbation? @ -exacerbation Poses a threat to life or bodily function? How? (Chest pain, [place], [place], pneumonia, PE, COPD, DKA, ARF, appy, cholecystitis, CVA, Diverticulitis, Homicidal, Suicidal, threat to staff... and all critical care pts) @ -no Reevaluation #5: Differential Abdominal Pain Women: Appendicitis, Cholecystitis, diverticulosis, ischemic bowel, pancreatitis, hepatitis, UTI, gastroenteritis, AAA, incarcerated hernia, bowel obstruction, constipation, inflammatory bowel, hepatitis, peptic ulcer disease, splenic infarction, perforated viscus, vulvitis, ovarian torsion, PID, kidney stone, placenta abruption, this is not meant to be an all-inclusive list Differential Back Pain: Strain, zoster, cauda equina syndrome, epidural abscess, vertebral osteomyelitis, discitis, fracture, subluxation, disc herniation, DJD, spinal stenosis, dissection, AAA, pancreatitis, peptic ulcer disease, pyelonephritis, kidney stone, this is not meant to be an all-inclusive list. Medical Decision Making - Medical Decision Making 44 female to the ER for evaluation of severe back pain flank pain right flank pain with no cause found here in the ER normal lab testing normal urine normal CT scan. Patient will be discharged home - Lab Data Result diagrams: 10/30/24 19:31 10/30/24 19:31 Lab Results 10/30/24 10/30/24 10/30/24 Range/Units 19:21 19:31 19:31 WBC 5.3 (3.8-10.6) k/uL RBC 4.19 (3.80-5.40) m/uL Hgb 13.4 (11.4-16.0) gm/dL Hct 40.4 (34.0-46.0) % MCV 96.3 (80.0-100.0) fL MCH 31.9 (25.0-35.0) pg MCHC 33.2 (31.0-37.0) g/dL RDW 12.3 (11.5-15.5) % Plt Count 221 (150-450) k/uL MPV 8.2 Neutrophils % 57 % Lymphocytes % 32 % Monocytes % 6 % Eosinophils % 1 % Basophils % 1 % Neutrophils # 3.0 (1.3-7.7) k/uL Lymphocytes # 1.7 (1.0-4.8) k/uL Monocytes # 0.3 (0-1.0) k/uL Eosinophils # 0.1 (0-0.7) k/uL Basophils # 0.0 (0-0.2) k/uL Sodium 137 (137-145) mmol/L Potassium 4.2 (3.5-5.1) mmol/L Chloride 116 H (98-107) mmol/L Carbon Dioxide 17 L (22-30) mmol/L Anion Gap 4 mmol/L BUN 25 H (7-17) mg/dL Creatinine 0.71 (0.52-1.04) mg/dL Est GFR (CKD-EPI)AfAm >90 (>60 ml/min/1.73 sqM) Est GFR (CKD-EPI)NonAf >90 (>60 ml/min/1.73 sqM) Glucose 93 (74-99) mg/dL Calcium 8.9 (8.4-10.2) mg/dL Total Bilirubin 0.4 (0.2-1.3) mg/dL AST 21 (14-36) U/L ALT 18 (4-34) U/L Alkaline Phosphatase 85 (38-126) U/L Total Protein 6.7 (6.3-8.2) g/dL Albumin 4.1 (3.5-5.0) g/dL Amylase 69 (30-110) U/L Lipase 142 (23-300) U/L Urine Color Colorless Urine Appearance Clear (Clear) Urine pH 6.5 (5.0-8.0) Ur Specific Pierz 1.019 (1.001-1.035) Urine Protein Negative (Negative) Urine Glucose (UA) Negative (Negative) Urine Ketones Negative (Negative) Urine Blood Trace H (Negative) Urine Nitrite Negative (Negative) Urine Bilirubin Negative (Negative) Urine Urobilinogen <2.0 (<2.0) mg/dL Ur Leukocyte Esterase Negative (Negative) Urine RBC 2 (0-5) /hpf Urine WBC 1 (0-5) /hpf Ur Squamous Epith Cells 2 (0-4) /hpf Urine Mucus Rare H (None) /hpf - Radiology Data Radiology results: report reviewed (CT abdomen pelvis negative for acute disease), image reviewed Disposition Clinical Impression: Renal colic on right side Disposition: HOME SELF-CARE Condition: Good Instructions (If sedation given, give patient instructions): Abdominal Pain (E D), Flank Pain (ED) Is patient prescribed a controlled substance at d/c from ED?: No Referrals: Henry Coyne MD [Primary Care Provider] - 1-2 days Time of Disposition: 20:50
[2024-10-30] MEDS: SODIUM CHLORIDE 0.9% 1,000 ML IV STA (19:33)
[2024-10-30] MEDS: ONDANSETRON 4 MG/2 ML VIAL IVP STA (19:34)
[2024-10-30] MEDS: KETOROLAC 15 MG/ML 1 ML VIAL IVP STA (19:34)
[2024-10-30 19:36] LABS: Basophils % (A) 1 %; Eosinophils # (A) 0.1 k/uL (0-0.7); Eosinophils % (A) 1 %; HCT 40.4 % (34.0-46.0); HGB 13.4 gm/dL (11.4-16.0); Lymphocytes # (A) 1.7 k/uL (1.0-4.8); Lymphocytes % (A) 32 %; MCH 31.9 pg (25.0-35.0); MCHC 33.2 g/dL (31.0-37.0); MCV 96.3 fL (80.0-100.0); Mean Platelet Volume 8.2; Monocytes # (A) 0.3 k/uL (0-1.0); Monocytes % (A) 6 %; Neutrophils % (A) 57 %; Platelet Count 221 k/uL (150-450); RBC 4.19 m/uL (3.80-5.40); RDW 12.3 % (11.5-15.5); WBC 5.3 k/uL (3.8-10.6)
[2024-10-30 19:46] LABS: ALT 18 U/L (4-34); AST 21 U/L (14-36); African American GFR (CKD) >90 (>60 ml/min/1.73 sqM); Albumin 4.1 g/dL (3.5-5.0); Alkaline Phosphatase 85 U/L (38-126); Amylase 69 U/L (30-110); Anion Gap 4 mmol/L; Blood Urea Nitrogen 25 mg/dL (7-17); Calcium 8.9 mg/dL (8.4-10.2); Carbon Dioxide 17 mmol/L (22-30); Chloride 116 mmol/L (98-107); Glucose 93 mg/dL (74-99); Lipase 142 U/L (23-300); Non-African American GFR(CKD) >90 (>60 ml/min/1.73 sqM); Potassium 4.2 mmol/L (3.5-5.1); Sodium 137 mmol/L (137-145); Total Bilirubin 0.4 mg/dL (0.2-1.3); Total Protein 6.7 g/dL (6.3-8.2)
[2024-10-30 20:03] LABS: Appearance,Urine Clear (Clear); Bilirubin,Urine Negative (Negative); Blood,Urine Trace (Negative); Color,Urine Colorless; Glucose,Urine (UA) Negative (Negative); Ketones,Urine Negative (Negative); Leukocyte Esterase,Urine Negative (Negative); Mucus,Urine Rare /hpf; Nitrite,Urine Negative (Negative); PH, Urine 6.5 (5.0-8.0); Protein,Urine Negative (Negative); RBC,Urine 2 /hpf (0-5); Specific Gravity,Urine 1.019 (1.001-1.035); Squamous Epithelial Cell,Urine 2 /hpf (0-4); Urobilinogen,Urine <2.0 mg/dL (<2.0); WBC,Urine 1 /hpf (0-5)
--- NOTE | 2024-10-30 20:46 | CT ---
EXAMINATION TYPE: CT abdomen pelvis wo con CT DLP: 1170.3 mGycm, Automated exposure control for dose reduction was used. DATE OF EXAM: 10/30/2024 8:08 PM COMPARISON: CT abdomen pelvis 10/20/2024 CLINICAL INDICATION:Female, 44 years old with history of abdominal pain; Abdominal pain more towards right flank. TECHNIQUE: Axial CT abdomen pelvis wo con;Sagittal and coronal reformats were created on a separate workstation. Contrast used: mL of , (none if empty) Oral contrast used: without Oral Contrast (none if empty) FINDINGS: LOWER CHEST: Unremarkable ABDOMEN LIVER: Unremarkable GALLBLADDER AND BILE DUCTS: Unremarkable. PANCREAS: Unremarkable. SPLEEN: Unremarkable. ADRENAL GLANDS: Unremarkable. KIDNEYS AND URETERS: Right renal sinus cystic changes are suggested. No evidence of hydronephrosis. R edemonstrated bilateral sub-5 mm nonobstructing renal calculi or numerous involving the left kidney. The left kidney is again noted to be asymmetrically atrophic. The bilateral ureters are unremarkable. PELVIS BLADDER: Incompletely distended and not fully visualized. REPRODUCTIVE: Unremarkable. ABDOMEN & PELVIS STOMACH AND BOWEL: Stomach is grossly unremarkable. Small bowel is of normal caliber. There is mild f atty infiltration of the proximal descending colon which may represent sequela of an inflammatory bow el process. No evidence of bowel obstruction. PERITONEUM/RETROPERITONEUM: No evidence of pneumoperitoneum or free fluid. VASCULATURE: No aneurysmal changes. MUSCULOSKELETAL: No acute osseous abnormalities LYMPH NODES: No gross evidence for lymphadenopathy. SOFT TISSUE/ABDOMINAL WALL: Unremarkable IMPRESSION: Bilateral sub-5 mm nonobstructive renal calculi more stones noted in the left kidney. No hydronephros is. [facility], , 10/30/2024 8:44 PM
[2024-10-30] MEDS: SODIUM CHLORIDE 0.9% 500 ML 500 ML IV STA (20:54)
[2024-10-30] MEDS: HYDROmorphone 1 MG/ML 1 ML SYRINGE IVP STA (20:59)
[2024-10-30] MEDS: IBUPROFEN 600 MG STARTER PACK 4 TAB BTL PO STA (21:03)
[2024-10-30] MEDS: traMADol 50 MG STARTER PACK 3 TAB BTL PO STA (21:05)
[2024-10-30] MEDS: ONDANSETRON 4 MG ODT STARTER PACK 2 TAB BTL PO STA (21:05)
[2024-10-30 21:21] VITALS: BP 126/88; PULSE 76; RESP 18; TEMP 98.5
== END 2024-10-30 21:25 | disposition home or self-care (01) ==
LOC: EC 17:17
DX: N20.0 Calculus of kidney (principal); F17.290 Nicotine dependence, other tobacco product, uncomplicated; Z88.5 Allergy status to narcotic agent; Z91.040 Latex allergy status; Z91.013 Allergy to seafood; Z91.048 Other nonmedicinal substance allergy status
CPT/HCPCS: 36415; 80053; 82150; 83690; 85025; 81001; 74176; 99285; 96374; 96375; 96361; S0119; J2405; J1171; J1885

== ENCOUNTER 2024-11-20 07:29 | Day surgery (SDC) | payer OTHER ==
--- NOTE | 2024-11-19 19:55 | P.GSHP ---
History of Present Illness H&P Date: 11/19/24 Chief Complaint: Right flank pain The patient is a 44-year-old white female with a history of kidney stones. She has previously undergone ESWL as well as ureteroscopic removal of calculi. She has a history of mixed urinary incontinence, for which she is taking Gemtesa. She has experienced right flank pain since late August, which she believes is renal in origin though it does increase with movement at times. CT scan has shown a 2-3 mm right upper pole renal calculus as well as 3-4 left renal calculi measuring up to 4 mm in size. - Constitutional Constitutional: Reports chills, Denies fever - Gastrointestinal Gastrointestinal: Reports nausea - Genitourinary (Female) Genitourinary: Reports flank pain, Reports kidney stones, Denies hematuria Past Medical History Past Medical History: Osteoarthritis (OA) Additional Past Medical History / Comment(s): Kidney stones. 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 History of Any Multi-Drug Resistant Organisms: None Reported Past Surgical History: Section, Tonsillectomy Additional Past Surgical History / Comment(s): lithotripsy D & C for missed ab, wisdom teeth Past Anesthesia/Blood Transfusion Reactions: No Reported Reaction Smoking Status: Former smoker, Vaper - Past Family History Mother Family Medical History: Cancer, Hypertension Additional Family Medical History / Comment(s): cervical cancer Father Family Medical History: Hypertension Additional Family Medical History / Comment(s): hypoglycemia Medications and Allergies Home Medications Medication Instructions Recorded Confirmed Type Dextroamphetamine/Amphetamine 60 mg PO DIRECTED 11/07/23 11/17/24 History [Adderall] Ergocalciferol [Vitamin D2 (1250 1,250 mcg PO GREER 11/07/23 11/17/24 History Mcg = 73276 Iu)] Meloxicam [Mobic] 15 mg PO DAILY 11/07/23 11/17/24 History traZODone HCL [Desyrel] 50 mg PO HS 11/07/23 11/17/24 History Baclofen 10 mg PO HS 02/27/24 11/17/24 History Fesoterodine Fumarate 8 mg PO DAILY 02/27/24 11/17/24 History [Fesoterodine Fumarate ER] Fish Oil (Unknown Strength) 1 tab PO DAILY 02/27/24 11/17/24 History Linaclotide [Linzess] 290 mcg PO DAILY 02/27/24 11/17/24 History Magnesium (Unknown Strength) 1 tab PO DAILY 02/27/24 11/17/24 History Ocrelizumab [Ocrevus] 1 dose IV Q180D 02/27/24 11/17/24 History Pregabalin 150 mg PO BID 02/27/24 11/17/24 History Vitamin B Complex 1 cap PO DAILY 02/27/24 11/17/24 History carBAMazepine 200 mg PO BID 02/27/24 11/17/24 History Allergies Allergy/AdvReac Type Severity Reaction Status Date / Time latex Allergy Rash/Hives Verified 11/17/24 08:07 natalizumab [From Tysabri] Allergy Rash/Hives Verified 11/17/24 08:07 shellfish derived [Shellfish] Allergy Rash/Hives Verified 11/17/24 08:07 codeine AdvReac Nausea & Verified 11/17/24 08:07 Vomiting Surgical - Exam - General well developed, well nourished, no distress - Respiratory normal respiratory effort - Psychiatric oriented to time, oriented to person, oriented to place, speech is normal, memory intact Results - Imaging CT scan - abdomen: report reviewed, image reviewed Assessment and Plan (1) Calculus of kidney Status: Acute Code(s): N20.0 - CALCULUS OF KIDNEY SNOMED Code(s): 06576548 Plan: Cystoscopy, bilateral ureteroscopy with Holmium laser lithotripsy, possible stone basketing, and ureteral stent insertion. The patient is aware of potential risks, which include anesthesia, bleeding, infection, ureteral injury, and inability to remove all calculi. She is also aware of the possibility that her pain will persist despite successful removal of her calculi.
[2024-11-20] MEDS ORDERED: HYDROmorphone 0.5 MG/0.5 ML SYRINGE IVP PRN (07:44)
[2024-11-20] MEDS ORDERED: droPERidol 5 MG/2 ML VIAL IVP PRN (07:44)
[2024-11-20] MEDS ORDERED: LIDOCAINE 1% (10MG/ML) FOR IV START INTRADERMA PRN (07:44)
--- NOTE | 2024-11-20 07:57 | XR ---
EXAMINATION TYPE: XR KUB DATE OF EXAM: 11/20/2024 7:46 AM COMPARISON: CT 11/19/2024 CLINICAL INDICATION: Female, 44 years old with history of N20.0 calculus, , FINDINGS: There is moderate stool burden. Punctate hyperdense debris throughout the colon likely corresponds to ingested medication and can be correlated clinically. Lung bases are clear. Nonobstructive bowel gas pattern. A couple pelvic phleboliths redemonstrated. Nonobstructive renal calculi seen on CT not wel l seen radiographically. IMPRESSION: Nephrolithiasis seen on CT not well seen radiographically. Moderate stool burden. Punctat e hyperdense debris scattered throughout the colon may be seen with ingested antacids, multivitamins, certain medications, Pepto-Bismol, iron pills, and other heavy metals. Clinically correlate. [facility], , 11/20/2024 7:55 AM
[2024-11-20] MEDS: LACTATED RINGERS 1,000 ML IV SCH (08:33)
[2024-11-20] MEDS: LACTATED RINGERS 1,000 ML IV ONE ×2 (08:34→09:08)
[2024-11-20] MEDS: ONDANSETRON 4 MG/2 ML VIAL IVP ONE (08:37)
[2024-11-20] MEDS: DEXAMETHASONE SOD PHOSPHATE 4 MG/ML 1 ML VIAL IV ONE (08:38)
[2024-11-20] MEDS ORDERED: fentaNYL (PF) 50 MCG/ML 2 ML AMP ONE (09:28)
[2024-11-20] MEDS ORDERED: SUCCINYLCHOLINE CHLORIDE 200 MG/10 ML VIAL IV ONE (09:28)
[2024-11-20] MEDS ORDERED: KETOROLAC 15 MG/ML 1 ML VIAL ONE (09:28)
[2024-11-20] MEDS ORDERED: MIDAZOLAM 2 MG/2 ML VIAL ONE (09:28)
[2024-11-20] MEDS ORDERED: PROPOFOL 10 MG/ML 20 ML VIAL IV ONE (09:28)
[2024-11-20] MEDS: IOPAMIDOL-370 100ML BTL MISCELLANE ONE (10:11)
--- NOTE | 2024-11-20 10:36 | P.OP ---
Date of Procedure: 11/20/24 Preoperative Diagnosis: Right renal calculus, left renal calculi Postoperative Diagnosis: Right hydronephrosis, left renal calculi Procedure(s) Performed: Cystoscopy, right retrograde pyelogram, right ureteroscopy, left ureteroscopy with Holmium laser lithotripsy and stone basketing, bilateral ureteral stent insertion Anesthesia: IVAN Surgeon: Konrad Brooks Estimated Blood Loss (ml): 5 IV fluids (ml): 500 Pathology: other (Left renal calculus fragments, sent for chemical analysis) Condition: stable Disposition: PACU Indications for Procedure: The patient is a 44-year-old white female with a history of kidney stones. She has previously undergone ESWL as well as ureteroscopic removal of calculi. She has a history of mixed urinary incontinence, for which she is taking Gemtesa. She has experienced right flank pain since late August, which she believes is renal in origin though it does increase with movement at times. CT scan has shown a 2-3 mm right upper pole renal calculus as well as 3-4 left renal calculi measuring up to 4 mm in size. There does appear to be evidence of mild right hydronephrosis on the CT scan. Operative Findings: Moderate right hydronephrosis of indeterminate etiology. Several left renal calculi, successfully removed and/or fragmented. Description of Procedure: The patient was taken to the operating room and placed in the dorsolithotomy position, with legs supported in Venkata stirrups. The external genitalia was prepped and draped sterilely. The 30 lens was used to introduce the 21-Grenadian Bradford cystoscopic sheath through the urethra and into the bladder under direct vision. The bladder was examined in its entirety. Both ureteral orifices were normal anatomic location and configuration, and clear urine effluxed from both. No tumors or foreign bodies were seen. A 0.038 inch Glidewire was passed through the cystoscope. The right ureteral orifice was cannulated, and the Glidewire was advanced up to the renal pelvis. The cystoscope was removed, and an 11/13-Grenadian ureteral access catheter was passed over the wire, up to the mid ureter. The Bradford [employer] flexible ureteroscope was then passed through the ureteral access catheter sheath and advanced under direct vision up to the right renal pelvis. There was evidence of hydronephrosis. Each calyx was examined. No calculi were seen. The ureteroscope was slowly withdrawn. There did not appear to be any UPJ narrowing. With the tip of the ureteroscope in the mid ureter, contrast was injected. The ureter was normal in caliber, and the UPJ appeared to be open. There was evidence of moderate hydronephrosis. Contrast drained out of the ureter, but the renal pelvis remained filled with contrast. The cystoscope was replaced into the bladder. A 0.038 inch Glidewire was passed through the cystoscope. The left ureteral orifice was cannulated, and the Glidewire was advanced up to the renal pelvis. The cystoscope was removed, and an 11/13-Grenadian ureteral access catheter was passed over the wire, up to the mid ureter. The [employer] flexible ureteroscope was then passed through the ureteral access catheter sheath and advanced under direct vision up to the right renal pelvis. Each calyx was examined. A single calculus was seen in an upper pole calyx and another in a midpole calyx, each measuring approximately 4 mm in size. Several calculi were located within a lower pole calyx. The 272 micron Holmium laser probe was passed through the ureteroscope, and lithotripsy was performed to treat the upper pole and midpole calculi. A 0 tip 1.9 Grenadian nitinol basket was then used to remove the calculus fragments. Attention was then paid to the lower pole calyx, and several of the larger calculi were removed using the stone basket. These calculi were only 2 mm in size, and the remaining calculi were too small to remove via stone basketing. Pullout ureteroscopy showed no evidence of ureteral trauma. The Glidewire was passed through the ureteroscope, which was removed along with the ureteral access catheter sheath. The Glidewire was then backloaded into the cystoscope, which was passed into the bladder. A 24 cm, 4.8 Grenadian double-J ureteral stent was placed over the wire. Proper stent positioning was verified fluoroscopically and endoscopically. An identical stent was placed on the contralateral side in the same manner. The bladder was emptied and the cystoscope removed. The patient tolerated the procedure well and was taken to the recovery room in stable condition. [employer] ROCKS Report: Procedure Acuity: Elective Stone Size and Location: Left renal calculi measuring up to 3 to 4 mm in size Ureteral Dilation: No Ureteral Access Sheath Used: Yes Stone Sent for Analysis: Yes All Stones/Fragments Were Removed with a Basket: No Complications: No Preoperative Antibiotics Given: Yes Stent Placed: Yes If Stent Placed, Was String Left Attached: No If Stent Placed, When is it to be Removed: 2 weeks Discharge Medications: Tamsulosin, Toradol, tolterodine
[2024-11-20 10:39] VITALS: TEMP 97
[2024-11-20 10:45] VITALS: RESP 16
--- NOTE | 2024-11-20 11:02 | FL ---
EXAMINATION TYPE: FL guidance operating room DATE OF EXAM: 11/20/2024 FLUOROSCOPY 1.15 sec fl time used 23.883 dap bilateral stent placement rt side retrograde 15 images submitted. [facility], , 11/20/2024 10:59 AM
[2024-11-20 11:32] VITALS: BP 126/84; PULSE 60
== END 2024-11-20 12:10 | disposition home or self-care (01) ==
LOC: OR 07:29
PROVIDERS: ATTEND Urology
DX: N13.2 Hydronephrosis with renal and ureteral calculous obstruction (principal); G35 Multiple sclerosis; N39.46 Mixed incontinence; H46.9 Unspecified optic neuritis; H05.111 Granuloma of right orbit; F41.9 Anxiety disorder, unspecified; Z79.1 Long term (current) use of non-steroidal anti-inflammatories (NSAID); Z79.899 Other long term (current) drug therapy; Z87.891 Personal history of nicotine dependence; Z87.442 Personal history of urinary calculi; Z91.040 Latex allergy status; Z88.5 Allergy status to narcotic agent; Z88.8 Allergy status to other drugs, medicaments and biological substances; Z91.013 Allergy to seafood
CPT/HCPCS: 81025; 82365; 74018; 52356; C2625; C1769; J2250; J0330; J1100; J0690; J2405; J3010; J1885; J2704; Q9967

== ENCOUNTER 2024-11-23 03:29 | Emergency (ER) | payer OTHER ==
[2024-11-23 04:12] LABS: Appearance,Urine Turbid (Clear); Bacteria,Urine Few /hpf; Bilirubin,Urine Negative (Negative); Blood,Urine Large (Negative); Color,Urine Red; Glucose,Urine (UA) Negative (Negative); Ketones,Urine Negative (Negative); Leukocyte Esterase,Urine Large (Negative); Nitrite,Urine Negative (Negative); PH, Urine 7.5 (5.0-8.0); Protein,Urine 3+ (Negative); RBC,Urine >182 /hpf (0-5); Urobilinogen,Urine <2.0 mg/dL (<2.0); WBC,Urine 51 /hpf (0-5)
--- NOTE | 2024-11-23 04:42 | ED ---
Abdominal Pain HPI - General Source: patient Mode of arrival: ambulatory - History of Present Illness Complaint: flank pain -: week(s) Location: R flank Radiation: none Migration to: no migration Severity: severe Quality: sharp Consistency: intermittent Improves With: medication Worsens With: nothing Associated Symptoms: hematuria Treatments Prior to Arrival: NSAIDs <Tex Pena - Last Filed: 11/23/24 08:17> - General Source: patient, RN notes reviewed, old records reviewed <Joshua Stuart - Last Filed: 11/23/24 09:19> - General Chief Complaint: Abdominal Pain Stated Complaint: ABD Pain Time Seen by Provider: 11/23/24 04:35 - History of Present Illness Initial Comments: Patient is a 44-year-old woman who presents to evaluation for right flank pain. She states she has had weeks of right flank pain intermittently. She had been seen and evaluated and noted to have presence of hydronephrosis. The patient was forwarded to urology and Dr. Lee had taken the patient to the OR for laser lithotripsy. Review of the procedure note shows that he had performed laser lithotripsy on stones in the left ureteral system. He had not found a stone on the right but there was evidence of some hydro nephrosis on the right side. The patient states that since the procedure she has been taking ketorolac and Flomax and the pain had been okay until tonight when it worsened. She is also having some nausea. No fever. She has noted some hematuria since the procedure. (Tex Pena) - Related Data Home Medications Medication Instructions Recorded Confirmed Dextroamphetamine/Amphetamine 60 mg PO DIRECTED 11/07/23 11/20/24 [Adderall] Ergocalciferol [Vitamin D2 (1250 1,250 mcg PO GREER 11/07/23 11/20/24 Mcg = 36188 Iu)] Meloxicam [Mobic] 15 mg PO DAILY 11/07/23 11/20/24 traZODone HCL [Desyrel] 50 mg PO HS 11/07/23 11/20/24 Baclofen 10 mg PO HS 02/27/24 11/20/24 Fesoterodine Fumarate 8 mg PO DAILY 02/27/24 11/20/24 [Fesoterodine Fumarate ER] Fish Oil (Unknown Strength) 1 tab PO DAILY 02/27/24 11/20/24 Linaclotide [Linzess] 290 mcg PO DAILY 02/27/24 11/20/24 Magnesium (Unknown Strength) 1 tab PO DAILY 02/27/24 11/20/24 Ocrelizumab [Ocrevus] 1 dose IV Q180D 02/27/24 11/20/24 Pregabalin 150 mg PO BID 02/27/24 11/20/24 Vitamin B Complex 1 cap PO DAILY 02/27/24 11/20/24 carBAMazepine 200 mg PO BID 02/27/24 11/20/24 acetaZOLAMIDE 250 mg PO BID 11/20/24 11/20/24 buPROPion [Wellbutrin] 100 mg PO BID 11/20/24 11/20/24 Previous Rx's Medication Instructions Recorded Ketorolac [Toradol] 10 mg PO Q6HR PRN #10 tab 11/20/24 Tamsulosin [Flomax] 0.4 mg PO DAILY #21 cap 11/20/24 Tolterodine ER [Detrol LA] 4 mg PO DAILY #21 cap 11/20/24 Ciprofloxacin HCl [Cipro] 500 mg PO BID 5 Days #10 tab 11/23/24 HYDROcodone/APAP 5-325MG [[place] 1 tab PO Q4HR PRN 3 Days #18 tab 11/23/24 5-325] Allergies Allergy/AdvReac Type Severity Reaction Status Date / Time latex Allergy Rash/Hives Verified 11/23/24 03:47 natalizumab [From Tysabri] Allergy Rash/Hives Verified 11/23/24 03:47 shellfish derived [Shellfish] Allergy Rash/Hives Verified 11/23/24 03:47 codeine AdvReac Nausea & Verified 11/23/24 03:47 Vomiting Review of Systems ROS Other: All systems not noted in ROS Statement are negative. Constitutional: Denies: fever, chills, weakness Respiratory: Denies: cough, dyspnea Cardiovascular: Denies: chest pain, palpitations, edema Gastrointestinal: Reports: abdominal pain, nausea. Denies: vomiting, diarrhea, constipation Genitourinary: Reports: hematuria. Denies: dysuria, frequency, discharge Musculoskeletal: Denies: back pain Skin: Denies: rash Neurological: Denies: headache, weakness Hematological/Lymphatic: Denies: easy bleeding <Tex Pena - Last Filed: 11/23/24 08:17> ROS Other: All systems not noted in ROS Statement are negative. <NarcisoJoshua - Last Filed: 11/23/24 09:19> ROS Statement: Those systems with pertinent positive or pertinent negative responses have been documented in the HPI. Past Medical History Past Medical History: Osteoarthritis (OA) Additional Past Medical History / Comment(s): Kidney stones. 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 History of Any Multi-Drug Resistant Organisms: None Reported Past Surgical History: Section, Tonsillectomy Additional Past Surgical History / Comment(s): lithotripsy D & C for missed ab, wisdom teeth Past Anesthesia/Blood Transfusion Reactions: No Reported Reaction Past Psychological History: Anxiety Smoking Status: Former smoker, Vaper - Past Family History Mother Family Medical History: Cancer, Hypertension Additional Family Medical History / Comment(s): cervical cancer Father Family Medical History: Hypertension Additional Family Medical History / Comment(s): hypoglycemia <Tex Pena - Last Filed: 11/23/24 08:17> General Exam General appearance: alert, in no apparent distress Eye exam: Present: normal appearance. Absent: scleral icterus, conjunctival injection Respiratory exam: Present: normal lung sounds bilaterally. Absent: respiratory distress, wheezes, rales, rhonchi, stridor, accessory muscle use Cardiovascular Exam: Present: regular rate, normal rhythm, normal heart sounds. Absent: systolic murmur, diastolic murmur, rubs, gallop GI/Abdominal exam: Present: soft. Absent: distended, tenderness, guarding, rebound, rigid, mass Back exam: Present: normal inspection, CVA tenderness (R), paraspinal tenderness. Absent: CVA tenderness (L) Neurological exam: Present: alert. Absent: motor sensory deficit Skin exam: Present: warm, dry, intact, normal color. Absent: rash <Tex Pena - Last Filed: 11/23/24 08:17> Course Vital Signs 11/23/24 03:42 Temperature 98.5 F Pulse Rate 77 Respiratory 18 Rate Blood Pressure 153/82 O2 Sat by Pulse 98 Oximetry Medical Decision Making - Lab Data Result diagrams: 11/23/24 04:52 11/23/24 04:52 <Tex Pena - Last Filed: 11/23/24 08:17> - Lab Data Result diagrams: 11/23/24 04:52 11/23/24 04:52 <Joshua Stuart - Last Filed: 11/23/24 09:19> - Medical Decision Making Patient signed out to me pending results of ultrasound. Ultrasound was interpre brodie by myself reveals mild hydronephrosis. Previous provider, Dr. Nye spoke with on-call Dr. Pillai. Patient recently had bilateral ureteral stents placed and they wanted to ensure there was no severe hydronephrosis. Otherwise patient will be discharged home with further pain medications as well as antibiotics. Patient follows with Dr. Lee. Laboratory studies obtained while patient was in the waiting room revealed blood in her urine with white blood cells and a few bacteria. Remainder the workup unremarkable. I updated the patient at this time. Patient is tearful because she has been dealing with pain for months now. I did discuss with her that at this time, we will attempt pain control at home with the [place] sent by Dr. Pena as well as a dose of Decadron prior to discharge. Patient will be given a prescription for ciprofloxacin. She was in agreement with this plan. Instructed her to follow- up with Dr. Brooks in the next 1 to 3 days. Diagnosis/symptom? @ -Abdominal pain, ureteral stents Acute, or Chronic, or Acute on Chronic? @ -Acute on chronic Uncomplicated (without systemic symptoms) or Complicated (systemic symptoms)? @ -Uncomplicated Side effects of treatment? @ -None Exacerbation, Progression, or Severe Exacerbation] @ -No Poses a threat to life or bodily function? @ -Unlikely at this time (Joshua Stuart) - Lab Data Lab Results 11/23/24 11/23/24 11/23/24 Range/Units 03:55 03:55 04:52 WBC 10.4 (3.8-10.6) k/uL RBC 3.72 L (3.80-5.40) m/uL Hgb 12.4 (11.4-16.0) gm/dL Hct 36.6 (34.0-46.0) % MCV 98.2 (80.0-100.0) fL MCH 33.3 (25.0-35.0) pg MCHC 33.9 (31.0-37.0) g/dL RDW 12.4 (11.5-15.5) % Plt Count 193 (150-450) k/uL MPV 8.2 Neutrophils % 80 % Lymphocytes % 12 % Monocytes % 5 % Eosinophils % 1 % Basophils % 0 % Neutrophils # 8.3 H (1.3-7.7) k/uL Lymphocytes # 1.3 (1.0-4.8) k/uL Monocytes # 0.5 (0-1.0) k/uL Eosinophils # 0.2 (0-0.7) k/uL Basophils # 0.1 (0-0.2) k/uL Sodium (137-145) mmol/L Potassium (3.5-5.1) mmol/L Chloride (98-107) mmol/L Carbon Dioxide (22-30) mmol/L Anion Gap mmol/L BUN (7-17) mg/dL Creatinine (0.52-1.04) mg/dL Est GFR (CKD-EPI)AfAm (>60 ml/min/1.73 sqM) Est GFR (CKD-EPI)NonAf (>60 ml/min/1.73 sqM) Glucose (74-99) mg/dL Calcium (8.4-10.2) mg/dL Total Bilirubin (0.2-1.3) mg/dL AST (14-36) U/L ALT (4-34) U/L Alkaline Phosphatase (38-126) U/L Total Protein (6.3-8.2) g/dL Albumin (3.5-5.0) g/dL Urine Color Red Urine Appearance Turbid H (Clear) Urine pH 7.5 (5.0-8.0) Ur Specific [place] 1.020 (1.001-1.035) Urine Protein 3+ H (Negative) Urine Glucose (UA) Negative (Negative) Urine Ketones Negative (Negative) Urine Blood Large H (Negative) Urine Nitrite Negative (Negative) Urine Bilirubin Negative (Negative) Urine Urobilinogen <2.0 (<2.0) mg/dL Ur Leukocyte Esterase Large H (Negative) Urine RBC >182 H (0-5) /hpf Urine WBC 51 H (0-5) /hpf Urine Bacteria Few H (None) /hpf Urine HCG, Qual Not Detected (Not Detectd) 11/23/24 Range/Units 04:52 WBC (3.8-10.6) k/uL RBC (3.80-5.40) m/uL Hgb (11.4-16.0) gm/dL Hct (34.0-46.0) % MCV (80.0-100.0) fL MCH (25.0-35.0) pg MCHC (31.0-37.0) g/dL RDW (11.5-15.5) % Plt Count (150-450) k/uL MPV Neutrophils % % Lymphocytes % % Monocytes % % Eosinophils % % Basophils % % Neutrophils # (1.3-7.7) k/uL Lymphocytes # (1.0-4.8) k/uL Monocytes # (0-1.0) k/uL Eosinophils # (0-0.7) k/uL Basophils # (0-0.2) k/uL Sodium 137 (137-145) mmol/L Potassium 4.5 (3.5-5.1) mmol/L Chloride 110 H (98-107) mmol/L Carbon Dioxide 16 L (22-30) mmol/L Anion Gap 11 mmol/L BUN 28 H (7-17) mg/dL Creatinine 1.11 H (0.52-1.04) mg/dL Est GFR (CKD-EPI)AfAm 71 (>60 ml/min/1.73 sqM) Est GFR (CKD-EPI)NonAf 61 (>60 ml/min/1.73 sqM) Glucose 110 H (74-99) mg/dL Calcium 8.9 (8.4-10.2) mg/dL Total Bilirubin 0.1 L (0.2-1.3) mg/dL AST 32 (14-36) U/L ALT 31 (4-34) U/L Alkaline Phosphatase 103 (38-126) U/L Total Protein 6.0 L (6.3-8.2) g/dL Albumin 3.8 (3.5-5.0) g/dL Urine Color Urine Appearance (Clear) Urine pH (5.0-8.0) Ur Specific [place] (1.001-1.035) Urine Protein (Negative) Urine Glucose (UA) (Negative) Urine Ketones (Negative) Urine Blood (Negative) Urine Nitrite (Negative) Urine Bilirubin (Negative) Urine Urobilinogen (<2.0) mg/dL Ur Leukocyte Esterase (Negative) Urine RBC (0-5) /hpf Urine WBC (0-5) /hpf Urine Bacteria (None) /hpf Urine HCG, Qual (Not Detectd) Disposition Is patient prescribed a controlled substance at d/c from ED?: Yes When asked, does pt state using other controlled substances?: No If prescribed controlled substance>3 days was MAPS reviewed?: Prescribed <3 Days If opioid is for acute pain is fill amount 7 days or less?: Yes If Rx opioid, was Start Talking consent form obtained?: Yes <Tex Pena - Last Filed: 11/23/24 08:17> Time of Disposition: 09:19 <Joshua Stuart - Last Filed: 11/23/24 09:19> Clinical Impression: Flank pain, Abdominal pain, Ureteral stent present Disposition: HOME SELF-CARE Condition: Good Instructions (If sedation given, give patient instructions): Abdominal Pain (ED) Prescriptions: Ciprofloxacin HCl [Cipro] 500 mg PO BID 5 Days #10 tab HYDROcodone/APAP 5-325MG [[place] 5-325] 1 tab PO Q4HR PRN 3 Days #18 tab PRN Reason: Pain Referrals: Henry Coyne MD [Primary Care Provider] - 1-2 days Konrad Brooks MD [STAFF PHYSICIAN] - 1-2 days
[2024-11-23] MEDS: KETOROLAC 15 MG/ML 1 ML VIAL IM STA (04:43)
[2024-11-23] MEDS: ONDANSETRON ODT 4 MG TAB PO STA (04:45)
[2024-11-23] MEDS: HYDROmorphone 1 MG/ML 1 ML SYRINGE IM STA ×3 (04:45→09:29)
[2024-11-23 05:10] LABS: Basophils # (A) 0.1 k/uL (0-0.2); Basophils % (A) 0 %; Eosinophils # (A) 0.2 k/uL (0-0.7); Eosinophils % (A) 1 %; HCT 36.6 % (34.0-46.0); HGB 12.4 gm/dL (11.4-16.0); Lymphocytes # (A) 1.3 k/uL (1.0-4.8); Lymphocytes % (A) 12 %; MCH 33.3 pg (25.0-35.0); MCHC 33.9 g/dL (31.0-37.0); MCV 98.2 fL (80.0-100.0); Mean Platelet Volume 8.2; Monocytes # (A) 0.5 k/uL (0-1.0); Monocytes % (A) 5 %; Neutrophils # (A) 8.3 k/uL (1.3-7.7); Neutrophils % (A) 80 %; Platelet Count 193 k/uL (150-450); RBC 3.72 m/uL (3.80-5.40); RDW 12.4 % (11.5-15.5); WBC 10.4 k/uL (3.8-10.6)
[2024-11-23 05:23] LABS: ALT 31 U/L (4-34); AST 32 U/L (14-36); African American GFR (CKD) 71 (>60 ml/min/1.73 sqM); Albumin 3.8 g/dL (3.5-5.0); Alkaline Phosphatase 103 U/L (38-126); Anion Gap 11 mmol/L; Blood Urea Nitrogen 28 mg/dL (7-17); Calcium 8.9 mg/dL (8.4-10.2); Carbon Dioxide 16 mmol/L (22-30); Chloride 110 mmol/L (98-107); Glucose 110 mg/dL (74-99); Non-African American GFR(CKD) 61 (>60 ml/min/1.73 sqM); Potassium 4.5 mmol/L (3.5-5.1); Sodium 137 mmol/L (137-145); Total Bilirubin 0.1 mg/dL (0.2-1.3)
--- NOTE | 2024-11-23 08:51 | US ---
EXAMINATION TYPE: US kidneys/renal and bladder DATE OF EXAM: 11/23/2024 COMPARISON: CT 10/30/2024 CLINICAL INDICATION: Female, 44 years old with history of evaluate for right sided hydro. R flank florina n; lithotripsy on TECHNIQUE: Grayscale imaging of the bilateral kidneys and urinary bladder: FINDINGS: EXAM MEASUREMENTS: Right Kidney: 15.3x6.8x7.2 cm Left Kidney: 10.5x40x5.3 cm Right Kidney: markedly enlarged, hydro Left Kidney: No hydronephrosis or masses seen, cortical thinning atrophic size compared to the right . Nonobstructing renal calculi better appreciated on CT. Bladder: wnl as best visualized, poorly distended Bilateral Jets seen: Yes No nephrolithiasis is appreciated on CT No masses are identified. The urinary bladder is anechoic. Impression: 1. Mild right hydronephrosis correlate for obstructive uropathy. Right renal calculi seen on prior C T not visualized. 2. Atrophic left kidney. [facility], , 11/23/2024 8:49 AM
[2024-11-23] MEDS: CIPROFLOXACIN HCL 500 MG TAB PO STA (09:28)
[2024-11-23] MEDS: DEXAMETHASONE SOD PHOSPHATE 4 MG/ML 1 ML VIAL IM STA (09:29)
[2024-11-23 09:46] VITALS: BP 148/82; PULSE 81; RESP 18; TEMP 98.1
== END 2024-11-23 09:42 | disposition home or self-care (01) ==
LOC: EC 03:29
DX: N13.2 Hydronephrosis with renal and ureteral calculous obstruction (principal); F17.290 Nicotine dependence, other tobacco product, uncomplicated; Z88.5 Allergy status to narcotic agent; Z91.013 Allergy to seafood; Z91.040 Latex allergy status; Z88.8 Allergy status to other drugs, medicaments and biological substances
CPT/HCPCS: 36415; 80053; 85025; 81001; 81025; 76770; 99284; 96372 ×5; J1100; J1171; J1885

== ENCOUNTER → 2024-12-29 | Outpatient (CLI) | payer OTHER ==
[~2024-12-29] MED LIST: FUROSEMIDE 10 MG/ML 2 ML VIAL IV STA
--- NOTE | 2024-12-29 10:46 | NM ---
EXAMINATION TYPE: NM lasix renogram DATE OF EXAM: 12/29/2024 COMPARISON: NONE CLINICAL INDICATION: Female, 44 years old with history of N13.30 UNSPECIFIED HYDRONEPHROSIS; Following administration of 9.66 mCi Tc 99m MAG3 with 20mg Lasix. Immediate images post injection FINDINGS: Left: 18.9 %. Right: 81.1 %. Max renal flow left: 4.0 minutes. Max renal flow right: 4.5 minutes. Satisfactory accumulation of radiotracer within both renal collecting systems. After the administrati on of Lasix, there is prompt excretion from both collecting systems. T 1/2 left: 14.9 minutes. T 1/2 right: 21.1 minutes. IMPRESSION: 1. Asymmetrically decreased left renal function. 2. Normal right inguinal response to Lasix. [facility], , 12/29/2024 10:44 AM
== END | disposition home or self-care (01) ==
LOC: RADNMMAIN 08:56
PROVIDERS: ATTEND Urology
DX: N13.30 Unspecified hydronephrosis (principal)
CPT/HCPCS: 78708; A9562

== ENCOUNTER → 2025-02-27 | Day surgery (SDC) | payer OTHER ==
[2025-02-25 10:18] VITALS: BMI 45.7
[~2025-02-27] MED LIST changes: -FUROSEMIDE 10 MG/ML 2 ML VIAL IV STA; +LIDOCAINE 1% (10MG/ML) FOR IV START INTRADERMA PRN; +LIDOCAINE 2% (PF) 20 MG/ML 5 ML VIAL ONE; +PROPOFOL 10 MG/ML 20 ML VIAL IV ONE
[2025-02-27] MEDS: IV FLUID CONTINUATION 1,000 ML IV ONE (07:19)
[2025-02-27] MEDS: LACTATED RINGERS 1,000 ML IV SCH (07:31)
[2025-02-27 07:33] VITALS: TEMP 97.3
--- NOTE | 2025-02-27 08:27 | P.PCN ---
Date of Procedure: 02/27/25 Procedure(s) Performed: Brief history: Patient is a pleasant 44-year-old white female scheduled for an elective upper endoscopy as well as colonoscopy as a part of evaluation of abdominal pain, abdominal bloating and change in bowel habits for the last several years duration Procedure performed: Esophagogastroduodenoscopy with biopsy Colonoscopy Preoperative diagnosis: Abdominal pain, abdominal bloating Chronic constipation/change in bowel habits Anesthesia: MAC Procedure: After informed consent was obtained from the patient was brought into the endoscopy unit and IV sedation was administered by anesthesia under continuous monitoring. Initially upper endoscopy was done. The Olympus GF 160 video endoscope was inserted inserted into the mouth and esophagus intubated without any difficulty and was gradually advanced into the stomach and duodenum and carefully examined. The bulb and second part of the duodenum appeared normal. Biopsies were done from the duodenum rule out celiac disease. The scope was then withdrawn into the stomach adequately insufflated with air and upon careful examination the antrum had mild gastritis and biopsies were done from this area. Mucosa of the body, cardia and fundus appeared normal. The scope was then withdrawn into the esophagus. The GE junction was located at 40 cm to the incisors. It appeared regular with no erythema erosions or ulcerations. Rest of the esophagus appeared normal. Patient tolerated the procedure well. At this time the patient continued to remain sedation. Initial digital rectal examination was normal. Olympus CF 160 video colonoscope was then inserted into the rectum and gradually advanced to the cecum without any difficulty. Careful examination was performed as the scope was gradually being withdrawn. The prep was excellent. The cecum, ascending colon, transverse colon, descending colon, appeared normal. 3 small polyps in the distal sigmoid colon measuring between 3 to 4 mm in size at the removed by cold biopsy. Rest sigmoid colon and rectum appeared normal. Retroflexion was performed in the rectum and no lesions were noted. Patient tolerated the procedure well. Impression: 1. Upper endoscopy revealed mild antral gastritis but no evidence of esophagitis or peptic ulcer disease 2. Colonoscopy revealed 3 polyps in the sigmoid colon measuring 3 to 4 mm in size status post cold biopsy Recommendations: Findings of this examination were discussed with the patient as well as her family. She was advised to follow the biopsy results. If the biopsy reveals adenoma she can have repeat colonoscopy in 5 years. In the meantime continue with current medications and she will be seen in the office in 2 weeks.
[2025-02-27 08:45] VITALS: BP 128/76; PULSE 88; RESP 16
== END | disposition home or self-care (01) ==
LOC: ORWHC2ENDO 06:38
PROVIDERS: ATTEND Internal Medicine Gastroenterology
DX: K29.50 Unspecified chronic gastritis without bleeding (principal); K63.5 Polyp of colon
CPT/HCPCS: 88305; 45380; 43239; J2704; J2003

== ENCOUNTER 2025-06-24 13:36 | Emergency (ER) | payer OTHER ==
--- NOTE | 2025-06-24 13:52 | ED ---
General Adult HPI - General Chief complaint: Abdominal Pain Stated complaint: Abd Pain Time Seen by Provider: 06/24/25 13:49 Source: patient, RN notes reviewed Mode of arrival: ambulatory Limitations: no limitations - History of Present Illness Initial comments: 45-year-old female with no reported medical conditions presenting to emergency department with complaints of abdominal pain prior to defecation that started yesterday evening. Patient states that she will experience abdominal cramping and having sudden urge to have a bowel movement that is liquidy stool with mucus. She denies hematochezia, melena, urinary changes. Endorses nausea and chills with no reported emesis or fevers. She states that she was swimming over the weekend in a river that was reportedly infested with E. coli. She denies recent antibiotic use or livestock exposure. Denies previous surgeries of the abdomen or history of diverticulitis. - Related Data Home Medications Medication Instructions Recorded Confirmed Ergocalciferol [Vitamin D2 (1250 1,250 mcg PO GREER 11/07/23 04/17/25 Mcg = 00338 Iu)] traZODone HCL [Desyrel] 50 mg PO HS 11/07/23 04/17/25 Baclofen 10 mg PO HS 02/27/24 04/17/25 Linaclotide [Linzess] 290 mcg PO DAILY 02/27/24 04/17/25 Pregabalin 150 mg PO BID 02/27/24 04/17/25 carBAMazepine 400 mg PO BID 02/27/24 04/17/25 acetaZOLAMIDE 250 mg PO BID 11/20/24 04/17/25 buPROPion [Wellbutrin] 100 mg PO BID 11/20/24 04/17/25 Dextroamphetamine/Amphetamine 30 mg PO DAILY 02/25/25 04/17/25 [Adderall] Famotidine [Pepcid] 20 mg PO BID 02/25/25 04/17/25 Vibegron [Gemtesa] 75 mg PO DAILY 02/25/25 04/17/25 Dextroamphetamine/Amphetamine 30 mg PO DAILY PRN 04/17/25 04/17/25 [Adderall] Eszopiclone [Lunesta] 2 mg PO DIRECTED 04/17/25 04/17/25 Prednisolone Acetate/Pf 1 drop BOTH EYES BID 05/23/25 05/23/25 [Prednisolone Acet 1% Eye Drop] polyethylene glycoL 3350 [Miralax] 17 gm PO BID 04/17/25 04/17/25 Previous Rx's Medication Instructions Recorded cefuroxime axetiL [Ceftin] 500 mg PO BID 4 Days #8 tab 04/20/25 Allergies Allergy/AdvReac Type Severity Reaction Status Date / Time latex Allergy Rash/Hives Verified 06/24/25 13:41 natalizumab [From Tysabri] Allergy Rash/Hives Verified 06/24/25 13:41 shellfish derived [Shellfish] Allergy Rash/Hives Verified 06/24/25 13:41 codeine AdvReac Nausea & Verified 06/24/25 13:41 Vomiting Review of Systems ROS Statement: Those systems with pertinent positive or pertinent negative responses have been documented in the HPI. ROS Other: All systems not noted in ROS Statement are negative. Past Medical History Past Medical History: Osteoarthritis (OA) Additional Past Medical History / Comment(s): Kidney stones. 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 History of Any Multi-Drug Resistant Organisms: None Reported Past Surgical History: Section, Tonsillectomy, Tubal Ligation Additional Past Surgical History / Comment(s): lithotripsy, D & C, wisdom teeth, Past Anesthesia/Blood Transfusion Reactions: No Reported Reaction Past Psychological History: Anxiety Smoking Status: Former smoker, Vaper Past Alcohol Use History: None Reported Past Drug Use History: Marijuana - Past Family History Mother Family Medical History: Cancer, Hypertension Additional Family Medical History / Comment(s): cervical cancer Father Family Medical History: Hypertension Additional Family Medical History / Comment(s): hypoglycemia General Exam Limitations: no limitations Respiratory exam: Present: normal lung sounds bilaterally. Absent: respiratory distress, wheezes, rales, rhonchi, stridor Cardiovascular Exam: Present: regular rate, normal rhythm, normal heart sounds. Absent: systolic murmur, diastolic murmur, rubs, gallop, clicks GI/Abdominal exam: Present: soft, tenderness (epigastric), normal bowel sounds. Absent: distended, guarding, rebound, rigid Extremities exam: Present: normal inspection, full ROM, normal capillary refill. Absent: tenderness, pedal edema, joint swelling, calf tenderness Back exam: Present: normal inspection. Absent: CVA tenderness (R), CVA tenderness (L) Course Vital Signs 06/24/25 06/24/25 13:38 15:09 Temperature 98.2 F 98.3 F Pulse Rate 78 97 Respiratory 18 16 Rate Blood Pressure 134/81 118/71 O2 Sat by Pulse 99 99 Oximetry Medical Decision Making - Medical Decision Making Was pt. sent in by a medical professional or institution (, PA, CAR DUMPER, urgent care, hospital, or long-term...) When possible be specific @ -No Did you speak to anyone other than the patient for history (EMS, parent, family, police, friend...)? What history was obtained from this source @ -No Did you review nursing and triage notes (agree or disagree)? Why? @ -I reviewed and agree with nursing and triage notes Were old charts reviewed (outside hosp., previous admission, EMS record, old EKG, old radiological studies, urgent care reports/EKG's, long-term records)? Report findings @ -No old charts were reviewed Differential Diagnosis (chest pain, altered mental status, abdominal pain women, abdominal pain men, vaginal bleeding, weakness, fever, dyspnea, syncope, headache, dizziness, GI bleed, back pain, seizure, CVA, palpatations, mental health, musculoskeletal)? @ -Differential Abdominal Pain Women: Appendicitis, Cholecystitis, diverticulosis, ischemic bowel, pancreatitis, hepatitis, UTI, gastroenteritis, AAA, incarcerated hernia, bowel obstruction, constipation, inflammatory bowel, hepatitis, peptic ulcer disease, splenic infar ction, perforated viscus, vulvitis, ovarian torsion, PID, kidney stone, placenta abruption, this is not meant to be an all-inclusive list EKG interpreted by me (3pts min.). @ -None X-rays interpreted by me (1pt min.). @ -None done CT interpreted by me (1pt min.). @ -None done U/S interpreted by me (1pt. min.). @ -Ultrasound of the gallbladder reveals mild right-sided hydronephrosis with no evidence of cholecystitis. What testing was considered but not performed or refused? (CT, X-rays, U/S, labs)? Why? @ -None What meds were considered but not given or refused? Why? @ -None Did you discuss the management of the patient with other professionals (professionals i.e. , PA, CAR DUMPER, lab, RT, psych nurse, health and social care teacher, breaker off, teacher, tactical deception plans officer, renal case manager)? Give summary @ -No Was smoking cessation discussed for >3mins.? @ -No Was critical care preformed (if so, how long)? @ -No Were there social determinants of health that impacted care today? How? (Homelessness, low income, unemployed, alcoholism, drug addiction, transportation, low edu. Level, literacy, decrease access to med. care, long term, rehab)? @ -No Was there de-escalation of care discussed even if they declined (Discuss DNR or withdrawal of care, Hospice)? DNR status @ -No What co-morbidities impacted this encounter? (DM, HTN, Smoking, COPD, CAD, Cancer, CVA, ARF, Chemo, Hep., AIDS, mental health diagnosis, sleep apnea, morbid obesity)? @ -None Was patient admitted / discharged? Hospital course, mention meds given and route, prescriptions, significant lab abnormalities, going to OR and other p ertinent info. @ - Discharge. 45-year-old female presenting with diarrhea and abdominal pain. Patient is well-appearing on examination. She is mild epigastric tenderness to palpation with no left-sided abdominal tenderness. She is right with IV fluids with concern for clinical dehydration. Laboratory testing is unremarkable. Ultrasound imaging reveals no acute process. Symptoms likely secondary to gastroenteritis. Recommend that she follow a clear liquid diet over the next 24 hours and after slowly reintroducing foods. Recommend that she does not take antidiarrheals at this time however if diarrhea does persist over the next 3 days then refer her to take Imodium as needed. Recommend follow-up with primary care provider for further evaluation. Case discussed with my attending Dr. Contreras Undiagnosed new problem with uncertain prognosis? @ -No Drug Therapy requiring intensive monitoring for toxicity (Heparin, Nitro, Insulin, Cardizem)? @ -No Were any procedures done? @ -No Diagnosis/symptom? @ -gastroenteritis Acute, or Chronic, or Acute on Chronic? @ -acute Uncomplicated (without systemic symptoms) or Complicated (systemic symptoms)? @ -uncomplicated Side effects of treatment? @ -No Exacerbation, Progression, or Severe Exacerbation? @ -No Poses a threat to life or bodily function? How? (Chest pain, USA, DE, pneumonia, PE, COPD, DKA, ARF, appy, cholecystitis, CVA, Diverticulitis, Homicidal, Suicidal, threat to staff... and all critical care pts) @ -No - Lab Data Result diagrams: 06/24/25 14:07 06/24/25 14:07 Lab Results 06/24/25 06/24/25 06/24/25 Range/Units 14:07 14:07 14:07 WBC 4.10 L (4.50-10.00) 10*3/uL RBC 4.07 L (4.10-5.20) 10*6/uL Hgb 13.1 (12.0-15.0) g/dL Hct 39.3 (37.2-46.3) % MCV 96.6 (80.0-97.0) fL MCH 32.2 H (27.0-32.0) pg MCHC 33.3 (32.0-37.0) g/dL Plt Count 208 (140-440) 10*3/uL MPV 11.0 (9.5-12.2) fL Immature Gran % (Auto) 0.2 % Neutrophils % 63.5 % Lymphocytes % 25.4 % Monocytes % 8.0 % Eosinophils % 2.2 % Basophils % 0.7 % Immature Gran # 0.01 (0.00-0.04) 10*3/uL Neutrophils # 2.60 (1.80-7.70) 10*3/uL Lymphocytes # 1.04 (0.90-5.00) 10*3/uL Monocytes # 0.33 (0.20-1.00) 10*3/uL Eosinophils # 0.09 (0.04-0.35) 10*3/uL Basophils # 0.03 (0.00-0.10) 10*3/uL Sodium 139 (137-145) mmol/L Potassium 4.4 (3.5-5.1) mmol/L Chloride 113 H (98-107) mmol/L Carbon Dioxide 17 L (22-30) mmol/L Anion Gap 9 mmol/L BUN 13 (7-17) mg/dL Creatinine 0.74 (0.52-1.04) mg/dL Est GFR (CKD-EPI)AfAm >90 (>60 ml/min/1.73 sqM) Est GFR (CKD-EPI)NonAf >90 (>60 ml/min/1.73 sqM) Glucose 95 (74-99) mg/dL Plasma Lactic Acid Parveen 0.7 (0.7-2.0) mmol/L Calcium 9.1 (8.4-10.2) mg/dL Total Bilirubin 0.4 (0.2-1.3) mg/dL AST 22 (14-36) U/L ALT 16 (4-34) U/L Alkaline Phosphatase 96 (38-126) U/L Total Protein 6.7 (6.3-8.2) g/dL Albumin 4.0 (3.5-5.0) g/dL Amylase 47 (30-110) U/L Lipase 43 (23-300) U/L Disposition Clinical Impression: Gastroenteritis Disposition: HOME SELF-CARE Condition: Good Instructions (If sedation given, give patient instructions): Gastroenteritis (ED) Additional Instructions: Please return to the Emergency Department if symptoms worsen or any other concerns. Is patient prescribed a controlled substance at d/c from ED?: No Referrals: Henry Coyne MD [Primary Care Provider] - 1-2 days Time of Disposition: 14:58
[2025-06-24] MEDS: SODIUM CHLORIDE 0.9% 1,000 ML IV ONE (14:11)
[2025-06-24 14:18] LABS: Basophils # (A) 0.03 10*3/uL (0.00-0.10); Basophils % (A) 0.7 %; Eosinophils # (A) 0.09 10*3/uL (0.04-0.35); Eosinophils % (A) 2.2 %; HCT 39.3 % (37.2-46.3); HGB 13.1 g/dL (12.0-15.0); Lymphocytes # (A) 1.04 10*3/uL (0.90-5.00); Lymphocytes % (A) 25.4 %; MCH 32.2 pg (27.0-32.0); MCHC 33.3 g/dL (32.0-37.0); MCV 96.6 fL (80.0-97.0); Monocytes # (A) 0.33 10*3/uL (0.20-1.00); Monocytes % (A) 8.0 %; Neutrophils # (A) 2.60 10*3/uL (1.80-7.70); Neutrophils % (A) 63.5 %; Platelet Count 208 10*3/uL (140-440); RBC 4.07 10*6/uL (4.10-5.20); RDW 12.1 % (11.5-14.5); WBC 4.10 10*3/uL (4.50-10.00)
[2025-06-24 14:28] LABS: ALT 16 U/L (4-34); African American GFR (CKD) >90 (>60 ml/min/1.73 sqM); Albumin 4.0 g/dL (3.5-5.0); Amylase 47 U/L (30-110); Anion Gap 9 mmol/L; Blood Urea Nitrogen 13 mg/dL (7-17); Calcium 9.1 mg/dL (8.4-10.2); Carbon Dioxide 17 mmol/L (22-30); Chloride 113 mmol/L (98-107); Glucose 95 mg/dL (74-99); Lipase 43 U/L (23-300); Non-African American GFR(CKD) >90 (>60 ml/min/1.73 sqM); Sodium 139 mmol/L (137-145); Total Protein 6.7 g/dL (6.3-8.2)
[2025-06-24 14:35] LABS: AST 22 U/L (14-36); Alkaline Phosphatase 96 U/L (38-126); Potassium 4.4 mmol/L (3.5-5.1)
--- NOTE | 2025-06-24 14:49 | US ---
EXAMINATION TYPE: US gallbladder DATE OF EXAM: 06/24/2025 COMPARISON: NONE CLINICAL INDICATION: Female, 45 years old with history of epigastric and RUQ ab pain, diarrhea; Abdom inal pain, diarrhea TECHNIQUE: Grayscale and color Doppler imaging of the right upper quadrant was performed. FINDINGS: EXAM MEASUREMENTS: Liver Length: 18.6 cm Gallbladder Wall: 0.2 cm CBD: 0.7 cm Right Kidney: 13.8 x 6.1 x 5.8 cm Pancreas: Tail obscured by overlying bowel gas Liver: enlarged Gallbladder: non-mobile hyperechoic area = 0.6cm ?polyp Evidence for sonographic Hernandez's sign: no CBD: slightly dilated Right Kidney: hydronephrosis IMPRESSION: Moderate right sided hydronephrosis [facility], , 06/24/2025 2:46 PM
[2025-06-24 15:10] VITALS: BP 118/71; PULSE 97; RESP 16; TEMP 98.3
== END 2025-06-24 15:06 | disposition home or self-care (01) ==
LOC: EC 13:36
DX: K52.9 Noninfective gastroenteritis and colitis, unspecified (principal); F17.290 Nicotine dependence, other tobacco product, uncomplicated; Z91.013 Allergy to seafood; Z88.5 Allergy status to narcotic agent; Z91.040 Latex allergy status; Z88.8 Allergy status to other drugs, medicaments and biological substances
CPT/HCPCS: 36415; 76705; 80053; 82150; 83605; 83690; 85025; 96360; 99284